=== PATIENT | female | born 1945 | race Caucasian/White ===

== ENCOUNTER → 2017-11-20 10:36 | Outpatient (CLI) | payer MEDICARE, BC, SELFPAY ==
[2017-11-20 11:56] LABS: Phosphorous 3.1 mg/dL (2.8-4.1)
[2017-11-20 12:12] LABS: Vitamin D 25 Hydroxy (D3) 58.1 ng/mL (30.0-100.0)
[2017-11-22 14:58] LABS: Parathyroid Hormone Int 134 pg/mL (14-64)
[2017-11-27 13:33] LABS: N-Telopeptide Serum 7.6 nM BCE (6.2-19.0)
== END ==
PROVIDERS: PCP Family Medicine; Visit Provider Nurse Practitioner
DX: M81.0 Age-related osteoporosis without current pathological fracture (principal)
CPT/HCPCS: 36415; 82306; 82310; 82523; 83970; 84100

== ENCOUNTER 2017-12-02 11:34 | Emergency (ER) | payer MEDICARE, BC, SELFPAY ==
[2017-12-02 11:35] VITALS: BP 180/69; PULSE 79; RESP 20; TEMP 36.4; O2SAT 98; BMI 20.7
--- NOTE | 2017-12-02 11:49 | DI.RAD.S_ITS ---
PROCEDURE: XR CHEST 1V INDICATIONS: Chest Pain TECHNIQUE: One view of the chest was acquired. COMPARISON: None. FINDINGS: Surgical changes and devices: None. Lungs and pleura: No pleural effusions or pneumothorax. Lungs are clear. Mild biapical pleural thickening. Mediastinum: Mediastinal contours appear normal. Heart size is normal. Bones and chest wall: No suspicious bony lesions. Degenerative a.c. joint disease, right greater than left. Overlying soft tissues appear unremarkable. IMPRESSION: No acute cardiopulmonary abnormality. Dictated by: Garry Santos M.D. on 12/02/2017 at 12:11 Approved by: Garry Santos M.D. on 12/02/2017 at 12:15
--- NOTE | 2017-12-02 11:50 | ED.CHESTPAIN ---
HPI - Chest Pain General Chief Complaint: Chest Pain Stated Complaint: PALPITATIONS,CHEST PAIN Time Seen by Provider: 12/02/17 11:40 Source: patient and family Mode of arrival: ambulatory Limitations: no limitations History of Present Illness HPI narrative: Patient presents to the emergency department with a chief complaint of left arm pain yesterday. She denies cardiac equivalent such as dizzy, weak or lightheaded. She denies nausea or vomiting. She denies any shortness of breath. MD complaint: other Onset (ago): day(s) Duration: intermittent Onset: during rest Pain location: other (Left arm) Severity: moderate Quality: sharp Pain radiation: LUE Relieving factors: rest Exacerbating factors: movement Related Data Home Medications Medication Instructions Recorded Confirmed risedronate 35 mg PO QWEEK #0 09/03/16 12/02/17 acyclovir 400 mg PO TID PRN 12/02/17 12/02/17 alprazolam 0.5 mg PO DAILY PRN 12/02/17 12/02/17 atorvastatin [Lipitor] 10 mg PO BEDTIME 12/02/17 12/02/17 sodium fluoride-pot nitrate 1 applic DENTAL DAILY 12/02/17 12/02/17 [PreviDent 5000 Sensitive] warfarin [Coumadin] 10 mg PO QPM 12/02/17 12/02/17 Previous Rx's Medication Instructions Recorded metoprolol tartrate 25 mg PO BID #180 tab 09/02/17 Allergies Allergy/AdvReac Type Severity Reaction Status Date / Time No Known Drug Allergies Allergy Verified 12/02/17 12:01 Review of Systems Review of Systems All systems reviewed & are unremarkable except as noted in HPI and below Constitutional Denies chills, Denies fever(s), Denies lethargy and Denies weakness Eyes Denies change in vision, Denies eye discharge, Denies irritation and Denies loss of vision ENT Ears, Nose, Mouth, and Throat: Denies change in voice, Denies neck pain and Denies sore throat Cardiovascular Denies chest pain, Denies irregular heart rhythm, Denies lightheadedness, Denies palpitations, Denies dyspnea, Denies dyspnea on exertion and Denies orthopnea Respiratory Denies cough, Denies dyspnea, Denies dyspnea on exertion and Denies wheezing Gastrointestinal Gastrointestinal: Denies abdominal pain, Denies change in bowel habits, Denies diarrhea, Denies nausea and Denies vomiting Genitourinary Denies hematuria, Denies flank pain, Denies urinary incontinence and Denies urinary urgency Musculoskeletal Denies neck pain and Reports radiating pain into limb Comments: Left arm pain Integumentary/Breasts Denies pruritus, Denies erythema, Denies rash and Denies wounds Neurologic Denies confusion, Denies loss of vision and Denies weakness Psychiatric Denies anxiety, Denies confusion, Denies depression, Denies homicidal ideation and Denies suicidal ideation Endocrine Denies palpitations Hematologic/Lymphatic Denies easy bruising Allergic/Immunologic Denies wheezing PFSH Surgical History History of hip replacement History of hip replacement Status post colostomy Status post hernia repair Status post hernia repair Family History Father Hypertension Mental health problem Mother Hypertension Hyperlipidemia Social History Smoking Status: Never smoker Exam Initial Vital Signs Initial Vital Signs: Vital Signs Temperature 97.6 F 12/02/17 11:35 Pulse Rate 79 12/02/17 11:35 Respiratory Rate 20 12/02/17 11:35 Blood Pressure 180/69 H 12/02/17 11:35 Pulse Oximetry 98 12/02/17 11:35 Const General: cooperative and well developed Nutritional Appearance: well nourished Orientation: alert, awake, oriented x3 and not confused Eyes General: appearance normal, both eyes and all related structures Eyelids: eyelids normal Conjunctivae: conjunctivae normal Sclera: sclerae normal Pupils: PERRL EOM: EOM intact bilaterally Chest Chest: normal inspection of the chest Cardio Rate: regular rate Rhythm: regular rhythm Heart Sounds: no click, no gallops, no murmurs and no rubs Pulses: normal peripheral pulses GI Inspection: non-distended Palpation: soft, no hepatosplenomegaly, No guarding, No pulsatile mass and No tender Auscultation: normal bowel sounds Back/Spine/Pelvis Back: No CVA tenderness Cervical Spine: cervical ROM normal and No pain with cervical ROM Thoracic/Lumbar Spine: thoracic and lumbar spine normal to inspection Skin General: no rashes or lesions noted, No jaundice and No petechiae Neuro General: alert, oriented x3, gait normal and no focal motor deficits Speech: speech normal Extrem Left upper extremity: shoulder/upper arm (With firm range of motion examination of left upper extremity patient has reproduction of the pain that brought her) Course Orders Ordered: ED Orders 12/02/17 11:18 Prothrombin Time INR Stat 12/02/17 11:48 Complete Blood Count AUTO DIFF Stat Comprehensive Metabolic Panel Stat Lipase Stat T4 Thyroxine Stat Thyroid Stimulating Hormone Stat Troponin with CK Cardiac Panel Stat 12/02/17 11:49 XR chest 1V Stat EKG-12 Lead Stat 12/02/17 12:59 CT angio chest PE protocol Stat 12/02/17 14:30 Troponin I Stat Discontinued Medications Aspirin (Aspirin Chew) 324 mg PO NOW ONE Stop: 12/02/17 11:46 Last Admin: 12/02/17 12:01 Dose: 324 mg Sodium Chloride (Normal Saline 0.9%) 1,000 mls @ 150 mls/hr IV CONT ZOHAIB Last Admin: 12/02/17 12:01 Dose: 150 mls/hr Vital Signs - 8 hr 12/02/17 12:36 12/02/17 13:30 12/02/17 14:33 Pulse Rate 53 L 98 H 50 L Respiratory Rate 22 20 13 Blood Pressure [Right Arm] 135/65 H 113/67 132/74 H Pulse Oximetry 100 96 100 12/02/17 15:30 Pulse Rate 47 L Respiratory Rate 17 Blood Pressure [Right Arm] 113/76 Pulse Oximetry 99 MDM - Chest Pain Differential Diagnosis Likely pneumothorax, stable angina, unstable angina pectoris, atypical chest pain, st elevation myocardial infarction, costochondritis and chest pain Medical Records Data Attestation: I reviewed the patient's medical records. Lab Data Attestation: I reviewed the patient's lab results. Result diagrams: 12/02/17 11:48 12/02/17 11:48 Lab Results 12/02/17 12/02/17 12/02/17 Range/Units 11:18 11:48 11:48 WBC 6.3 (4.5-11.0) X10^3/uL RBC 4.46 (4.0-5.2) X10^6/uL Hgb 13.5 (12.0-16.0) g/dL Hct 40.3 (36-46) % MCV 90.4 (80-100) fL MCH 30.3 (26-34) PG MCHC 33.5 (30-36) % RDW 14.1 (11.6-14.8) % Plt Count 220 (150-400) X10^3/uL Neut % (Auto) 51.1 (50-75) % Lymph % (Auto) 38.5 (25-40) % [place] % (Auto) 9.0 (3-14) % Eos % (Auto) 0.9 L (2-4) % Baso % (Auto) 0.5 (0-2) % Neut # (Auto) 3200 (5930-2986) /uL PT 28.4 H (10.1-12.7) SECONDS INR 2.6 H (0.9-1.3) Sodium 139 (137-145) mmol/L Potassium 4.1 (3.4-5.1) mmol/L Chloride 104 (98-107) mmol/L Carbon Dioxide 25 (22-32) mmol/L BUN 16 (7-17) mg/dL Creatinine 0.70 (0.52-1.04) mg/dL Estimated GFR > 60.0 (>60) mL/min BUN/Creatinine Ratio 22.9 H (6-22) Glucose 106 (80-110) mg/dL Calcium 10.4 H (8.4-10.2) mg/dL Total Bilirubin 0.7 (0.2-1.3) mg/dL AST 39 H (14-36) IU/L ALT 35 (9-52) IU/L Alkaline Phosphatase 74 (38-126) U/L Total Creatine Kinase 74 (30-135) U/L Troponin I < 0.012 (0.01-0.034) ng/mL Total Protein 7.7 (6.3-8.2) g/dL Albumin 4.7 (3.5-5.0) g/dL Globulin 3.0 (1.7-4.1) g/dL Albumin/Globulin Ratio 1.6 (1.0-2.8) Lipase 103 (23-300) U/L TSH (0.47-4.68) uIU/mL Thyroxine (T4) (5.5-11.0) ug/dL 12/02/17 12/02/17 Range/Units 11:48 14:30 WBC (4.5-11.0) X10^3/uL RBC (4.0-5.2) X10^6/uL Hgb (12.0-16.0) g/dL Hct (36-46) % MCV (80-100) fL MCH (26-34) PG MCHC (30-36) % RDW (11.6-14.8) % Plt Count (150-400) X10^3/uL Neut % (Auto) (50-75) % Lymph % (Auto) (25-40) % [place] % (Auto) (3-14) % Eos % (Auto) (2-4) % Baso % (Auto) (0-2) % Neut # (Auto) (4380-3553) /uL PT (10.1-12.7) SECONDS INR (0.9-1.3) Sodium (137-145) mmol/L Potassium (3.4-5.1) mmol/L Chloride (98-107) mmol/L Carbon Dioxide (22-32) mmol/L BUN (7-17) mg/dL Creatinine (0.52-1.04) mg/dL Estimated GFR (>60) mL/min BUN/Creatinine Ratio (6-22) Glucose (80-110) mg/dL Calcium (8.4-10.2) mg/dL Total Bilirubin (0.2-1.3) mg/dL AST (14-36) IU/L ALT (9-52) IU/L Alkaline Phosphatase (38-126) U/L Total Creatine Kinase (30-135) U/L Troponin I < 0.012 (0.01-0.034) ng/mL Total Protein (6.3-8.2) g/dL Albumin (3.5-5.0) g/dL Globulin (1.7-4.1) g/dL Albumin/Globulin Ratio (1.0-2.8) Lipase (23-300) U/L TSH 2.45 (0.47-4.68) uIU/mL Thyroxine (T4) 8.89 (5.5-11.0) ug/dL ABG Data Interpretation: PROCEDURE: CT ANGIO CHEST PE PROTOCOL INDICATIONS: CP, SOB, recent low INR, Factor V Leiden TECHNIQUE: After the administration of intravenous contrast, 2 mm thick sections acquired from the pulmonary apices to the posterior costophrenic angles. 3-dimensional maximum intensity projection (MIP) coronal and sagittal reformats were then acquired through the thorax. For radiation dose reduction, the following was used: automated exposure control, adjustment of mA and/or kV according to patient size. COMPARISON: None. FINDINGS: Image quality: Excellent. Pulmonary arteries: Pulmonary arteries are normal in size, and demonstrate no intraluminal filling defects to suggest central pulmonary embolism. Lungs and pleura: Atelectasis noted in the dependent portion the lung bases. 4 mm subpleural nodule noted in the left upper lobe (series 5, image 13). No pleural effusions or pneumothorax. Central and peripheral airways are patent. Mediastinum: Heart size is normal, without pericardial effusion. No mediastinal or hilar adenopathy. Thoracic aorta is normal in caliber and enhancement. Esophagus is normal in caliber, without hiatal hernia. Bones and chest wall: Mild pectus excavatum deformity noted. No suspicious bony lesions. Ribs and thoracic spine appear intact throughout. Spine degenerative disc disease and facet arthropathy. Thyroid gland is within normal limits. No axillary or supraclavicular adenopathy. Abdomen: Visualized upper abdominal solid organs appear normal in the early arterial phase of enhancement. IMPRESSION: 1. No pulmonary embolus. 2. 4 mm left upper lobe subpleural nodule. Recommend followup imaging based on criteria outlined below. Fleischner Society criteria for SOLID lung nodule followup. Nodule size (mm)Low-risk patientHigh-risk patient<6 (single or multiple)No routine followup.Optional CT at 12 months. 6-8 (single or multiple)CT at 6-12 months, then optional CT at 18-24 mo.CT at 6-12 months, then CT at 18-24 months. >8 (single)CT at 3 months, PET-CT, or biopsy. Same as for low-risk pts. >8 (multiple)CT at 3-6 months, then optional CT at 18-24 mo.CT at 3-6 months, then CT at 18-24 months. Recommendations do not apply to lung cancer screening, patients with immunosuppression, or patients with known primary cancer. Dictated by: Vinita Chris MD, PhD on 12/02/2017 at 12:53 Approved by: Vinita Chris MD, PhD on 12/02/2017 at 12:58 Discharge Plan Departure Patient Disposition: Home, Self-Care Clinical Impression: Heart palpitations, Arm pain, left Discharge Date/Time: 12/02/17 16:01 Interventions: ED Discharge Assessment Last Done: 12/02/17 16:00 Instructions: DI for Palpitations Activity Restrictions/Additional Instructions: *You have been diagnosed with [ palpitations, left arm pain ] *What to do: * continue to take medications as directed *Follow up with your primary care provider in 2-3 days, call tomorrow for an appointment *Return to ER if you should have any new, worsening or concerning symptoms Prescriptions: No Action risedronate 35 MG tablet,delayed release (DR/EC) 35 mg PO QWEEK Qty: 0 RF: 0 metoprolol tartrate 25 MG tablet 25 mg PO BID Qty: 180 RF: 2 alprazolam 0.5 mg tablet 0.5 mg PO DAILY PRN (Reason: Anxiety) RF: 0 sodium fluoride-pot nitrate [PreviDent 5000 Sensitive] 1.1-5 % paste 1 applic Dental DAILY RF: 0 atorvastatin [Lipitor] 10 mg tablet 10 mg PO BEDTIME RF: 0 warfarin [Coumadin] 10 MG tablet 10 mg PO QPM RF: 0 acyclovir 400 MG tablet 400 mg PO TID PRN (Reason: Cold Sores) RF: 0
[2017-12-02] MEDS: SODIUM CHLORIDE 0.9% 1,000 ML 150 ML IV (12:01)
[2017-12-02] MEDS: ASPIRIN 81 MG TAB 324 MG PO (12:01)
[2017-12-02 12:04] LABS: Add Manual Diff / Slide Review NO; Basophils Percent Auto 0.5 % (0-2); Eosinophils Percent Auto 0.9 % (2-4); Hematocrit 40.3 % (36-46); Hemoglobin 13.5 g/dL (12.0-16.0); Lymphocytes Percent Auto 38.5 % (25-40); Mean Corpuscular HGB Conc 33.5 % (30-36); Mean Corpuscular Hemoglobin 30.3 PG (26-34); Mean Corpuscular Volume 90.4 fL (80-100); Neutrophils Absolute Auto 3200 /uL (3000-5900); Neutrophils Percent Auto 51.1 % (50-75); Platelet Count 220 X10^3/uL (150-400); Red Blood Cell Count 4.46 X10^6/uL (4.0-5.2); Red Cell Distribution Width 14.1 % (11.6-14.8); White Blood Cell Count 6.3 X10^3/uL (4.5-11.0)
[2017-12-02 12:12] LABS: Alanine Aminotransferase 35 IU/L (9-52); Albumin 4.7 g/dL (3.5-5.0); Albumin Globulin Ratio 1.6 (1.0-2.8); Alkaline Phosphatase 74 U/L (38-126); Aspartate Aminotransferase 39 IU/L (14-36); BUN Creatinine Ratio 22.9 (6-22); Bilirubin Total 0.7 mg/dL (0.2-1.3); Blood Urea Nitrogen 16 mg/dL (7-17); Calcium 10.4 mg/dL (8.4-10.2); Carbon Dioxide 25 mmol/L (22-32); Chloride 104 mmol/L (98-107); Creatine Kinase 74 U/L (30-135); Estimated Glomerular Filt Rate > 60.0 mL/min (>60); Glucose 106 mg/dL (80-110); HEMOLYSIS 19 (0-50); Lipase 103 U/L (23-300); Potassium 4.1 mmol/L (3.4-5.1); Sodium 139 mmol/L (137-145); Total Protein 7.7 g/dL (6.3-8.2)
[2017-12-02 12:24] LABS: Troponin I < 0.012 ng/mL (0.01-0.034)
[2017-12-02 12:36] VITALS: BP 135/65; PULSE 53; RESP 22; O2SAT 100
[2017-12-02 12:39] LABS: T4 Total Thyroxine 8.89 ug/dL (5.5-11.0)
[2017-12-02 12:47] LABS: INR 2.6 (0.9-1.3); Prothrombin Time 28.4 SECONDS (10.1-12.7)
[2017-12-02 12:53] LABS: Thyroid Stimulating Hormone 2.45 uIU/mL (0.47-4.68)
--- NOTE | 2017-12-02 12:59 | DI.CT.S_ITS ---
PROCEDURE: CT ANGIO CHEST PE PROTOCOL INDICATIONS: CP, SOB, recent low INR, Factor V Leiden TECHNIQUE: After the administration of intravenous contrast, 2 mm thick sections acquired from the pulmonary apices to the posterior costophrenic angles. 3-dimensional maximum intensity projection (MIP) coronal and sagittal reformats were then acquired through the thorax. For radiation dose reduction, the following was used: automated exposure control, adjustment of mA and/or kV according to patient size. COMPARISON: None. FINDINGS: Image quality: Excellent. Pulmonary arteries: Pulmonary arteries are normal in size, and demonstrate no intraluminal filling defects to suggest central pulmonary embolism. Lungs and pleura: Atelectasis noted in the dependent portion the lung bases. 4 mm subpleural nodule noted in the left upper lobe (series 5, image 13). No pleural effusions or pneumothorax. Central and peripheral airways are patent. Mediastinum: Heart size is normal, without pericardial effusion. No mediastinal or hilar adenopathy. Thoracic aorta is normal in caliber and enhancement. Esophagus is normal in caliber, without hiatal hernia. Bones and chest wall: Mild pectus excavatum deformity noted. No suspicious bony lesions. Ribs and thoracic spine appear intact throughout. Spine degenerative disc disease and facet arthropathy. Thyroid gland is within normal limits. No axillary or supraclavicular adenopathy. Abdomen: Visualized upper abdominal solid organs appear normal in the early arterial phase of enhancement. IMPRESSION: 1. No pulmonary embolus. 2. 4 mm left upper lobe subpleural nodule. Recommend followup imaging based on criteria outlined below. Fleischner Society criteria for SOLID lung nodule followup. Nodule size (mm)Low-risk patientHigh-risk patient<6 (single or multiple)No routine followup.Optional CT at 12 months. 6-8 (single or multiple)CT at 6-12 months, then optional CT at 18-24 mo.CT at 6-12 months, then CT at 18-24 months. >8 (single)CT at 3 months, PET-CT, or biopsy. Same as for low-risk pts. >8 (multiple)CT at 3-6 months, then optional CT at 18-24 mo.CT at 3-6 months, then CT at 18-24 months. Recommendations do not apply to lung cancer screening, patients with immunosuppression, or patients with known primary cancer. Dictated by: Vinita Chris MD, PhD on 12/02/2017 at 12:53 Approved by: Vinita Chris MD, PhD on 12/02/2017 at 12:58
[2017-12-02 13:30] VITALS: BP 113/67; PULSE 98; RESP 20; O2SAT 96
[2017-12-02 14:33] VITALS: BP 132/74; PULSE 50; RESP 13; O2SAT 100
[2017-12-02 15:05] LABS: Troponin I < 0.012 ng/mL (0.01-0.034)
[2017-12-02 15:30] VITALS: BP 113/76; PULSE 47; RESP 17; O2SAT 99
--- NOTE | 2018-01-18 07:04 | PC.NURSE ---
IV Fluids stop time 1601, on 12/02/17 for total infused amount of 750ml. pt tolerated well.
== END 2017-12-02 16:01 | disposition home or self-care (01) ==
PROVIDERS: Emergency Provider Emergency Medicine; PCP Family Medicine
DX: R00.2 Palpitations (principal); M79.602 Pain in left arm
CPT/HCPCS: 36415; 36591; 71045; 71275; 80053; 81003; 82550; 82553; 83690; 84436; 84443; 84484; 85025; 85610; 93005; 96360; 96361; 99283; 99285; Q9967

== ENCOUNTER → 2017-12-16 11:03 | Outpatient (CLI) | payer MEDICARE, BC, SELFPAY ==
[2017-12-18 13:45] LABS: Parathyroid Hormone Int 139 pg/mL (14-64)
== END ==
PROVIDERS: PCP Family Medicine; Visit Provider Nurse Practitioner
DX: M81.0 Age-related osteoporosis without current pathological fracture (principal)
CPT/HCPCS: 36415; 82310; 83970

== ENCOUNTER → 2017-12-23 11:25 | Outpatient (CLI) | payer MEDICARE, BC, SELFPAY ==
[2017-12-23 15:59] LABS: Calcium 24 Hour Urine 68 mg/day (100-300); Calcium Urine Random 3.8; Collection Time Urine 24 Hours; Total Volume Urine 1800 mL
[2017-12-23 16:02] LABS: Collection Time Urine 24 Hours; Creatinine 24 Hour Urine 598 mg/day (800-1800); Creatinine Urine Random 33.2 mg/dL; Total Volume Urine 1800 mL
== END ==
PROVIDERS: PCP Family Medicine; Visit Provider Nurse Practitioner
DX: M81.0 Age-related osteoporosis without current pathological fracture (principal)
CPT/HCPCS: 82340; 82570

== ENCOUNTER → 2018-02-26 08:34 | Outpatient (CLI) | payer MEDICARE, BC, SELFPAY ==
--- NOTE | 2018-02-26 | DI.MG.S_ITS ---
BILATERAL DIGITAL SCREENING MAMMOGRAM 3D/2D WITH CAD: 02/26/2018 CLINICAL: Routine screening. Family history of breast cancer. Comparison is made to exams dated: 02/20/2017 mammogram and 02/20/2016 mammogram - [facility]. There are scattered fibroglandular elements in both breasts. Current study was also evaluated with a Computer Aided Detection (CAD) system. No significant masses, calcifications, or other findings are seen in either breast. There has been no significant interval change. IMPRESSION: NEGATIVE There is no mammographic evidence of malignancy. A 1 year screening mammogram is recommended. This exam was interpreted at Station ID: [id number]. NOTE: For mammograms, a report in lay terms will be sent to the patient. Approximately 15% of breast malignancies will not be visualized mammographically. In the management of a palpable breast mass, a negative mammogram must not discourage biopsy of a clinically suspicious lesion. Electronically Signed By: Clay elizondo/karen:02/26/2018 10:01:54 letter sent: Normal Exam ACR BI-RADS Category 1: Negative [id number]
== END ==
PROVIDERS: PCP Family Medicine; Visit Provider Family Medicine
DX: Z12.31 Encounter for screening mammogram for malignant neoplasm of breast (principal); Z80.3 Family history of malignant neoplasm of breast
CPT/HCPCS: 77063; 77067

== ENCOUNTER → 2018-02-26 08:54 | Outpatient (CLI) | payer MEDICARE, BC, SELFPAY ==
[2018-02-26 10:16] LABS: Alanine Aminotransferase 28 IU/L (9-52); Albumin 4.5 g/dL (3.5-5.0); Albumin Globulin Ratio 1.9 (1.0-2.8); Alkaline Phosphatase 69 U/L (38-126); Aspartate Aminotransferase 37 IU/L (14-36); BUN Creatinine Ratio 18.8 (6-22); Bilirubin Total 0.5 mg/dL (0.2-1.3); Blood Urea Nitrogen 15 mg/dL (7-17); Calcium 10.4 mg/dL (8.4-10.2); Carbon Dioxide 28 mmol/L (22-32); Chloride 108 mmol/L (98-107); Cholesterol 156 mg/dL (140-199); Estimated Glomerular Filt Rate > 60.0 mL/min (>60); Globulin 2.4 g/dL (1.7-4.1); Glucose 99 mg/dL (80-110); HDL Cholesterol 74 mg/dL (40-60); HEMOLYSIS < 15 (0-50); LDL Cholesterol Calculated 71 mg/dL (<100); Potassium 4.5 mmol/L (3.4-5.1); Sodium 144 mmol/L (137-145); Total Protein 6.9 g/dL (6.3-8.2); Triglycerides 55 mg/dL (35-150)
[2018-02-26 10:33] LABS: Add Manual Diff / Slide Review NO; Basophils Percent Auto 0.4 % (0-2); Eosinophils Percent Auto 1.3 % (2-4); Hematocrit 39.9 % (36-46); Hemoglobin 13.4 g/dL (12.0-16.0); Lymphocytes Percent Auto 25.9 % (25-40); Mean Corpuscular HGB Conc 33.7 % (30-36); Mean Corpuscular Hemoglobin 30.5 PG (26-34); Mean Corpuscular Volume 90.5 fL (80-100); Neutrophils Absolute Auto 3500 /uL (3000-5900); Neutrophils Percent Auto 64.4 % (50-75); Platelet Count 203 X10^3/uL (150-400); Red Blood Cell Count 4.41 X10^6/uL (4.0-5.2); Red Cell Distribution Width 14.3 % (11.6-14.8); White Blood Cell Count 5.5 X10^3/uL (4.5-11.0)
== END ==
PROVIDERS: PCP Family Medicine; Visit Provider Family Medicine
DX: I10 Essential (primary) hypertension (principal); D68.51 Activated protein C resistance; E78.5 Hyperlipidemia, unspecified; Z86.2 Personal history of diseases of the blood and blood-forming organs and certain disorders involving the immune mechanism
CPT/HCPCS: 36415; 80053; 80061; 85025

== ENCOUNTER 2018-05-12 09:05 | Emergency (ER) | payer MEDICARE, BC, SELFPAY ==
[2018-05-12 09:14] VITALS: BP 137/97; PULSE 70; RESP 14; TEMP 36.4; O2SAT 100
[2018-05-12 09:36] LABS: Add Manual Diff / Slide Review NO; Basophils Percent Auto 0.2 % (0-2); Eosinophils Percent Auto 0.7 % (2-4); Hematocrit 39.3 % (36-46); Lymphocytes Percent Auto 17.3 % (25-40); Mean Corpuscular HGB Conc 33.1 % (30-36); Mean Corpuscular Volume 90.4 fL (80-100); Monocytes Percent Auto 6.9 % (3-14); Neutrophils Absolute Auto 5200 /uL (3000-5900); Neutrophils Percent Auto 74.9 % (50-75); Platelet Count 186 X10^3/uL (150-400); Red Blood Cell Count 4.35 X10^6/uL (4.0-5.2); White Blood Cell Count 6.9 X10^3/uL (4.5-11.0)
[2018-05-12 09:44] LABS: Prothrombin Time 33.2 SECONDS (10.1-12.7)
[2018-05-12 09:47] LABS: PTT Partial Thromboplastin Tim 42 SECONDS (26.4-36.2)
[2018-05-12 09:50] LABS: Alanine Aminotransferase 25 IU/L (9-52); Albumin 4.5 g/dL (3.5-5.0); Albumin Globulin Ratio 1.7 (1.0-2.8); Alkaline Phosphatase 64 U/L (38-126); Aspartate Aminotransferase 35 IU/L (14-36); BUN Creatinine Ratio 18.8 (6-22); Bilirubin Total 0.6 mg/dL (0.2-1.3); Blood Urea Nitrogen 15 mg/dL (7-17); Calcium 10.2 mg/dL (8.4-10.2); Carbon Dioxide 25 mmol/L (22-32); Chloride 107 mmol/L (98-107); Estimated Glomerular Filt Rate > 60.0 mL/min (>60); Globulin 2.6 g/dL (1.7-4.1); Glucose 94 mg/dL (80-110); HEMOLYSIS < 15 (0-50); Lipase 85 U/L (23-300); Sodium 143 mmol/L (137-145); Total Protein 7.1 g/dL (6.3-8.2)
--- NOTE | 2018-05-12 10:33 | DI.US.S_ITS ---
PROCEDURE: US ABDOMEN COMPLETE INDICATIONS: PAIN TECHNIQUE: Real-time scanning was performed of the abdominal and retroperitoneal organs, with image documentation. COMPARISON: None. FINDINGS: Liver: Liver is normal in size and homogeneous in echotexture. Gallbladder: No gallstones. No gallbladder wall thickening, pericholecystic fluid or sonographic Nichole's sign. Biliary ducts: Intrahepatic bile ducts are non-dilated. Extrahepatic bile duct caliber measures 3.2 mm. Normal is 6-7 mm or less in diameter, or 10 mm or less post-cholecystectomy. Pancreas: Visualized portions of the pancreas are sonographically normal. Spleen: Spleen is normal in size and homogeneous in echotexture. Kidneys: Kidneys are normal in size and echotexture. Right kidney measures 10.2 cm long; left kidney measures 10.5 cm long. No hydronephrosis or nephrolithiasis. No solid masses. Aorta: Visualized aorta is normal in caliber at less than 3 cm. Iliacs: Proximal common iliac arteries are normal in caliber at less than 2.5 cm. IVC: Intrahepatic inferior vena cava is patent. Miscellaneous: No free abdominal fluid. IMPRESSION: Normal abdominal ultrasound exam. Dictated by: Tony Eller M.D. on 05/12/2018 at 12:12 Approved by: Tony Eller M.D. on 05/12/2018 at 12:18
--- NOTE | 2018-05-12 10:37 | ED_ITS ---
HPI - Abdominal Pain General Chief Complaint: Abdominal Pain Stated Complaint: right side rib pain x2 days Time Seen by Provider: 05/12/18 09:08 Source: patient Mode of arrival: ambulatory Limitations: no limitations History of Present Illness HPI narrative: patient complains of right flank pain for the last couple of days. She states that she has not been nauseated or vomiting and has not had any fevers. No dysuria or hematuria. Patient states she has a history of appendectomy but still has her gallbladder. Patient has also had complicated diverticulitis with rupture and colostomy with subsequent takedown. Patient denies any diarrhea or constipation this time. She denies any vaginal symptoms. She states that the pain comes and goes randomly though seems to be little worse at night. Eating makes it better briefly but then the pain returns. Patient has no history of ulcers far she knows. She states she has had a little bit of cough but has not had fevers or any sputum production. She does not know if any of her 5 siblings or parents have had cholelithiasis. Severity scale (1-10): 5 Related Data Home Medications Medication Instructions Recorded Confirmed risedronate 35 mg PO QWEEK #0 09/03/16 05/12/18 acyclovir 400 mg PO TID PRN 12/02/17 05/12/18 atorvastatin [Lipitor] 10 mg PO BEDTIME 12/02/17 05/12/18 sodium fluoride-pot nitrate 1 applic DENTAL DAILY 12/02/17 05/12/18 [PreviDent 5000 Sensitive] calcium citrate 250 mg PO DAILY 05/12/18 05/12/18 cholecalciferol (vitamin D3) 1,000 unit PO DAILY 05/12/18 05/12/18 [Vitamin D3] Previous Rx's Medication Instructions Recorded metoprolol tartrate 25 mg PO BID #180 tab 09/02/17 alprazolam 0.5 mg tablet 0.5 mg PO DAILY PRN #30 tab 03/10/18 warfarin 10 mg tablet 10 mg PO QPM #90 tab 04/09/18 Allergies Allergy/AdvReac Type Severity Reaction Status Date / Time No Known Drug Allergies Allergy Verified 05/12/18 09:17 Review of Systems Review of Systems All systems reviewed & are unremarkable except as noted in HPI and below Constitutional Denies chills, Denies fever(s), Denies lethargy and Denies weakness Eyes Denies change in vision, Denies eye discharge, Denies irritation and Denies loss of vision ENT Ears, Nose, Mouth, and Throat: Denies change in voice, Denies neck pain and Denies sore throat Cardiovascular Denies chest pain, Denies irregular heart rhythm, Denies lightheadedness, Denies palpitations, Denies dyspnea, Denies dyspnea on exertion and Denies orthopnea Respiratory Denies cough, Denies dyspnea, Denies dyspnea on exertion and Denies wheezing Gastrointestinal Gastrointestinal: Reports abdominal pain, Denies change in bowel habits, Denies diarrhea, Denies nausea and Denies vomiting Genitourinary Denies hematuria, Denies flank pain, Denies urinary incontinence and Denies urinary urgency Musculoskeletal Denies neck pain Integumentary/Breasts Denies pruritus, Denies erythema, Denies rash and Denies wounds Neurologic Denies confusion, Denies loss of vision and Denies weakness Psychiatric Denies anxiety, Denies confusion, Denies depression, Denies homicidal ideation and Denies suicidal ideation Endocrine Denies palpitations Hematologic/Lymphatic Denies easy bruising Allergic/Immunologic Denies wheezing [facility] Medical History Anxiety (Chronic 1970) Anxiety (Chronic Unknown) Atrial fibrillation (Chronic 2004) Cataracts, bilateral (Chronic Unknown) Diverticular disease (Chronic 2009) Factor V Leiden (Chronic Unknown) Herpes (Chronic 2002) Hyperlipemia (Chronic Unknown) Osteoarthritis (Chronic 2001) Osteopenia (Chronic Unknown) Osteoporosis (Chronic Unknown) Chickenpox (Resolved ~1949) Deep vein thrombosis (Resolved 2001) Fractures (Resolved 2006) Measles (Resolved ~1954) Mumps (Resolved ~1954) Surgical History History of hip replacement History of hip replacement Status post colostomy Status post hernia repair Status post hernia repair Family History Father Hypertension Mental health problem Mother Hypertension Hyperlipidemia Social History Smoking Status: Never smoker Exam Initial Vital Signs Initial Vital Signs: Vital Signs Temperature 97.5 F L 05/12/18 09:14 Pulse Rate 70 05/12/18 09:14 Respiratory Rate 14 05/12/18 09:14 Blood Pressure 137/97 H 05/12/18 09:14 Pulse Oximetry 100 05/12/18 09:14 Const General: cooperative and well developed Nutritional Appearance: well nourished Orientation: alert, awake, oriented x3 and not confused [facility] Head: normocephalic and atraumatic Ears: external ears normal and TM's normal bilaterally Nose: external nose normal and No nasal discharge Face and sinus: sinuses nontender, face symmetric, no sinus tenderness and No dry mucous membranes Mouth: oral mucosae normal and moist mucous membranes Teeth and gingiva: dentition normal Throat: tonsils normal and uvula midline Eyes General: appearance normal, both eyes and all related structures Eyelids: eyelids normal Conjunctivae: conjunctivae normal Sclera: sclerae normal Pupils: PERRL EOM: EOM intact bilaterally Neck Neck: normal visual inspection, trachea midline, No lymphadenopathy, No midline deformity and No JVD Lymphatic: No lymphedema Chest Chest: normal inspection of the chest Resp Effort & Inspection: normal respiratory effort, able to speak in complete sentences, no respiratory distress and no use of accessory muscles Auscultation: clear to auscultation bilaterally, no rales, no rhonchi and no wheezes Cardio Rate: regular rate Rhythm: regular rhythm Heart Sounds: no click, no gallops, no murmurs and no rubs Pulses: normal peripheral pulses GI Inspection: non-distended Palpation: soft, no hepatosplenomegaly, No guarding, No pulsatile mass and tender ( Mild, right flank.) Back/Spine/Pelvis Back: No CVA tenderness Cervical Spine: cervical ROM normal and No pain with cervical ROM Thoracic/Lumbar Spine: thoracic and lumbar spine normal to inspection Skin General: no rashes or lesions noted, No jaundice and No petechiae Neuro General: alert, oriented x3, gait normal and no focal motor deficits Speech: speech normal Extrem General: full ROM, no clubbing, cyanosis or edema, no pedal edema and no calf tenderness Psych Appearance: well kempt Mental Status: mental status grossly normal Attitude: cooperative Thought Content: normal and suicidality Judgment: judgment good Course Course Narrative: Patient was worked up with labs, UA, and ultrasound. She declined analgesia in the emergency department. Orders Ordered: ED Orders 05/12/18 09:19 EKG-12 Lead Stat 05/12/18 09:30 Complete Blood Count AUTO DIFF Stat Comprehensive Metabolic Panel Stat Lipase Stat Partial Thromboplastin Time Stat Prothrombin Time INR Stat Vital Signs - 8 hr 05/12/18 09:14 Temperature 97.5 F L Pulse Rate 70 Respiratory Rate 14 Blood Pressure 137/97 H Pulse Oximetry 100 MDM - Abdominal Pain Medical Records Attestation: I reviewed the patient's medical records. Lab Data Attestation: I reviewed the patient's lab results. Result diagrams: 05/12/18 09:30 05/12/18 09:30 Lab Results 05/12/18 05/12/18 05/12/18 Range/Units 09:30 09:30 09:30 WBC 6.9 (4.5-11.0) X10^3/uL RBC 4.35 (4.0-5.2) X10^6/uL Hgb 13.0 (12.0-16.0) g/dL Hct 39.3 (36-46) % MCV 90.4 (80-100) fL MCH 30.0 (26-34) PG MCHC 33.1 (30-36) % RDW 14.0 (11.6-14.8) % Plt Count 186 (150-400) X10^3/uL Neut % (Auto) 74.9 (50-75) % Lymph % (Auto) 17.3 L (25-40) % [place] % (Auto) 6.9 (3-14) % Eos % (Auto) 0.7 L (2-4) % Baso % (Auto) 0.2 (0-2) % Neut # (Auto) 5200 (1096-4189) /uL PT 33.2 H (10.1-12.7) SECONDS INR 3.0 H (0.9-1.3) APTT 42 H (26.4-36.2) SECONDS Sodium 143 (137-145) mmol/L Potassium 4.0 (3.4-5.1) mmol/L Chloride 107 (98-107) mmol/L Carbon Dioxide 25 (22-32) mmol/L BUN 15 (7-17) mg/dL Creatinine 0.80 (0.52-1.04) mg/dL Estimated GFR > 60.0 (>60) mL/min BUN/Creatinine Ratio 18.8 (6-22) Glucose 94 (80-110) mg/dL Calcium 10.2 (8.4-10.2) mg/dL Total Bilirubin 0.6 (0.2-1.3) mg/dL AST 35 (14-36) IU/L ALT 25 (9-52) IU/L Alkaline Phosphatase 64 (38-126) U/L Total Protein 7.1 (6.3-8.2) g/dL Albumin 4.5 (3.5-5.0) g/dL Globulin 2.6 (1.7-4.1) g/dL Albumin/Globulin Ratio 1.7 (1.0-2.8) Lipase 85 (23-300) U/L Point of care testing: Urine Dip Bedside Urine Glucose Negative Bedside Urine Bilirubin - Negative Bedside Urine Ketone - Negative Urine Specific [place] 1.015 Bedside Urine Occult Blood - Negative Bedside Urine pH 6.0 Bedside Urine Protein - Negative Bedside Urine Urobilinogen - Negative Bedside Urine Nitrite - Negative Bedside Urine Leukocytes - Negative Esterase Imaging Data CT scan - abdomen: Radiologist's impression: PROCEDURE: CT KIDNEY URETER BLADDER (KUB) INDICATIONS: RIGHT flank pain TECHNIQUE: Noncontrast 5 mm thick sections acquired from the diaphragms to the symphysis. 5 mm thick coronal and sagittal reformats were then performed. For radiation dose reduction, the following was used: automated exposure control, adjustment of mA and/or kV according to patient size. COMPARISON: [facility], , US ABDOMEN COMPLETE, 05/12/2018, 11:03. FINDINGS: Image quality: Limited visualization of the bladder and lower pelvis secondary to metallic streak artifact from bilateral hip arthroplasties. Lung bases: Lung bases are clear. Heart size is normal. Urinary system: Both kidneys are normal in size. No kidney stones. No hydronephrosis or perinephric fat stranding. Both ureters appear non-dilated throughout their expected courses. Bladder wall thickness is normal; no calcified bladder stones. Other solid organs: Liver is prominent in size without gross nodularity. Gallbladder is unremarkable. Pancreas is normal in contours. Spleen is normal in size. No adrenal nodules. Peritoneum and bowel: Unenhanced bowel loops demonstrate normal wall thickness and caliber. No free fluid or air. Moderate stool is present throughout the colon. Appendix is normal in size. Nodes and vessels: No retroperitoneal or mesenteric adenopathy by size criteria. Aorta and inferior vena cava are normal in caliber. Paraesophageal varices are present. In addition, right tiesha-abdomen varices are present. Abdominal wall: No ventral hernias. Pelvis: No free pelvic fluid. No inguinal hernias or adenopathy. Bones: No suspicious bony lesions. No vertebral body compression fractures. IMPRESSION: 1. No nephroureterolithiasis. It is noted that the distal aspects of the ureters are obscured secondary to artifact as above. No hydronephrosis. 2. Moderate stool without obstruction. 3. Mild hepatomegaly with areas of varices suggesting development of potential portal venous hypertension. Dictated by: Imani Pretty M.D. on 05/12/2018 at 12:22 Approved by: Imani Pretty M.D. on 05/12/2018 at 12:28 US - abdomen: Radiologist's impression: [address] [address] Ultrasound Report Signed Patient: Jewell Henderson AMR#: [id number] : 07/24/1946Acct:[id number] Age/Sex: 72 / FDate of Service: 05/12/18 Loc: ED Accession Number: [id number] Procedure: US abdomen complete Ordering Provider: Daily Bond MD PROCEDURE: US ABDOMEN COMPLETE INDICATIONS: PAIN TECHNIQUE: Real-time scanning was performed of the abdominal and retroperitoneal organs, with image documentation. COMPARISON: None. FINDINGS: Liver: Liver is normal in size and homogeneous in echotexture. Gallbladder: No gallstones. No gallbladder wall thickening, pericholecystic fluid or sonographic Nichole's sign. Biliary ducts: Intrahepatic bile ducts are non-dilated. Extrahepatic bile duct caliber measures 3.2 mm. Normal is 6-7 mm or less in diameter, or 10 mm or less post-cholecystectomy. Pancreas: Visualized portions of the pancreas are sonographically normal. Spleen: Spleen is normal in size and homogeneous in echotexture. Kidneys: Kidneys are normal in size and echotexture. Right kidney measures 10.2 cm long; left kidney measures 10.5 cm long. No hydronephrosis or nephrolithiasis. No solid masses. Aorta: Visualized aorta is normal in caliber at less than 3 cm. Iliacs: Proximal common iliac arteries are normal in caliber at less than 2.5 cm. IVC: Intrahepatic inferior vena cava is patent. Miscellaneous: No free abdominal fluid. IMPRESSION: Normal abdominal ultrasound exam. Dictated by: Tony Ellre M.D. on 05/12/2018 at 12:12 Approved by: Tony Eller M.D. on 05/12/2018 at 12:18 [facility] Narrative Medical decision making narrative: Workup was unremarkable. Patient was found to be feeling better, and I feel she was stable for discharge home. No emergent condition was found. We have discussed home management of the symptoms , as well as the usual indications for return. Discharge Plan Departure Patient Disposition: Home Clinical Impression: Abdominal pain Discharge Date/Time: 05/12/18 13:30 Interventions: ED Discharge Assessment Last Done: 05/12/18 13:29 Instructions: DI for Abdominal Pain-Adult Activity Restrictions/Additional Instructions: Your labs, CT scan, and ultrasound all looked good. There is no evidence of a serious problem causing your pain. Prescriptions: No Action alprazolam 0.5 mg tablet 0.5 mg PO DAILY PRN (Reason: Anxiety) Qty: 30 RF: 0 risedronate 35 MG tablet,delayed release (DR/EC) 35 mg PO QWEEK Qty: 0 RF: 0 metoprolol tartrate 25 MG tablet 25 mg PO BID Qty: 180 RF: 2 warfarin [Coumadin] 10 mg tablet 10 mg PO QPM Qty: 90 RF: 1 calcium citrate 250 mg calcium Tablet 250 mg PO DAILY RF: 0 cholecalciferol (vitamin D3) [Vitamin D3] 1,000 unit Tablet 1,000 unit PO DAILY RF: 0 sodium fluoride-pot nitrate [PreviDent 5000 Sensitive] 1.1-5 % paste 1 applic Dental DAILY RF: 0 atorvastatin [Lipitor] 10 mg tablet 10 mg PO BEDTIME RF: 0 acyclovir 400 MG tablet 400 mg PO TID PRN (Reason: Cold Sores) RF: 0 Referrals: Teresa Lawrence DO [Primary Care Provider] -
[2018-05-12 10:59] VITALS: BP 124/65; PULSE 58; RESP 16; O2SAT 98
--- NOTE | 2018-05-12 12:07 | DI.CT.S_ITS ---
PROCEDURE: CT KIDNEY URETER BLADDER (KUB) INDICATIONS: RIGHT flank pain TECHNIQUE: Noncontrast 5 mm thick sections acquired from the diaphragms to the symphysis. 5 mm thick coronal and sagittal reformats were then performed. For radiation dose reduction, the following was used: automated exposure control, adjustment of mA and/or kV according to patient size. COMPARISON: [facility], , US ABDOMEN COMPLETE, 05/12/2018, 11:03. FINDINGS: Image quality: Limited visualization of the bladder and lower pelvis secondary to metallic streak artifact from bilateral hip arthroplasties. Lung bases: Lung bases are clear. Heart size is normal. Urinary system: Both kidneys are normal in size. No kidney stones. No hydronephrosis or perinephric fat stranding. Both ureters appear non-dilated throughout their expected courses. Bladder wall thickness is normal; no calcified bladder stones. Other solid organs: Liver is prominent in size without gross nodularity. Gallbladder is unremarkable. Pancreas is normal in contours. Spleen is normal in size. No adrenal nodules. Peritoneum and bowel: Unenhanced bowel loops demonstrate normal wall thickness and caliber. No free fluid or air. Moderate stool is present throughout the colon. Appendix is normal in size. Nodes and vessels: No retroperitoneal or mesenteric adenopathy by size criteria. Aorta and inferior vena cava are normal in caliber. Paraesophageal varices are present. In addition, right tiesha-abdomen varices are present. Abdominal wall: No ventral hernias. Pelvis: No free pelvic fluid. No inguinal hernias or adenopathy. Bones: No suspicious bony lesions. No vertebral body compression fractures. IMPRESSION: 1. No nephroureterolithiasis. It is noted that the distal aspects of the ureters are obscured secondary to artifact as above. No hydronephrosis. 2. Moderate stool without obstruction. 3. Mild hepatomegaly with areas of varices suggesting development of potential portal venous hypertension. Dictated by: Imani Pretty M.D. on 05/12/2018 at 12:22 Approved by: Imani Pretty M.D. on 05/12/2018 at 12:28
[2018-05-12 13:07] VITALS: BP 102/59; PULSE 60; RESP 14; TEMP 36.4; O2SAT 98
== END 2018-05-12 13:30 | disposition home or self-care (01) ==
PROVIDERS: Emergency Provider Emergency Medicine; PCP Family Medicine
DX: R10.9 Unspecified abdominal pain (principal)
CPT/HCPCS: 36591; 74176; 76700; 80053; 81003; 83690; 85025; 85610; 85730; 93005; 99282; 99285

== ENCOUNTER → 2018-08-11 11:19 | Outpatient (CLI) | payer MEDICARE, BC, SELFPAY | PROVIDERS: PCP Family Medicine; Visit Provider Physician Assistant | DX: N89.8 Other specified noninflammatory disorders of vagina (principal) | CPT/HCPCS: 87210 ==

== ENCOUNTER → 2018-09-10 10:36 | Outpatient (CLI) | payer MEDICARE, BC, SELFPAY ==
[2018-09-10 12:22] LABS: Alanine Aminotransferase 28 IU/L (9-52); Albumin 4.3 g/dL (3.5-5.0); Albumin Globulin Ratio 1.4 (1.0-2.8); Alkaline Phosphatase 65 U/L (38-126); Aspartate Aminotransferase 31 IU/L (14-36); BUN Creatinine Ratio 18.9 (6-22); Bilirubin Total 0.6 mg/dL (0.2-1.3); Blood Urea Nitrogen 17 mg/dL (7-17); Calcium 10.4 mg/dL (8.4-10.2); Carbon Dioxide 26 mmol/L (22-32); Chloride 105 mmol/L (98-107); Cholesterol 136 mg/dL (140-199); Estimated Glomerular Filt Rate > 60.0 mL/min (>60); Glucose 92 mg/dL (80-110); HDL Cholesterol 56 mg/dL (40-60); HEMOLYSIS < 15 (0-50); LDL Cholesterol Calculated 69 mg/dL (<100); Potassium 4.1 mmol/L (3.4-5.1); Sodium 139 mmol/L (137-145); Total Protein 7.3 g/dL (6.3-8.2); Triglycerides 57 mg/dL (35-150)
== END ==
PROVIDERS: PCP Family Medicine; Visit Provider Family Medicine
DX: E78.5 Hyperlipidemia, unspecified (principal)
CPT/HCPCS: 36415; 80053; 80061

== ENCOUNTER → 2018-09-17 16:48 | Outpatient (CLI) | payer MEDICARE, BC, SELFPAY ==
[2018-09-19 18:15] LABS: Fecal Immunochemical Test NOT DETECTED (NOT DETECTED)
== END ==
PROVIDERS: PCP Family Medicine; Visit Provider Family Medicine
DX: Z12.11 Encounter for screening for malignant neoplasm of colon (principal)
CPT/HCPCS: 82274

== ENCOUNTER 2019-01-21 02:16 | Emergency (ER) | payer MEDICARE, BC, SELFPAY ==
[2019-01-21 02:26] VITALS: BP 165/74; PULSE 78; RESP 11; TEMP 36.9; O2SAT 98; BMI 21.1
--- NOTE | 2019-01-21 02:40 | ED_ITS ---
HPI - Abdominal Pain General Chief Complaint: Abdominal Pain Stated Complaint: vomiting since yesterday, stomach cramps Time Seen by Provider: 01/21/19 02:30 Source: patient Mode of arrival: ambulatory Limitations: no limitations History of Present Illness HPI narrative: 73-year-old female here for evaluation of multiple episodes of vomiting and upper abdominal pain. Patient states that it started last evening. She has had multiple episodes since then. No diarrhea. No urinary symptoms. She has had diverticulitis in the past requiring a bowel obstruction and a colostomy with takedown and then a subsequent incisional hernia requiring a mesh repair. She was concerned that she has food poisoning. Related Data Home Medications Medication Instructions Recorded Confirmed risedronate 35 mg PO QWEEK #0 09/03/16 12/15/18 sodium fluoride-pot nitrate 1 applic DENTAL DAILY 12/02/17 12/15/18 [PreviDent 5000 Sensitive] calcium citrate 250 mg PO DAILY 05/12/18 12/15/18 cholecalciferol (vitamin D3) 1,000 unit PO DAILY 05/12/18 12/15/18 [Vitamin D3] Previous Rx's Medication Instructions Recorded alprazolam 0.5 mg tablet 0.5 mg PO DAILY PRN #30 tab 08/08/18 conjugated estrogens 0.625 mg/gram See Rx Instructions VAGINAL DAILY 09/12/18 vaginal cream #30 gram acyclovir 400 mg tablet 400 mg PO TID PRN #30 tab 09/15/18 warfarin 10 mg tablet 10 mg PO QPM #90 tab 10/28/18 atorvastatin 10 mg tablet 10 mg PO BEDTIME #90 tab 11/24/18 metoprolol tartrate 25 mg tablet 25 mg PO BID #180 tab 12/08/18 ondansetron 4 mg PO Q6H PRN #14 tab 01/21/19 Allergies Allergy/AdvReac Type Severity Reaction Status Date / Time No Known Drug Allergies Allergy Verified 01/21/19 02:42 Review of Systems Constitutional Denies fever(s) Cardiovascular Denies chest pain and Denies dyspnea Respiratory Denies dyspnea Gastrointestinal Gastrointestinal: Reports abdominal pain, Denies cramping, Reports nausea and Reports vomiting Musculoskeletal Denies myalgias and Denies arthralgias Integumentary/Breasts Denies rash Hematologic/Lymphatic Denies easy bleeding and Denies easy bruising [facility] Medical History Anxiety (Chronic 1970) Anxiety (Chronic Unknown) Atrial fibrillation (Chronic 2004) Cataracts, bilateral (Chronic Unknown) Diverticular disease (Chronic 2009) Factor V Leiden (Chronic Unknown) Herpes (Chronic 2002) Hyperlipemia (Chronic Unknown) Osteoarthritis (Chronic 2001) Osteopenia (Chronic Unknown) Osteoporosis (Chronic Unknown) Chickenpox (Resolved ~1949) Deep vein thrombosis (Resolved 2001) Fractures (Resolved 2006) Measles (Resolved ~1954) Mumps (Resolved ~1954) Social History Smoking Status: Never smoker Exam Initial Vital Signs Initial Vital Signs: Vital Signs Temperature 98.4 F 01/21/19 02:26 Pulse Rate 78 01/21/19 02:26 Respiratory Rate 11 L 01/21/19 02:26 Blood Pressure 165/74 H 01/21/19 02:26 Pulse Oximetry 98 01/21/19 02:26 Const General: cooperative, healthy appearing, comfortable, well developed, well groomed and No acute distress Orientation: alert, awake and oriented x3 HENMT Head: normal to inspection and normocephalic Resp Effort & Inspection: normal respiratory effort Auscultation: clear to auscultation bilaterally Cardio Rate: regular rate Rhythm: regular rhythm GI Inspection: non-distended Palpation: soft, No firm and tender (Upper abdomen tenderness) Skin Lesions: no lesions Rashes: no rashes Neuro General: alert, awake and oriented x3 Extrem General: normal to inspection and capillary refill normal Psych Appearance: grossly normal and well kempt Course Orders Ordered: ED Orders 01/21/19 02:30 Complete Blood Count AUTO DIFF Stat Comprehensive Metabolic Panel Stat Lipase Stat Partial Thromboplastin Time Stat Prothrombin Time INR Stat 01/21/19 02:36 EKG-12 Lead Stat 01/21/19 03:03 XR abdomen 1V Stat Discontinued Medications Sodium Chloride (Normal Saline 0.9%) 1,000 mls @ 1,000 mls/hr IV BOLUS ONE Stop: 01/21/19 04:02 Last Admin: 01/21/19 03:31 Dose: 1,000 mls/hr Ondansetron HCl (Zofran) 4 mg IV NOW ONE Stop: 01/21/19 02:37 Last Admin: 01/21/19 02:43 Dose: 4 mg Vital Signs - 8 hr 01/21/19 02:26 01/21/19 04:19 Temperature 98.4 F Pulse Rate 78 67 Respiratory Rate 11 L 16 Blood Pressure 165/74 H Blood Pressure [Left Wrist] 117/73 Pulse Oximetry 98 98 MDM - Abdominal Pain Lab Data Attestation: I reviewed the patient's lab results. Result diagrams: 01/21/19 02:30 01/21/19 02:30 Lab Results 01/21/19 01/21/19 01/21/19 Range/Units 02:30 02:30 02:30 WBC 8.9 (4.5-11.0) X10^3/uL RBC 4.46 (4.0-5.2) X10^6/uL Hgb 13.4 (12.0-16.0) g/dL Hct 39.8 (36-46) % MCV 89.4 (80-100) fL MCH 30.1 (26-34) PG MCHC 33.7 (30-36) % RDW 14.2 (11.6-14.8) % Plt Count 220 (150-400) X10^3/uL Neut % (Auto) 84.3 H (50-75) % Lymph % (Auto) 12.1 L (25-40) % [place] % (Auto) 3.2 (3-14) % Eos % (Auto) 0.1 L (2-4) % Baso % (Auto) 0.3 (0-2) % Neut # (Auto) 7500 H (7065-6065) /uL Lymph # (Auto) 1100 (7134-8584) /uL [place] # (Auto) 300 (0-900) /uL Eos # (Auto) 0 (0-450) /uL Baso # (Auto) 0 (0-100) /uL PT 29.4 H (10.1-12.7) SECONDS INR 2.5 H (0.9-1.3) APTT 43 H (26.4-36.2) SECONDS Sodium 142 (137-145) mmol/L Potassium 3.8 (3.4-5.1) mmol/L Chloride 107 (98-107) mmol/L Carbon Dioxide 24 (22-32) mmol/L BUN 19 H (7-17) mg/dL Creatinine 0.70 (0.52-1.04) mg/dL Estimated GFR > 60.0 (>60) mL/min BUN/Creatinine Ratio 27.1 H (6-22) Glucose 135 H (80-110) mg/dL Calcium 9.8 (8.4-10.2) mg/dL Total Bilirubin 0.5 (0.2-1.3) mg/dL AST 34 (14-36) IU/L ALT 19 (9-52) IU/L Alkaline Phosphatase 81 (38-126) U/L Total Protein 7.6 (6.3-8.2) g/dL Albumin 4.5 (3.5-5.0) g/dL Globulin 3.1 (1.7-4.1) g/dL Albumin/Globulin Ratio 1.5 (1.0-2.8) Lipase 76 (23-300) U/L Imaging Data Abdominal x-ray: Attestation: I personally reviewed and interpreted this imaging study as follows: My impression: No acute pathology ECG Data Attestation: I personally reviewed and interpreted this ECG as follows: Prior ECG tracings: not available for review Interpretation: Sinus rhythm Ventricular rate is 72 Normal axis Normal QRS No ST T wave changes MDM Narrative Medical decision making narrative: Patient has benign abdomen. She has a soft abdomen. X-ray shows no signs of acute obstruction. She did tolerate oral intake here in the ER. Labs unremarkable. We did discuss the possibility of acute intra-abdominal issue secondary to her prior symptoms however after this discussion we decided to hold on any CT scan for now. Patient was given return precautions and follow-up instructions. She expressed understanding and agreement with plan. Discharge Plan Departure Patient Disposition: Home Clinical Impression: Nausea and vomiting Qualifiers: Vomiting type: unspecified Vomiting Intractability: non-intractable Qualified Code(s): R11.2 - Nausea with vomiting, unspecified Abdominal pain Qualifiers: Abdominal location: upper abdomen, unspecified Qualified Code(s): R10.10 - Upper abdominal pain, unspecified Instructions: DI for Abdominal Pain-Adult, Nausea and Vomiting-Adult Activity Restrictions/Additional Instructions: Use the nausea medication as needed. Would not be unexpected if you develop so me diarrhea over the next day or so. If this happens be sure to increase your fluid intake. Contact her primary provider for follow-up. Return to the emergency department for any new or worsening symptoms Prescriptions: New ondansetron 4 mg tablet,disintegrating 4 mg PO Q6H PRN (Reason: nausea and vomiting) Qty: 14 RF: 0 No Action acyclovir 400 mg tablet 400 mg PO TID PRN (Reason: Cold Sores) Qty: 30 RF: 1 risedronate 35 MG tablet,delayed release (DR/EC) 35 mg PO QWEEK Qty: 0 RF: 0 alprazolam 0.5 mg tablet 0.5 mg PO DAILY PRN (Reason: Anxiety) Qty: 30 RF: 0 warfarin [Coumadin] 10 mg tablet 10 mg PO QPM Qty: 90 RF: 1 atorvastatin [Lipitor] 10 mg tablet 10 mg PO BEDTIME Qty: 90 RF: 0 metoprolol tartrate 25 mg tablet 25 mg PO BID Qty: 180 RF: 1 conjugated estrogens 0.625 mg/gram cream See Rx Instructions Vaginal DAILY Qty: 30 RF: 3 calcium citrate 250 mg calcium Tablet 250 mg PO DAILY RF: 0 cholecalciferol (vitamin D3) [Vitamin D3] 1,000 unit Tablet 1,000 unit PO DAILY RF: 0 sodium fluoride-pot nitrate [PreviDent 5000 Sensitive] 1.1-5 % paste 1 applic Dental DAILY RF: 0 Referrals: Teresa Lawrence DO [Primary Care Provider] -
[2019-01-21] MEDS: ONDANSETRON 4 MG/2 ML INJ IV (02:43)
[2019-01-21 02:48] LABS: Add Manual Diff / Slide Review NO; Basophils Absolute Auto 0 /uL (0-100); Basophils Percent Auto 0.3 % (0-2); Eosinophils Absolute Auto 0 /uL (0-450); Eosinophils Percent Auto 0.1 % (2-4); Hematocrit 39.8 % (36-46); Hemoglobin 13.4 g/dL (12.0-16.0); INR 2.5 (0.9-1.3); Lymphocytes Absolute Auto 1100 /uL (1100-4500); Lymphocytes Percent Auto 12.1 % (25-40); Mean Corpuscular HGB Conc 33.7 % (30-36); Mean Corpuscular Hemoglobin 30.1 PG (26-34); Mean Corpuscular Volume 89.4 fL (80-100); Monocytes Absolute Auto 300 /uL (0-900); Monocytes Percent Auto 3.2 % (3-14); Neutrophils Absolute Auto 7500 /uL (1500-7000); Neutrophils Percent Auto 84.3 % (50-75); Platelet Count 220 X10^3/uL (150-400); Prothrombin Time 29.4 SECONDS (10.1-12.7); Red Blood Cell Count 4.46 X10^6/uL (4.0-5.2); Red Cell Distribution Width 14.2 % (11.6-14.8); White Blood Cell Count 8.9 X10^3/uL (4.5-11.0)
[2019-01-21 02:50] LABS: PTT Partial Thromboplastin Tim 43 SECONDS (26.4-36.2)
[2019-01-21 02:51] LABS: Alanine Aminotransferase 19 IU/L (9-52); Albumin 4.5 g/dL (3.5-5.0); Albumin Globulin Ratio 1.5 (1.0-2.8); Alkaline Phosphatase 81 U/L (38-126); Aspartate Aminotransferase 34 IU/L (14-36); BUN Creatinine Ratio 27.1 (6-22); Bilirubin Total 0.5 mg/dL (0.2-1.3); Blood Urea Nitrogen 19 mg/dL (7-17); Calcium 9.8 mg/dL (8.4-10.2); Carbon Dioxide 24 mmol/L (22-32); Chloride 107 mmol/L (98-107); Estimated Glomerular Filt Rate > 60.0 mL/min (>60); Globulin 3.1 g/dL (1.7-4.1); Glucose 135 mg/dL (80-110); HEMOLYSIS < 15 (0-50); Lipase 76 U/L (23-300); Potassium 3.8 mmol/L (3.4-5.1); Sodium 142 mmol/L (137-145); Total Protein 7.6 g/dL (6.3-8.2)
--- NOTE | 2019-01-21 03:03 | DI.RAD.S_ITS ---
PROCEDURE: XR ABDOMEN 1V INDICATIONS: Abdominal pain and vomiting TECHNIQUE: One view of the abdomen acquired. COMPARISON: None. FINDINGS: Surgical changes and devices: Postoperative changes related to bilateral hip arthroplasties are present. Bowel: Large amount of residual stool is identified within the proximal colon. No air-filled distended small bowel loops are identified. No definite pneumoperitoneum is appreciated. Soft tissues: No suspicious abdominal calcifications. Visualized solid organ contours appear normal in size. Bones: No suspicious bony lesions. Mild to moderate degenerative changes of the lower lumbar spine and pubis symphysis are not adequately evaluated. IMPRESSION: 1. No evidence of a bowel obstruction. 2. Possible colonic constipation. Note: The preliminary ED physician interpretation and the final report are concordant. Dictated by: Rick Beck M.D. on 01/21/2019 at 8:38 Approved by: Rick Beck M.D. on 01/21/2019 at 8:39
[2019-01-21] MEDS: SODIUM CHLORIDE 0.9% 1,000 ML 1000 ML IV (03:31)
[2019-01-21 04:19] VITALS: BP 117/73; PULSE 67; RESP 16; O2SAT 98
== END 2019-01-21 04:27 | disposition home or self-care (01) ==
PROVIDERS: Emergency Provider Emergency Medicine; PCP Family Medicine
DX: R11.2 Nausea with vomiting, unspecified (principal); R10.10 Upper abdominal pain, unspecified
CPT/HCPCS: 36591; 74018; 80053; 83690; 85025; 85610; 85730; 93005; 96361; 96374; 99283; 99285; J2405

== ENCOUNTER → 2019-02-27 07:45 | Outpatient (CLI) | payer MEDICARE, BC, SELFPAY ==
--- NOTE | 2019-02-27 | DI.MG.S_ITS ---
BILATERAL DIGITAL SCREENING MAMMOGRAM 3D/2D WITH CAD: 02/27/2019 CLINICAL: Routine screening. Family history of breast cancer. Comparison is made to exams dated: 02/26/2018 mammogram, 02/20/2017 mammogram, and 02/20/2016 mammogram - [facility]. The tissue of both breasts is heterogeneously dense. This may lower the sensitivity of mammography. Current study was also evaluated with a Computer Aided Detection (CAD) system. There is an irregular asymmetry in the left breast middle depth superior region seen on the mediolateral oblique view only. There is possible architectural distortion associated with the asymmetry. No other significant masses, calcifications, or other findings are seen in either breast. IMPRESSION: INCOMPLETE: NEEDS ADDITIONAL IMAGING EVALUATION The irregular asymmetry in the left breast middle depth superior region is indeterminate. Additional views with possible ultrasound are recommended. This exam was interpreted at Station ID: [id number]. NOTE: For mammograms, a report in lay terms will be sent to the patient. Approximately 15% of breast malignancies will not be visualized mammographically. In the management of a palpable breast mass, a negative mammogram must not discourage biopsy of a clinically suspicious lesion. Electronically Signed By: Clay Medina M.D. ecl/:02/27/2019 13:31:53 letter sent: Additional Imaging Needed ACR BI-RADS Category 0: Incomplete 3340F
[2019-02-27 09:51] LABS: Alanine Aminotransferase 15 IU/L (9-52); Albumin 4.5 g/dL (3.5-5.0); Albumin Globulin Ratio 1.7 (1.0-2.8); Alkaline Phosphatase 66 U/L (38-126); Aspartate Aminotransferase 37 IU/L (14-36); BUN Creatinine Ratio 28.6 (6-22); Bilirubin Total 0.8 mg/dL (0.2-1.3); Blood Urea Nitrogen 20 mg/dL (7-17); Calcium 9.4 mg/dL (8.4-10.2); Carbon Dioxide 28 mmol/L (22-32); Chloride 104 mmol/L (98-107); Cholesterol 166 mg/dL (140-199); Estimated Glomerular Filt Rate > 60.0 mL/min (>60); Globulin 2.7 g/dL (1.7-4.1); Glucose 92 mg/dL (80-110); HDL Cholesterol 74 mg/dL (40-60); HEMOLYSIS < 15 (0-50); LDL Cholesterol Calculated 79 mg/dL (<100); Potassium 4.3 mmol/L (3.4-5.1); Sodium 140 mmol/L (137-145); Total Protein 7.2 g/dL (6.3-8.2); Triglycerides 63 mg/dL (35-150)
[2019-02-27 10:21] LABS: Thyroid Stimulating Hormone 2.14 uIU/mL (0.47-4.68)
== END ==
PROVIDERS: PCP Family Medicine; Visit Provider Family Medicine
DX: Z12.31 Encounter for screening mammogram for malignant neoplasm of breast (principal); Z80.3 Family history of malignant neoplasm of breast; I10 Essential (primary) hypertension; E78.5 Hyperlipidemia, unspecified
CPT/HCPCS: 36415; 77063; 77067; 80053; 80061; 84443

== ENCOUNTER → 2019-03-20 09:57 | Outpatient (CLI) | payer MEDICARE, BC, SELFPAY ==
--- NOTE | 2019-03-20 09:58 | DI.MG.S_ITS ---
UNILATERAL LEFT DIGITAL DIAGNOSTIC MAMMOGRAM 3D/2D WITH ADDITIONAL VIEWS: 03/20/2019 CLINICAL: Additional evaluation requested from prior study. Comparison is made to exams dated: 02/27/2019 mammogram, 02/26/2018 mammogram, and 02/20/2017 mammogram - [facility]. The tissue of left breast is heterogeneously dense. This may lower the sensitivity of mammography. The asymmetry in the left breast middle depth superior region seen on the mediolateral oblique view only is not seen in additional views. No other significant masses or calcifications are seen in the breast. IMPRESSION: There is no mammographic evidence of malignancy. A 1 year screening mammogram is recommended. This exam was interpreted at Station ID: [id number]. NOTE: For mammograms, a report in lay terms will be sent to the patient. Approximately 15% of breast malignancies will not be visualized mammographically. In the management of a palpable breast mass, a negative mammogram must not discourage biopsy of a clinically suspicious lesion. Electronically Signed By: Nikki mayes/:03/27/2019 13:03:26 Entry: - 03/27/2019 13:03:26 letter sent: Normal Exam ACR BI-RADS Category 2: Benign Finding(s) 3342F
== END ==
PROVIDERS: PCP Family Medicine; Visit Provider Family Medicine
DX: R92.8 Other abnormal and inconclusive findings on diagnostic imaging of breast (principal)
CPT/HCPCS: 77065; G0279

== ENCOUNTER → 2019-09-08 09:38 | Outpatient (CLI) | payer MEDICARE, BC, SELFPAY ==
[2019-09-08 10:08] LABS: Add Manual Diff / Slide Review NO; Basophils Absolute Auto 0 /uL (0-100); Basophils Percent Auto 0.4 % (0-2); Eosinophils Absolute Auto 100 /uL (0-450); Eosinophils Percent Auto 1.2 % (2-4); Hematocrit 39.1 % (36-46); Hemoglobin 13.2 g/dL (12.0-16.0); Lymphocytes Absolute Auto 1600 /uL (1100-4500); Lymphocytes Percent Auto 27.8 % (25-40); Mean Corpuscular HGB Conc 33.7 % (30-36); Mean Corpuscular Hemoglobin 30.5 PG (26-34); Mean Corpuscular Volume 90.6 fL (80-100); Monocytes Absolute Auto 500 /uL (0-900); Neutrophils Absolute Auto 3400 /uL (1500-7000); Neutrophils Percent Auto 61.6 % (50-75); Platelet Count 238 X10^3/uL (150-400); Red Blood Cell Count 4.32 X10^6/uL (4.0-5.2); Red Cell Distribution Width 14.1 % (11.6-14.8); White Blood Cell Count 5.6 X10^3/uL (4.5-11.0)
[2019-09-08 13:44] LABS: Alanine Aminotransferase 15 IU/L (<35); Albumin 4.5 g/dL (3.5-5.0); Albumin Globulin Ratio 1.6 (1.0-2.8); Alkaline Phosphatase 65 U/L (38-126); Aspartate Aminotransferase 32 IU/L (14-36); Bilirubin Total 0.6 mg/dL (0.2-1.3); Blood Urea Nitrogen 18 mg/dL (7-17); Calcium 9.5 mg/dL (8.4-10.2); Carbon Dioxide 25 mmol/L (22-32); Chloride 106 mmol/L (98-107); Cholesterol 159 mg/dL (140-199); Estimated Glomerular Filt Rate > 60.0 mL/min (>60); Globulin 2.8 g/dL (1.7-4.1); Glucose 95 mg/dL (80-110); HDL Cholesterol 61 mg/dL (40-60); HEMOLYSIS < 15 (0-50); LDL Cholesterol Calculated 82 mg/dL (<100); Potassium 4.1 mmol/L (3.4-5.1); Sodium 142 mmol/L (137-145); Total Protein 7.3 g/dL (6.3-8.2); Triglycerides 80 mg/dL (35-150)
== END ==
PROVIDERS: PCP Nurse Practitioner; Referring Provider Family Medicine; Visit Provider Family Medicine
DX: D68.51 Activated protein C resistance (principal); I10 Essential (primary) hypertension; Z90.09 Acquired absence of other part of head and neck; E78.5 Hyperlipidemia, unspecified; R73.9 Hyperglycemia, unspecified
CPT/HCPCS: 36415; 80053; 80061; 85025

== ENCOUNTER → 2020-02-12 10:42 | Outpatient (CLI) | payer MEDICARE, BC, SELFPAY ==
[2020-02-13 08:56] LABS: COVID19 Sendout Not Detected (Not Detect)
== END ==
PROVIDERS: PCP Nurse Practitioner; Visit Provider Physician Assistant
DX: Z11.59 Encounter for screening for other viral diseases (principal)
CPT/HCPCS: 87635

== ENCOUNTER → 2020-02-15 14:48 | Outpatient (CLI) | payer MEDICARE, BC, SELFPAY ==
[2020-02-16 20:04] LABS: COVID19 Sendout Not Detected (Not Detect)
== END ==
PROVIDERS: PCP Nurse Practitioner; Visit Provider Physician Assistant
DX: Z11.59 Encounter for screening for other viral diseases (principal)
CPT/HCPCS: 87635

== ENCOUNTER 2020-02-18 14:00 | Day surgery (SDC) | payer MEDICARE, BC, SELFPAY ==
[2020-02-18] VITALS (8 sets, daily range): BP systolic 104–124; BP diastolic 56–76; PULSE 56–75; RESP 11–16; TEMP 36.1–36.7; O2SAT 95–99; BMI 19.4
[2020-02-18] MEDS: LACTATED RINGERS 1,000 ML 200 ML IV ×2 (15:00→16:00)
--- NOTE | 2020-02-18 15:09 | P.HP_ITS ---
History of Present Illness History of Present Illness Date Patient Seen: 02/18/20 Time Patient Seen: 15:09 [place] [facility] [place]: 74-year-old here for a screening colonoscopy. Her last colonoscopy was 12 years ago which was normal. Surgical history notable for Derik's procedure for complicated diverticulitis she subsequently had her colostomy reversed. No personal or family history of intestinal malignancy. On further history denies any recent gastrointestinal symptoms. No nausea, vomiting, abdominal pain, loss of appetite, unexplained weight loss, change in bowel habits, diarrhea, constipation, melena, hematochezia, or bright red blood per rectum. 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) Measles (Resolved ~1954) Mumps (Resolved ~1954) Osteoarthritis (Chronic 2001) Osteopenia (Chronic Unknown) Osteoporosis (Chronic Unknown) Other detention (current) drug therapy (Acute) Tricompartment osteoarthritis of right knee (Acute) Surgical History History of hip replacement History of hip replacement Status post colostomy Status post hernia repair Status post hernia repair Family & Social History Family History Father Hypertension Mental health problem Mother Hypertension Hyperlipidemia Social History: household members none Tobacco & Substance use: Smoking Status Never smoker alcohol intake former alcohol intake frequency holiday/special occasion Substance Use Type does not use Meds Home Medications and Allergies Home Medications Medication Instructions Recorded Confirmed Type risedronate 35 mg PO QWEEK #0 09/03/16 02/18/20 History sodium fluoride-pot nitrate 1 applic DENTAL DAILY 12/02/17 02/18/20 History [PreviDent 5000 Sensitive] calcium citrate 250 mg PO DAILY 05/12/18 02/18/20 History cholecalciferol (vitamin D3) 1,000 unit PO DAILY 05/12/18 02/18/20 History [Vitamin D3] ondansetron 4 mg PO Q6H PRN #14 tab 01/21/19 02/18/20 Rx acyclovir 400 mg tablet 400 mg PO TID PRN #30 tab 06/26/19 02/18/20 Rx alprazolam 0.5 mg tablet 0.5 mg PO DAILY PRN #30 tab 08/01/19 02/18/20 Rx warfarin 10 mg tablet 10 mg PO QPM #90 tab 10/28/19 02/18/20 Rx atorvastatin 10 mg tablet 10 mg PO BEDTIME #90 tab 11/25/19 02/18/20 Rx metoprolol tartrate 25 mg tablet 25 mg PO BID #180 tab 12/10/19 02/18/20 Rx Allergies Allergy/AdvReac Type Severity Reaction Status Date / Time No Known Drug Allergies Allergy Verified 02/15/20 15:52 Review of Systems Review of Systems Narrative: A 10 point review of systems is negative except as noted in the HPI Exam Vital Signs (past 8 hours): - 02/18/20 14:45 02/18/20 14:50 Temperature 98.1 F 98.1 F Pulse Rate 75 75 Respiratory Rate 16 16 Blood Pressure 112/76 112/76 Pulse Oximetry 97 97 Oxygen Delivery Method Room Air Narrative Exam Narrative: General-no acute distress, well nourished HEENT-moist mucous membranes, no scleral icterus Neck-supple, no lymphadenopathy Chest- non labored respirations, clear to auscultation bilaterally Cardiac-regular rate no peripheral edema Abdomen-soft, nontender, non distended Extremities-warm, well perfused Neurological-alert and oriented, no focal deficits Assessment & Plan Assessment and plan (1) Screening for colon cancer: Status: Acute Assessment & Plan narrative: The patient requires colorectal screening and colonoscopy is recommended. Technical details were discussed. Risks, benefits, alternatives explained. Risks including but not limited to myocardial infarction, aspiration, bleeding, pain, missed lesion, incomplete examination, need for further radiographic studies, colonic perforation, and need for major abdominal surgery were discussed. All questions were answered to their satisfaction, and they are in agreement with this plan.
[2020-02-18] MEDS: fentaNYL 250 MCG/5 ML INJ IV (15:15)
[2020-02-18] MEDS: MIDAZOLAM 5 MG/5 ML VIAL IV (15:15)
--- NOTE | 2020-02-18 15:39 | PM.OP.ENDO ---
Operative Date/Time/Diagnoses Date of procedure: 02/18/20 Time of procedure: 15:39 Pre-op diagnosis: Screening colonoscopy Post-op diagnosis: same Procedure & Clinicians Study performed: Colonoscopy Same procedure as scheduled: Yes Indications: 74-year-old woman last colonoscopy 12 years ago presents for routine screening. Surgeon: Vadim Huynh Procedure Notes SCOAP/Timeout: Performed Procedure in detail: Patient placed in left lateral recumbent position. Time out was performed. Procedural sedation was administered with Versed and Fentanyl. Examination began with a thorough inspection of the perianal area there was no evidence of fissures, fistulae, external hemorrhoids or cutaneous malignancy. The colonoscopy scope was then placed into the rectum the the lumen was insufflated with air. The scope was carefully advanced forward. Ultimately the cecum was intubated and confirmed by identification of the ileocecal valve and the confluence of the taenia. The scope was then slowly withdrawn examining colon thoroughly in all directions. In the rectum the rectal columns were identified and retroflexion of the scope was performed for inspection of the distal rectum and anal canal. The colonoscopy was notable for the followin. Quality of the preparation-good 2. No masses or polyps 3. Diverticulosis of descending colon, surgical absence of sigmoid colon Scope withdrawal time: 7 Sedation minutes: 18 Findings: diverticulosis Specimen(s): none sent Complications: none Impression: Diverticulosis Post-procedure Recommendations: Colonscopy in 10 years Disposition: same day surgery
--- NOTE | 2020-02-18 16:15 | SUR.PHASEII ---
Called patient's family and spoke with Francine, who will be picking patient up post procedure. Patient in Phase II recovery and stable. Drinking gingerale without difficulty. Denies pain or nausea.
--- NOTE | 2020-02-18 16:36 | SUR.PHASEII ---
Provided patient with scrub pants and clean panties due to an episode of incontinence prior to procedure. Patient eating crackers and sipping on gingerale without difficulty. VSS. Awaiting family.
== END 2020-02-18 16:55 | disposition home or self-care (01) ==
PROVIDERS: PCP Nurse Practitioner; Referring Provider Surgery; Visit Provider Surgery
PROC: 0DJD8ZZ Inspection of Lower Intestinal Tract, Via Natural or Artificial Opening Endoscopic (ICD-10-PCS; CPT 45378; principal; 2020-02-18 15:15)
DX: Z12.11 Encounter for screening for malignant neoplasm of colon (principal); K57.30 Diverticulosis of large intestine without perforation or abscess without bleeding; F41.9 Anxiety disorder, unspecified; D68.51 Activated protein C resistance; Z79.01 Long term (current) use of anticoagulants; I48.20 Chronic atrial fibrillation, unspecified
CPT/HCPCS: G0121; 99152; J2250; J3010

== ENCOUNTER → 2020-04-01 09:12 | Outpatient (CLI) | payer MEDICARE, BC, SELFPAY ==
--- NOTE | 2020-04-01 09:16 | DI.MG.S_ITS ---
BILATERAL DIGITAL SCREENING MAMMOGRAM 3D/2D WITH CAD: 04/01/2020 CLINICAL: Routine screening. Family history of breast cancer. Comparison is made to exams dated: 02/27/2019 mammogram, 02/26/2018 mammogram, and 02/20/2017 mammogram - [facility]. There are scattered fibroglandular elements in both breasts. Current study was also evaluated with a Computer Aided Detection (CAD) system. No significant masses, calcifications, or other findings are seen in either breast. There has been no significant interval change. IMPRESSION: NEGATIVE There is no mammographic evidence of malignancy. A 1 year screening mammogram is recommended. This exam was interpreted at Station ID: [id number]. NOTE: For mammograms, a report in lay terms will be sent to the patient. Approximately 15% of breast malignancies will not be visualized mammographically. In the management of a palpable breast mass, a negative mammogram must not discourage biopsy of a clinically suspicious lesion. Electronically Signed By: Yuan smallwood/karen:04/01/2020 12:38:17 letter sent: Normal Exam ACR BI-RADS Category 1: Negative 3341F
[2020-04-01 10:03] LABS: Alanine Aminotransferase 17 IU/L (<35); Albumin 4.2 g/dL (3.5-5.0); Albumin Globulin Ratio 1.6 (1.0-2.8); Alkaline Phosphatase 64 U/L (38-126); Aspartate Aminotransferase 33 IU/L (14-36); BUN Creatinine Ratio 22.1 (6-22); Bilirubin Total 0.6 mg/dL (0.2-1.3); Blood Urea Nitrogen 17 mg/dL (7-17); Calcium 8.7 mg/dL (8.4-10.2); Carbon Dioxide 27 mmol/L (22-32); Chloride 106 mmol/L (98-107); Cholesterol 148 mg/dL (140-199); Estimated Glomerular Filt Rate > 60.0 mL/min (>60); Globulin 2.7 g/dL (1.7-4.1); Glucose 94 mg/dL (80-110); HDL Cholesterol 62 mg/dL (40-60); HEMOLYSIS < 15 (0-50); LDL Cholesterol Calculated 74 mg/dL (<100); Potassium 4.1 mmol/L (3.4-5.1); Sodium 138 mmol/L (137-145); Total Protein 6.9 g/dL (6.3-8.2); Triglycerides 58 mg/dL (35-150)
[2020-04-01 10:30] LABS: Free T3, Triiodothyronine Free 2.89 pg/mL (2.77-5.27); Free T4, Direct Thyroxine 1.23 ng/dL (0.78-2.19)
[2020-04-01 10:43] LABS: Thyroid Stimulating Hormone 2.12 uIU/mL (0.47-4.68)
== END ==
PROVIDERS: PCP Nurse Practitioner; Referring Provider Nurse Practitioner; Visit Provider Nurse Practitioner
DX: Z12.31 Encounter for screening mammogram for malignant neoplasm of breast (principal); Z80.3 Family history of malignant neoplasm of breast; E78.5 Hyperlipidemia, unspecified; I10 Essential (primary) hypertension; R73.9 Hyperglycemia, unspecified; Z79.899 Other long term (current) drug therapy; Z98.890 Other specified postprocedural states
CPT/HCPCS: 36415; 77063; 77067; 80053; 80061; 84439; 84443; 84481

== ENCOUNTER → 2020-08-19 10:59 | Outpatient (CLI) | payer MEDICARE, BC, SELFPAY ==
[2020-08-19 11:37] LABS: COVID19 -Nasal RAPID Negative (Negative)
== END ==
PROVIDERS: PCP Nurse Practitioner; Visit Provider Surgery
DX: Z20.822 Contact with and (suspected) exposure to COVID-19 (principal)
CPT/HCPCS: 87635; C9803

== ENCOUNTER 2020-08-22 10:14 | Day surgery (SDC) | payer MEDICARE, BC, SELFPAY ==
[2020-08-22] VITALS (7 sets, daily range): BP systolic 93–113; BP diastolic 57–73; PULSE 50–64; RESP 10–17; TEMP 36.3–37.1; O2SAT 93–99; BMI 20.9
[2020-08-22] MEDS: LACTATED RINGERS 1,000 ML 200 ML IV (10:35)
--- NOTE | 2020-08-22 11:38 | PM.PREOP ---
Pre-operative Note Interval Note History & Physical reviewed/Exam performed by Physician: Yes Changes to H&P: No
[2020-08-22] MEDS: MIDAZOLAM 5 MG/5 ML VIAL IV (11:51)
[2020-08-22] MEDS: fentaNYL 250 MCG/5 ML INJ IV (11:51)
[2020-08-22] MEDS: LIDOCAINE 4% SOLN 50 ML 20 ML TOP (11:54)
--- NOTE | 2020-08-22 12:04 | PM.OP.ENDO ---
Operative Date/Time/Diagnoses Date of procedure: 08/22/20 Time of procedure: 12:05 Pre-op diagnosis: dysphagia Post-op diagnosis: same Procedure & Clinicians Study performed: Esophagoduodenoscopy Same procedure as scheduled: Yes Indications: 75-year-old female history of GERD with new esophageal dysphagia Surgeon: Vadim Huynh Procedure Notes Procedure in detail: Patient placed in left lateral decubitus position. Time out was performed. Procedural sedation was administered with Versed and Fentanyl. A bite block was placed. the scope was inserted into the mouth and advanced through the esophagus and into the stomach. The pylorus was intubated and the duodenum was normal to the 2nd portion. The scope was retroflexed within the stomach and there was no hiatal hernia. No ulcers, or gastritis. The scope was withdrawn into the esophagus the Z line was seen at 35 cm from the incisions. There was no Zuniga's esophagitis, masses or strictures for observed. Stomach was desufflated and scope removed. Patient tolerated procedure well. Specimen(s): none sent Complications: none Impression: Normal esophagoduodenoscopy Post-procedure Plan for aftercare: Patient may switch to omeprazole 20 mg b.i.d. if Pepcid is not effective in controlling reflux Disposition: same day surgery
--- NOTE | 2020-08-22 12:08 | SUR.PHASEI ---
Received to PACU after EGD with sedation. Airway patent, self maintained. Report received from OLEG Panchal.
[2020-08-22] MEDS: ONDANSETRON 4 MG ODT SL (12:55)
--- NOTE | 2020-08-22 12:56 | SUR.PHASEII ---
pt reports nausea, new orders recv'd from Dr Huynh for ODT zofran 4mg
== END 2020-08-22 13:15 | disposition home or self-care (01) ==
PROVIDERS: PCP Nurse Practitioner; Referring Provider Surgery; Visit Provider Surgery
PROC: 0DJ08ZZ Inspection of Upper Intestinal Tract, Via Natural or Artificial Opening Endoscopic (ICD-10-PCS; CPT 43235; 2020-08-22 11:30)
DX: R13.10 Dysphagia, unspecified (principal); K21.9 Gastro-esophageal reflux disease without esophagitis; Z79.01 Long term (current) use of anticoagulants; I48.91 Unspecified atrial fibrillation; E78.5 Hyperlipidemia, unspecified; D68.51 Activated protein C resistance; Z86.718 Personal history of other venous thrombosis and embolism
CPT/HCPCS: 43235; 85610; J2250; J3010

== ENCOUNTER → 2020-09-27 09:05 | Outpatient (CLI) | payer MEDICARE, BC, SELFPAY ==
[2020-09-27 10:25] LABS: Alanine Aminotransferase 26 IU/L (<35); Albumin 4.1 g/dL (3.5-5.0); Albumin Globulin Ratio 1.6 (1.0-2.8); Alkaline Phosphatase 68 U/L (38-126); Aspartate Aminotransferase 43 IU/L (14-36); BUN Creatinine Ratio 25.9 (6-22); Bilirubin Total 0.3 mg/dL (0.2-1.3); Blood Urea Nitrogen 22 mg/dL (7-17); Calcium 8.8 mg/dL (8.4-10.2); Carbon Dioxide 25 mmol/L (22-32); Chloride 104 mmol/L (98-107); Estimated Glomerular Filt Rate > 60.0 mL/min (>60); Globulin 2.5 g/dL (1.7-4.1); Glucose 98 mg/dL (80-110); HEMOLYSIS < 15 (0-50); Potassium 4.3 mmol/L (3.4-5.1); Sodium 136 mmol/L (137-145); Total Protein 6.6 g/dL (6.3-8.2)
[2020-09-27 11:41] LABS: Free T3, Triiodothyronine Free 2.72 pg/mL (2.77-5.27); Free T4, Direct Thyroxine 1.29 ng/dL (0.78-2.19)
[2020-09-27 11:55] LABS: Thyroid Stimulating Hormone 1.73 uIU/mL (0.47-4.68)
== END ==
PROVIDERS: PCP Nurse Practitioner; Referring Provider Nurse Practitioner; Visit Provider Nurse Practitioner
DX: I10 Essential (primary) hypertension (principal); Z98.890 Other specified postprocedural states
CPT/HCPCS: 36415; 80053; 84439; 84443; 84481

== ENCOUNTER → 2021-01-03 10:25 | Outpatient (CLI) | payer MEDICARE, BC, SELFPAY ==
[2021-01-03 11:40] LABS: Alanine Aminotransferase 18 IU/L (<35); Albumin 4.3 g/dL (3.5-5.0); Albumin Globulin Ratio 1.8 (1.0-2.8); Alkaline Phosphatase 57 U/L (38-126); Aspartate Aminotransferase 37 IU/L (14-36); Bilirubin Total 0.5 mg/dL (0.2-1.3); Bilirubin Unconjugated 0.5 mg/dL (0.0-1.1); Cholesterol 152 mg/dL (140-199); Globulin 2.4 g/dL (1.7-4.1); HDL Cholesterol 60 mg/dL (40-60); HEMOLYSIS < 15 (0-50); LDL Cholesterol Calculated 78 mg/dL (<100); Total Protein 6.7 g/dL (6.3-8.2); Triglycerides 68 mg/dL (35-150)
[2021-01-03 12:31] LABS: Hep C Virus Ab w/Reflex Quant NEGATIVE s/c (NEGATIVE)
[2021-01-04 05:21] LABS: HBsAg Screen Negative (Negative); Hepatitis A Antibody IgM Negative (Negative); Hepatitis B Core Antibody IgM Negative (Negative); Hepatitis C Antibody <0.1 s/co ratio (0.0-0.9)
== END ==
PROVIDERS: PCP Nurse Practitioner; Referring Provider Nurse Practitioner; Visit Provider Nurse Practitioner
DX: R74.8 Abnormal levels of other serum enzymes (principal); E78.5 Hyperlipidemia, unspecified; Z79.899 Other long term (current) drug therapy
CPT/HCPCS: 36415; 80061; 80074; 80076; 86803

== ENCOUNTER → 2021-04-27 09:53 | Outpatient (CLI) | payer MEDICARE, BC, SELFPAY ==
[2021-04-27 12:02] LABS: Add Manual Diff / Slide Review NO; Basophils Absolute Auto 0 /uL (0-100); Basophils Percent Auto 0.6 % (0-2); Eosinophils Absolute Auto 100 /uL (0-450); Eosinophils Percent Auto 1.1 % (2-4); Hematocrit 37.3 % (36-46); Hemoglobin 12.4 g/dL (12.0-16.0); Lymphocytes Absolute Auto 1400 /uL (1100-4500); Lymphocytes Percent Auto 24.1 % (25-40); Mean Corpuscular HGB Conc 33.2 % (30-36); Mean Corpuscular Hemoglobin 29.6 PG (26-34); Mean Corpuscular Volume 89.3 fL (80-100); Monocytes Absolute Auto 500 /uL (0-900); Monocytes Percent Auto 9.1 % (3-14); Neutrophils Absolute Auto 3800 /uL (1500-7000); Neutrophils Percent Auto 65.1 % (50-75); Platelet Count 220 X10^3/uL (150-400); Red Blood Cell Count 4.18 X10^6/uL (4.0-5.2); Red Cell Distribution Width 14.4 % (11.6-14.8); White Blood Cell Count 5.9 X10^3/uL (4.5-11.0)
[2021-04-27 13:19] LABS: Estimated Glomerular Filt Rate > 60.0 mL/min (>60)
[2021-04-28 14:57] LABS: Calcium 9.2 mg/dL (8.7-10.3); Parathyroid Hormone, Intact 53 pg/mL (15-65)
[2021-05-02 13:12] LABS: N-Telopeptide 6.5 nmol BCE/L (6.2-19.0)
== END ==
PROVIDERS: PCP Nurse Practitioner; Referring Provider Internal Medicine Endocrinology, Diabetes & Metabolism; Visit Provider Internal Medicine Endocrinology, Diabetes & Metabolism
DX: M81.0 Age-related osteoporosis without current pathological fracture (principal); Z86.39 Personal history of other endocrine, nutritional and metabolic disease
CPT/HCPCS: 36415; 82310; 82523; 82565; 83970; 85025

== ENCOUNTER → 2021-05-23 13:59 | Outpatient (CLI) | payer MEDICARE, BC, SELFPAY ==
--- NOTE | 2021-05-23 14:01 | DI.MG.S_ITS ---
BILATERAL DIGITAL SCREENING MAMMOGRAM 3D/2D WITH CAD: 05/23/2021 CLINICAL: Routine screening. Family history of breast cancer. Comparison is made to exams dated: 04/01/2020 mammogram, 02/27/2019 mammogram, 02/26/2018 mammogram, and 03/20/2019 mammogram - [facility]. There are scattered fibroglandular elements in both breasts. Current study was also evaluated with a Computer Aided Detection (CAD) system. No significant masses, calcifications, or other findings are seen in either breast. There has been no significant interval change. IMPRESSION: NEGATIVE There is no mammographic evidence of malignancy. A 1 year screening mammogram is recommended. This exam was interpreted at Station ID: [id number]. NOTE: For mammograms, a report in lay terms will be sent to the patient. Approximately 15% of breast malignancies will not be visualized mammographically. In the management of a palpable breast mass, a negative mammogram must not discourage biopsy of a clinically suspicious lesion. Electronically Signed By: Marlon bosch/karen:05/24/2021 08:59:20 letter sent: Normal Exam ACR BI-RADS Category 1: Negative 3341F
== END ==
PROVIDERS: PCP Nurse Practitioner; Referring Provider Nurse Practitioner; Visit Provider Nurse Practitioner
DX: Z12.31 Encounter for screening mammogram for malignant neoplasm of breast (principal); Z80.3 Family history of malignant neoplasm of breast
CPT/HCPCS: 77063; 77067

== ENCOUNTER → 2021-08-01 12:52 | Outpatient (CLI) | payer MEDICARE, BC, SELFPAY ==
[2021-08-01 14:50] LABS: INR 1.8 (0.9-1.3)
== END ==
PROVIDERS: PCP Nurse Practitioner; Referring Provider Nurse Practitioner; Visit Provider Nurse Practitioner
DX: Z79.01 Long term (current) use of anticoagulants (principal)
CPT/HCPCS: 36415; 85610

== ENCOUNTER 2021-10-03 11:16 | Emergency (ER) | payer MEDICARE, BC, SELFPAY ==
[2021-10-03 11:39] VITALS: BP 164/79; PULSE 77; RESP 20; TEMP 36.2; O2SAT 99
[2021-10-03 11:42] VITALS: PULSE 80
--- NOTE | 2021-10-03 11:55 | ED.EXTPRO ---
HPI - Extremity Problem General Chief complaint: Extremity Problem,Nontraumatic Stated complaint: ill and neck pain after booster shot 09/29 Time Seen by Provider: 10/03/21 11:46 Source: patient Mode of arrival: Ambulatory History of Present Illness HPI Narrative: 76-year-old female nonsmoker with history of hyperlipidemia presents with her in the chief complaint of gradually worsening right-sided neck and shoulder pain over the past few days. She states that she denies any injury, fever or chills. She did have her 4th COVID shot and symptoms started the next day. Her pain is significantly worse when she touches the right side of her neck or she moves her head. She denies neurologic symptoms such as blurred vision, trouble speech or extremity numbness, weakness or tingling. She does think she might have slept abnormally on it. She has taken Tylenol at home with minimal to no relief. She denies any difficulties swallowing or trouble with respirations. She has no chest pain or trouble breathing Related Data Home Medications Medication Instructions Recorded Confirmed risedronate 35 mg tablet,delayed 35 mg PO QWEEK #0 09/03/16 06/27/21 release sodium fluoride 1.1 %-potassium 1 applic DENTAL DAILY 12/02/17 06/27/21 nitrate 5 % dental paste calcium citrate 250 mg PO DAILY 05/12/18 06/27/21 cholecalciferol (vitamin D3) 25 1,000 unit PO DAILY 05/12/18 06/27/21 mcg (1,000 unit) tablet (Vitamin D3) warfarin 10 mg tablet 10 mg PO QPM tab 08/21/21 09/21/21 Previous Rx's Medication Instructions Recorded alprazolam 0.5 mg tablet (Xanax) 0.5 mg PO PRN PRN #10 tab 04/20/16 atorvastatin 10 mg tablet (Lipitor) 10 mg PO BEDTIME #90 tab 02/13/21 famotidine 20 mg tablet See Rx Instructions .ROUTE 02/13/21 .COMPLEX #180 tab metoprolol tartrate 25 mg tablet See Rx Instructions .ROUTE 02/13/21 .COMPLEX #180 tab acyclovir 400 mg tablet 400 mg PO TID PRN #30 tab 06/01/21 cyclobenzaprine 10 mg tablet 10 mg PO TID PRN #14 tab 10/03/21 hydrocodone 5 mg-acetaminophen 325 1 tab PO Q4-6H PRN #10 tab 10/03/21 mg tablet methylprednisolone 4 mg tablets in See Rx Instructions .ROUTE 10/03/21 a dose pack (Medrol (Roni)) .COMPLEX #21 ea Allergies Allergy/AdvReac Type Severity Reaction Status Date / Time No Known Drug Allergies Allergy Verified 06/27/21 11:25 Review of Systems Review of Systems Narrative: GENERAL: Denies chills, fatigue, malaise, fever, sweats. HEENT: Denies sinus pain, ear pain, sore throat, difficulty swallowing, dizziness. RESPIRATORY: Denies dyspnea, cough, wheezing, hemoptysis, sputum. CARDIOVASCULAR: Denies chest pain, palpitations, orthopnea, edema, GASTROINTESTINAL: Denies nausea, vomiting, abdominal pain, diarrhea, constipation, melena. : Denies dysuria, frequency, incontinence, hematuria, urinary retention. MUSCULOSKELETAL: See HPI SKIN: Denies rash, skin lesions, or other NEUROLOGIC: Denies weakness, headache, numbness, change in speech, confusion, seizures, incoordination. PSYCHIATRIC: No concerning psychosocial issues. 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 Measles (~195) Mumps (~195) Osteoarthritis (2001) Osteopenia (Unknown) Osteoporosis (Unknown) Other custodial (current) drug therapy Right knee pain Sprain of medial collateral ligament of knee Tricompartment osteoarthritis of right knee Wears glasses Surgical History History of hip replacement History of hip replacement Status post colostomy Status post hernia repair Status post hernia repair Family History Father Hypertension Mental health problem Mother Hypertension Hyperlipidemia Social History household members: none Smoking Status: Never smoker alcohol intake: former Smoking Status: Never smoker alcohol intake frequency: other Substance Use Type: does not use Exam Narrative Exam Narrative: GENERAL: [76] year old patient appears stated age. Well-developed patient, in mild distress. Obviously in pain, holding her head still HEAD: Atraumatic. Normocephalic. EYES: Pupils equal round and reactive. Extraocular motions intact. No scleral icterus. No injection or drainage. ENT: Nose without bleeding, purulent drainage. Throat without erythema, tonsillar hypertrophy or exudate. Airway patent. NECK: Trachea midline. No midline bony tenderness or step-offs. Pain on palpation of right-sided paraspinal musculature in to dorsum of right shoulder. No change with axial load. CARDIOVASCULAR: Regular rate and rhythm without murmurs, gallops, or rubs. RESPIRATORY: Clear to auscultation. Breath sounds equal bilaterally. No wheezes, rales, or rhonchi. GASTROINTESTINAL: Abdomen soft, non-tender, nondistended. EXTREMITIES: No edema or joint tenderness. BACK: Nontender without deformity or crepitance. No flank tenderness. NEURO: AOx3. SKIN: No rash or erythema of visible areas Initial Vital Signs Initial Vital Signs: Vital Signs Temperature 97.1 F L 10/03/21 11:39 Pulse Rate 77 10/03/21 11:39 Respiratory Rate 20 10/03/21 11:39 Blood Pressure 164/79 H 10/03/21 11:39 Pulse Oximetry 99 10/03/21 11:39 Course Orders Ordered: Discontinued Medications Cyclobenzaprine HCl (Cyclobenzaprine 10 Mg Tablet) 10 mg PO NOW ONE Stop: 10/03/21 11:47 Last Admin: 10/03/21 12:13 Dose: 10 mg Documented by: HERNANDEZ Prednisone (Prednisone 20 Mg Tablet) 40 mg PO NOW ONE Stop: 10/03/21 11:47 Last Admin: 10/03/21 12:13 Dose: 40 mg Documented by: HERNANDEZ Vital Signs Vital signs: Vital Signs - 8 hr 10/03/21 11:39 10/03/21 11:42 Temperature 97.1 F L Pulse Rate 77 Pulse Rate [Right Radial] 80 Respiratory Rate 20 Blood Pressure 164/79 H Pulse Oximetry 99 MDM - Extremity (Nontraumatic) MDM Narrative Medical decision making narrative: Patient has a very reassuring history and physical exam. She has a reproducible right-sided neck pain that is worse with palpation and motion. She has no neurologic symptoms, no meningeal signs, no trouble swallowing. We discussed the utility of imaging and labs and agree that that is unlikely to provide relief at this point time. She is unable to take anti-inflammatories but has been given a prescription for steroids, cyclobenzaprine and hydrocodone. Discharge Plan Departure Patient Disposition: Home Clinical Impression: Cervical paraspinal muscle spasm Instructions: DI for Neck Pain Activity Restrictions/Additional Instructions: *You have been diagnosed with [right-sided neck and shoulder pain, as we discussed her history and physical exam are reassuring in this is most consistent with muscle spasm and inflammation. *What to do: *Please continue to take your regular medications as directed. [x ] New medication prescriptions sent to your pharmacy: [[facility] ] [ ] New medication written as a paper prescription [ ] No new medications given *Please follow up with your primary care provider in 2-3 days, call for an appointment. Let them know you were seen in the Emergency Department and that we ask that you be seen in follow up. We will electronically transmit a record of today's note if your PCP is in our system *As we discussed you will likely benefit from a soft cervical collar if you can find one at the pharmacy. *If you do not have a primary care provider please contact the [facility] Resource line at [phone]. They will ask some questions about your medical history and help get you set up with a doctor in the community. *Return to Emergency Department if you should have any new, worsening or concerning symptoms, such as [fever greater than 101 F, shaking chills, worsening pain, persistent vomiting or other bothersome symptoms] You have been prescribed a short course of narcotic medications. These are potentially dangerous and addictive medications that should be used carefully. While on these medications you cannot drive or operate heavy machinery. Additionally, you cannot sign legal documents or perform any duties such as this. 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 Please understand that we cannot provide further refills of narcotics or controlled substances through the ED and your pain management will need to be through your Primary Care Provider Prescriptions: New cyclobenzaprine 10 mg tablet 10 mg PO TID PRN (Reason: muscle spasm) Qty: 14 0RF hydrocodone-acetaminophen 5-325 mg tablet 1 tab PO Q4-6H PRN (Reason: pain) Qty: 10 0RF methylprednisolone [Medrol (Roni)] 4 mg tablets,dose pack See Rx Instructions .ROUTE .COMPLEX Qty: 21 0RF Rx Instructions: orally per package directions No Action risedronate 35 MG tablet,delayed release (DR/EC) 35 mg PO QWEEK Qty: 0 0RF Label Comments: mondays metoprolol tartrate 25 mg tablet See Rx Instructions .ROUTE .COMPLEX Qty: 180 3RF Dose Instruction: TAKE ONE TABLET BY MOUTH TWICE DAILY FOR BLOOD PRESSURE Rx Instructions: TAKE ONE TABLET BY MOUTH TWICE DAILY FOR BLOOD PRESSURE atorvastatin [Lipitor] 10 mg tablet 10 mg PO BEDTIME Qty: 90 3RF famotidine 20 mg tablet See Rx Instructions .ROUTE .COMPLEX Qty: 180 3RF Dose Instruction: TAKE ONE TABLET BY MOUTH TWICE DAILY for GERD Rx Instructions: TAKE ONE TABLET BY MOUTH TWICE DAILY FOR GERD acyclovir 400 mg tablet 400 mg PO TID PRN (Reason: Cold Sores) Qty: 30 1RF alprazolam [Xanax] 0.5 mg tablet 0.5 mg PO PRN PRN (Reason: flight and dental anxiety) Qty: 10 0RF warfarin 10 mg tablet 10 mg PO QPM 0RF Rx Instructions: 5 mg Fridays and 10 mg all other days, or as directed calcium citrate 250 mg calcium Tablet 250 mg PO DAILY 0RF cholecalciferol (vitamin D3) [Vitamin D3] 1,000 unit Tablet 1,000 unit PO DAILY 0RF sodium fluoride-pot nitrate 1.1-5 % paste 1 applic Dental DAILY 0RF Referrals: Isabel Cummins ARNP [Primary Care Provider] -
[2021-10-03] MEDS: CYCLOBENZAPRINE 10 MG TABLET PO (12:13)
[2021-10-03] MEDS: predniSONE 20 MG TABLET 40 MG PO (12:13)
== END 2021-10-03 12:57 | disposition home or self-care (01) ==
PROVIDERS: Emergency Provider Emergency Medicine; PCP Nurse Practitioner
DX: M62.838 Other muscle spasm (principal)
CPT/HCPCS: 99283

== ENCOUNTER 2021-11-29 15:13 | Emergency (ER) | payer MEDICARE, BC, SELFPAY ==
[2021-11-29] VITALS (7 sets, daily range): BP systolic 111–165; BP diastolic 61–80; PULSE 59–79; RESP 13–23; TEMP 36.4–36.6; O2SAT 94–99
--- NOTE | 2021-11-29 15:21 | DI.RAD.S_ITS ---
PROCEDURE: XR CHEST 1V INDICATIONS: chest pain TECHNIQUE: One view of the chest was acquired. COMPARISON: None. FINDINGS: Surgical changes and devices: None. Lungs and pleura: Lungs are clear. No pleural effusions or pneumothorax. Mediastinum: Mediastinal contours appear normal. Heart size is normal. Bones and chest wall: No suspicious bony lesions. Prior left-sided rib fracture. Mild scoliosis. Overlying soft tissues appear unremarkable. IMPRESSION: No acute cardiopulmonary abnormality. Dictated by: Frank Moreno M.D. on 11/29/2021 at 16:20 Approved by: Frank Moreno M.D. on 11/29/2021 at 16:21
[2021-11-29 16:00] LABS: Add Manual Diff / Slide Review NO; Basophils Absolute Auto 0 /uL (0-100); Basophils Percent Auto 0.6 % (0-2); Eosinophils Absolute Auto 100 /uL (0-450); Eosinophils Percent Auto 0.8 % (2-4); Hematocrit 36.4 % (36-46); Hemoglobin 12.2 g/dL (12.0-16.0); Lymphocytes Absolute Auto 2300 /uL (1100-4500); Lymphocytes Percent Auto 30.3 % (25-40); Mean Corpuscular HGB Conc 33.6 % (30-36); Mean Corpuscular Hemoglobin 29.9 PG (26-34); Mean Corpuscular Volume 88.8 fL (80-100); Monocytes Absolute Auto 500 /uL (0-900); Monocytes Percent Auto 6.5 % (3-14); Neutrophils Absolute Auto 4700 /uL (1500-7000); Neutrophils Percent Auto 61.8 % (50-75); Platelet Count 262 X10^3/uL (150-400); Red Cell Distribution Width 14.7 % (11.6-14.8); White Blood Cell Count 7.7 X10^3/uL (4.5-11.0)
[2021-11-29 16:13] LABS: COVID19 -Nasal RAPID POSITIVE (Negative)
--- NOTE | 2021-11-29 16:21 | ED.SOB ---
HPI - SOB/Dyspnea <Tamiko Bustos, [facility] - Last Filed: 11/29/21 18:59> General Chief Complaint: Shortness of Breath/Dyspnea Stated Complaint: staes pneumonia w/o fever Time Seen by Provider: 11/29/21 16:07 Source: patient Mode of arrival: Wheelchair History of Present Illness HPI Narrative: This is a 76-year-old female with history of factor five Leiden on warfarin, COVID vaccinated times 4, who presents to the emergency department complaining of shortness of breath with exertion, a positive COVID test two days ago as well as a positive COVID test 14 days ago. She states that after significant physical exertion like washing her car or walking up a hill she feels short of breath and feels chest tightness. She denies any nausea vomiting, denies any diaphoresis, denies any weakness, or feeling like she cannot get enough air. She denies any history of lung problems. Presents to the emergency department for ongoing symptoms she did not think were COVID symptoms. Patient denies any recent fever, states that she has chest pressure and burning symptoms in the middle of her chest, this is been slightly gradual since she tested positive for COVID but has been worsening over the last few days, states that it is similar to when she had panic attacks. Related Data Home Medications Medication Instructions Recorded Confirmed risedronate 35 mg tablet,delayed 35 mg PO QWEEK ##0 09/03/16 06/27/21 release sodium fluoride 1.1 %-potassium 1 applic dental DAILY 12/02/17 06/27/21 nitrate 5 % dental paste calcium citrate 250 mg PO DAILY 05/12/18 06/27/21 cholecalciferol (vitamin D3) 25 1,000 unit PO DAILY 05/12/18 06/27/21 mcg (1,000 unit) tablet (Vitamin D3) warfarin 10 mg tablet 10 mg PO QPM 11/29/21 11/29/21 Previous Rx's Medication Instructions Recorded alprazolam 0.5 mg tablet (Xanax) 0.5 mg PO PRN PRN flight and 04/20/16 dental anxiety #10 tabs atorvastatin 10 mg tablet (Lipitor) 10 mg PO BEDTIME #90 tabs 02/13/21 famotidine 20 mg tablet See Rx Instructions .Route 02/13/21 .COMPLEX #180 tabs metoprolol tartrate 25 mg tablet See Rx Instructions .Route 02/13/21 .COMPLEX #180 tabs cyclobenzaprine 10 mg tablet 10 mg PO TID PRN muscle spasm #14 10/03/21 tabs hydrocodone 5 mg-acetaminophen 325 1 tab PO Q4-6H PRN pain #10 tabs 10/03/21 mg tablet methylprednisolone 4 mg tablets in See Rx Instructions PO .COMPLEX 10/03/21 a dose pack (Medrol (Roni)) #21 ea acyclovir 400 mg tablet 400 mg PO TID PRN Cold Sores #30 10/23/21 tabs Allergies Allergy/AdvReac Type Severity Reaction Status Date / Time No Known Drug Allergies Allergy Verified 06/27/21 11:25 Review of Systems <SAIGE Dela Cruz - Last Filed: 11/29/21 18:59> Review of Systems Narrative: General: denies fever, chills, malaise, sweats, fatigue Head/Neck: denies headache, neck pain, dizziness Eyes: denies visual changes, eye pain Cardio: denies chest pain, palpitations, edema Respiratory: denies dyspnea, endorses frequent cough and shortness of breath with exertion, denies orthopnea GI: denies abdominal pain, nausea, vomiting, or diarrhea : denies dysuria, hematuria, urinary retention, frequency or incontinence MSK: denies joint pain, muscle weakness Skin: denies rash, itching, skin lesions or other Neuro: denies numbness, tingling Patient History <SAIGE Dela Cruz - Last Filed: 11/29/21 18:59> Medical History Anticoagulated on warfarin Anxiety (1970) Anxiety (Unknown) Arthritis Atrial fibrillation (2004) Betancourt's cyst Cataracts, bilateral (Unknown) Chickenpox (~1950) Deep vein thrombosis (2001) Difficulty swallowing Diverticular disease (2009) Effusion of right knee joint Esophageal dysphagia Factor V Leiden (Unknown) Fractures (2006) Gastric reflux Heberden's nodes of both hands Herpes (2002) Hyperlipemia (Unknown) Laceration of ear tank terminal gauger current use of anticoagulant therapy Measles (~1955) Mumps (~1955) Osteoarthritis (2001) Osteopenia (Unknown) Osteoporosis (Unknown) Other jail (current) drug therapy Right knee pain Sprain of medial collateral ligament of knee Tricompartment osteoarthritis of right knee Wears glasses Surgical History History of hip replacement History of hip replacement Status post colostomy Status post hernia repair Status post hernia repair Family History Father Hypertension Mental health problem Mother Hypertension Hyperlipidemia Social History household members: none Smoking Status: Never smoker alcohol intake: former Smoking Status: Never smoker alcohol intake frequency: other Substance Use Type: does not use Exam <SAIGE Dela Cruz - Last Filed: 11/29/21 18:59> Narrative Exam Narrative: Independently reviewed vitals signs and nursing notes. General: cooperative, comfortable, in no acute distress, well groomed Head: atraumatic, symmetrical facial expressions Neck: supple Eyes: equal round and reactive, EOMI, conjunctiva normal Nose: nares patent, no rhinorrhea Mouth/Throat: moist mucus membranes Cardiovascular: regular rate and rhythm, no peripheral edema, warm extremities Respiratory: normal effort, able to speak in complete sentences, occasional coughing, no audible wheezing, stridor, or rales. No retractions or tachypnea. GI: abdomen soft, nontender to palpation, nondistended, no masses, no exquisite tenderness with exam, without guarding or rebound. MSK: moves all extremities, neurovascularly intact, no weakness, normal tone Skin: brisk capillary refill, no rash, no erythema Neuro: normal speech and cognition, A&O x3 Psych: mental status is grossly normal, congruent mood, normal affect, pleasant and cooperative Initial Vital Signs Initial Vital Signs: Vital Signs Temperature 97.5 F L 11/29/21 15:19 Pulse Rate 72 11/29/21 15:19 Respiratory Rate 22 11/29/21 15:19 Blood Pressure 165/75 H 11/29/21 15:19 Pulse Oximetry 98 11/29/21 15:19 Oxygen Delivery Method 11/29/21 15:19 <Maria Eugenia Rm DO - Last Filed: 12/02/21 18:17> Initial Vital Signs Initial Vital Signs: Vital Signs Temperature 97.5 F L 11/29/21 15:19 Pulse Rate 72 11/29/21 15:19 Respiratory Rate 22 11/29/21 15:19 Blood Pressure 165/75 H 11/29/21 15:19 Pulse Oximetry 98 11/29/21 15:19 Oxygen Delivery Method 11/29/21 15:19 Course <KSENIA Dela CruzP - Last Filed: 11/29/21 18:59> Orders Ordered: ED Orders 11/29/21 15:21 XR chest 1V Stat EKG-12 Lead Stat 11/29/21 15:50 COVID19 -Nasal RAPID/Pre-Proc Stat Complete Blood Count AUTO DIFF Stat Comprehensive Metabolic Panel Stat D Dimer Stat Lipase Stat Magnesium Stat Prothrombin Time INR Stat Troponin & CK Cardiac Panel Stat Vital Signs Vital signs: Vital Signs - 8 hr 11/29/21 15:19 11/29/21 15:55 11/29/21 15:58 Temperature 97.5 F L Pulse Rate 72 79 Respiratory Rate 22 13 Blood Pressure 165/75 H 141/80 H Pulse Oximetry 98 94 99 11/29/21 16:00 11/29/21 16:30 11/29/21 17:00 Temperature Pulse Rate 61 61 59 L Respiratory Rate 16 23 Blood Pressure 157/76 H 126/64 111/69 Pulse Oximetry 99 97 98 11/29/21 17:55 Temperature 98 F Pulse Rate 66 Respiratory Rate 18 Blood Pressure 144/61 H Pulse Oximetry 97 <Maria Eugenia Rm DO - Last Filed: 12/02/21 18:17> Orders Ordered: ED Orders 11/29/21 15:21 XR chest 1V Stat EKG-12 Lead Stat 11/29/21 15:50 COVID19 -Nasal RAPID/Pre-Proc Stat Complete Blood Count AUTO DIFF Stat Comprehensive Metabolic Panel Stat D Dimer Stat Lipase Stat Magnesium Stat Prothrombin Time INR Stat Troponin & CK Cardiac Panel Stat Vital Signs Vital signs: Vital Signs - 8 hr 11/29/21 15:19 11/29/21 15:55 11/29/21 15:58 Temperature 97.5 F L Pulse Rate 72 79 Respiratory Rate 22 13 Blood Pressure 165/75 H 141/80 H Pulse Oximetry 98 94 99 11/29/21 16:00 11/29/21 16:30 11/29/21 17:00 Temperature Pulse Rate 61 61 59 L Respiratory Rate 16 23 Blood Pressure 157/76 H 126/64 111/69 Pulse Oximetry 99 97 98 11/29/21 17:55 Temperature 98 F Pulse Rate 66 Respiratory Rate 18 Blood Pressure 144/61 H Pulse Oximetry 97 MDM - SOB/Dyspnea <Tamiko Bustos, [facility] - Last Filed: 11/29/21 18:59> Lab Data Result diagrams: 11/29/21 15:50 11/29/21 15:50 Labs: Lab Results 11/29/21 11/29/21 11/29/21 Range/Units 15:50 15:50 15:50 WBC 7.7 (4.5-11.0) X10^3/uL RBC 4.10 (4.0-5.2) X10^6/uL Hgb 12.2 (12.0-16.0) g/dL Hct 36.4 (36-46) % MCV 88.8 (80-100) fL MCH 29.9 (26-34) PG MCHC 33.6 (30-36) % RDW 14.7 (11.6-14.8) % Plt Count 262 (150-400) X10^3/uL Neut % (Auto) 61.8 (50-75) % Lymph % (Auto) 30.3 (25-40) % Harnett % (Auto) 6.5 (3-14) % Eos % (Auto) 0.8 L (2-4) % Baso % (Auto) 0.6 (0-2) % Neut # (Auto) 4700 (0441-9026) /uL Lymph # (Auto) 2300 (0943-1971) /uL Harnett # (Auto) 500 (0-900) /uL Eos # (Auto) 100 (0-450) /uL Baso # (Auto) 0 (0-100) /uL PT 30.2 H (10.1-12.7) SECONDS INR 2.6 H (0.9-1.3) D-Dimer (<230) ng/mL Sodium 138 (137-145) mmol/L Potassium 4.2 (3.4-5.1) mmol/L Chloride 104 (98-107) mmol/L Carbon Dioxide 24 (22-32) mmol/L BUN 23 H (7-17) mg/dL Creatinine 1.04 (0.52-1.04) mg/dL Estimated GFR 56 L (>60) mL/min BUN/Creatinine Ratio 22.1 H (6-22) Glucose 103 (80-110) mg/dL Calcium 8.9 (8.4-10.2) mg/dL Magnesium 2.2 (1.6-2.3) mg/dL Total Bilirubin 0.3 (0.2-1.3) mg/dL AST 38 H (14-36) IU/L ALT 16 (<35) IU/L Alkaline Phosphatase 66 (38-126) U/L Total Creatine Kinase 79 (30-135) U/L CK-MB (CK-2) TNP CK-MB (CK-2) Rel Index TNP Troponin I < 0.012 (0.01-0.034) ng/mL Total Protein 7.2 (6.3-8.2) g/dL Albumin 4.5 (3.5-5.0) g/dL Globulin 2.7 (1.7-4.1) g/dL Albumin/Globulin Ratio 1.7 (1.0-2.8) Lipase 112 (23-300) U/L SARS-CoV-2 (PCR) (Negative) 11/29/21 11/29/21 Range/Units 15:50 15:50 WBC (4.5-11.0) X10^3/uL RBC (4.0-5.2) X10^6/uL Hgb (12.0-16.0) g/dL Hct (36-46) % MCV (80-100) fL MCH (26-34) PG MCHC (30-36) % RDW (11.6-14.8) % Plt Count (150-400) X10^3/uL Neut % (Auto) (50-75) % Lymph % (Auto) (25-40) % Harnett % (Auto) (3-14) % Eos % (Auto) (2-4) % Baso % (Auto) (0-2) % Neut # (Auto) (4799-6499) /uL Lymph # (Auto) (9606-1595) /uL Harnett # (Auto) (0-900) /uL Eos # (Auto) (0-450) /uL Baso # (Auto) (0-100) /uL PT (10.1-12.7) SECONDS INR (0.9-1.3) D-Dimer < 200 (<230) ng/mL Sodium (137-145) mmol/L Potassium (3.4-5.1) mmol/L Chloride (98-107) mmol/L Carbon Dioxide (22-32) mmol/L BUN (7-17) mg/dL Creatinine (0.52-1.04) mg/dL Estimated GFR (>60) mL/min BUN/Creatinine Ratio (6-22) Glucose (80-110) mg/dL Calcium (8.4-10.2) mg/dL Magnesium (1.6-2.3) mg/dL Total Bilirubin (0.2-1.3) mg/dL AST (14-36) IU/L ALT (<35) IU/L Alkaline Phosphatase (38-126) U/L Total Creatine Kinase (30-135) U/L CK-MB (CK-2) CK-MB (CK-2) Rel Index Troponin I (0.01-0.034) ng/mL Total Protein (6.3-8.2) g/dL Albumin (3.5-5.0) g/dL Globulin (1.7-4.1) g/dL Albumin/Globulin Ratio (1.0-2.8) Lipase (23-300) U/L SARS-CoV-2 (PCR) Positive H (Negative) Imaging Data Chest x-ray: Radiologist's Impression: PROCEDURE:? XR CHEST 1V ? INDICATIONS:? chest pain ? TECHNIQUE:? One view of the chest was acquired.? ? COMPARISON:? None. ? FINDINGS:? ? Surgical changes and devices:? None.? ? Lungs and pleura:? Lungs are clear.? No pleural effusions or pneumothorax.? ? Mediastinum:? Mediastinal contours appear normal.? Heart size is normal.? ? Bones and chest wall:? No suspicious bony lesions.? Prior left-sided rib fracture.? Mild scoliosis.? Overlying soft tissues appear unremarkable.? ? IMPRESSION:? No acute cardiopulmonary abnormality. ? ? ? Dictated by: Frank Moreno M.D. on 11/29/2021 at 16:20 ? ? Approved by: Frank Moreno M.D. on 11/29/2021 at 16:21 ? ECG Data Interpretation: EKG independently reviewed by myself and Dr. Rm which reveals normal sinus rhythm at 72 bpm with normal axis and intervals. No STEMI, ST segment changes, arrhythmia, or acute ischemic changes. MDM Narrative Medical decision making narrative: This is a 76-year-old female who has a history of factor five Leiden and is chronically anticoagulated on warfarin for an INR range of 2-3, history of anxiety, hyperlipidemia, hyperglycemia, atrial fibrillation and hypertension who tested positive for COVID 14 days ago, tested positive for COVID at home two days ago, tested positive again for COVID today in the emergency department who presents to the emergency department for exertional shortness of breath after activity, fatigue, ongoing cough. Her INR today is 2.6, this is therapeutic within her range although her last measured INR was 3.7 on 11/03/2021. Chest x-rays negative for acute cardiopulmonary abnormality, the D-dimer is less than 200, EKG compared to prior does not show any ST changes, arrhythmia, or new changes. Lab work does not show any leukocytosis, no electrolyte abnormalities, creatinine is slightly above her baseline of 0.75, today it is 1.04 with a GFR 56. I presume patient has been slightly dehydrated, her cardiac enzymes are all negative, liver enzymes are not elevated, lipase is 112, COVID PCR today is positive. Patient has not had any recent fever or chills, no vomiting, complains only of exertional dyspnea after walking up a hill or washing her car. She states that her symptoms resolve when she rests. This is most likely symptoms caused by her COVID illness. No significant findings were found on workup, her INR is within range and she is encouraged to follow-up with her primary care provider for any new or worsening symptoms. Discussed return precautions, she does not have any hypoxia, she is on day 12 of her symptoms without hypoxia, respiratory distress, dehydration, or focal exam to suggest secondary bacterial infection. Discussed CDC guidelines for quarantine, mask wearing, physical distancing, and infection prevention measures such as frequent handwashing. Discussed supportive treatments: Tylenol/Motrin as needed for pain/fever. OTC decongestant medications and/or antihistamines for symptomatic relief. Maintain adequate fluid intake. Follow-up with PCP as directed. Return to clinic/ER instructions discussed for new, not improving, or worsening symptoms. All questions answered. <Maria Eugenia Rm, DO - Last Filed: 12/02/21 18:17> Lab Data Labs: Lab Results 11/29/21 11/29/21 11/29/21 Range/Units 15:50 15:50 15:50 WBC 7.7 (4.5-11.0) X10^3/uL RBC 4.10 (4.0-5.2) X10^6/uL Hgb 12.2 (12.0-16.0) g/dL Hct 36.4 (36-46) % MCV 88.8 (80-100) fL MCH 29.9 (26-34) PG MCHC 33.6 (30-36) % RDW 14.7 (11.6-14.8) % Plt Count 262 (150-400) X10^3/uL Neut % (Auto) 61.8 (50-75) % Lymph % (Auto) 30.3 (25-40) % Harnett % (Auto) 6.5 (3-14) % Eos % (Auto) 0.8 L (2-4) % Baso % (Auto) 0.6 (0-2) % Neut # (Auto) 4700 (0668-5789) /uL Lymph # (Auto) 2300 (4750-0723) /uL Harnett # (Auto) 500 (0-900) /uL Eos # (Auto) 100 (0-450) /uL Baso # (Auto) 0 (0-100) /uL PT 30.2 H (10.1-12.7) SECONDS INR 2.6 H (0.9-1.3) D-Dimer (<230) ng/mL Sodium 138 (137-145) mmol/L Potassium 4.2 (3.4-5.1) mmol/L Chloride 104 (98-107) mmol/L Carbon Dioxide 24 (22-32) mmol/L BUN 23 H (7-17) mg/dL Creatinine 1.04 (0.52-1.04) mg/dL Estimated GFR 56 L (>60) mL/min BUN/Creatinine Ratio 22.1 H (6-22) Glucose 103 (80-110) mg/dL Calcium 8.9 (8.4-10.2) mg/dL Magnesium 2.2 (1.6-2.3) mg/dL Total Bilirubin 0.3 (0.2-1.3) mg/dL AST 38 H (14-36) IU/L ALT 16 (<35) IU/L Alkaline Phosphatase 66 (38-126) U/L Total Creatine Kinase 79 (30-135) U/L CK-MB (CK-2) TNP CK-MB (CK-2) Rel Index TNP Troponin I < 0.012 (0.01-0.034) ng/mL Total Protein 7.2 (6.3-8.2) g/dL Albumin 4.5 (3.5-5.0) g/dL Globulin 2.7 (1.7-4.1) g/dL Albumin/Globulin Ratio 1.7 (1.0-2.8) Lipase 112 (23-300) U/L SARS-CoV-2 (PCR) (Negative) 11/29/21 11/29/21 Range/Units 15:50 15:50 WBC (4.5-11.0) X10^3/uL RBC (4.0-5.2) X10^6/uL Hgb (12.0-16.0) g/dL Hct (36-46) % MCV (80-100) fL MCH (26-34) PG MCHC (30-36) % RDW (11.6-14.8) % Plt Count (150-400) X10^3/uL Neut % (Auto) (50-75) % Lymph % (Auto) (25-40) % Harnett % (Auto) (3-14) % Eos % (Auto) (2-4) % Baso % (Auto) (0-2) % Neut # (Auto) (0205-9337) /uL Lymph # (Auto) (7303-2597) /uL Harnett # (Auto) (0-900) /uL Eos # (Auto) (0-450) /uL Baso # (Auto) (0-100) /uL PT (10.1-12.7) SECONDS INR (0.9-1.3) D-Dimer < 200 (<230) ng/mL Sodium (137-145) mmol/L Potassium (3.4-5.1) mmol/L Chloride (98-107) mmol/L Carbon Dioxide (22-32) mmol/L BUN (7-17) mg/dL Creatinine (0.52-1.04) mg/dL Estimated GFR (>60) mL/min BUN/Creatinine Ratio (6-22) Glucose (80-110) mg/dL Calcium (8.4-10.2) mg/dL Magnesium (1.6-2.3) mg/dL Total Bilirubin (0.2-1.3) mg/dL AST (14-36) IU/L ALT (<35) IU/L Alkaline Phosphatase (38-126) U/L Total Creatine Kinase (30-135) U/L CK-MB (CK-2) CK-MB (CK-2) Rel Index Troponin I (0.01-0.034) ng/mL Total Protein (6.3-8.2) g/dL Albumin (3.5-5.0) g/dL Globulin (1.7-4.1) g/dL Albumin/Globulin Ratio (1.0-2.8) Lipase (23-300) U/L SARS-CoV-2 (PCR) Positive H (Negative) Discharge Plan Departure Patient Disposition: Home Clinical Impression: COVID-19, Exertional dyspnea Instructions: DI for Shortness of Breath, DI for COVID-19 (Suspected or Confirmed ) Activity Restrictions/Additional Instructions: *You have been diagnosed with a positive COVID test, no evidence of any blood clots, your INR today is 2.6 which is within your 2-3 range for your warfarin dosing. You did not have any significant abnormal lab findings, the only abnormal and significant lab finding was uro positive COVID test. Your cardiac function labs are all normal, there is no elevation to any of your liver function tests, your kidney function suggest that you might be slightly dehydrated, I would encourage you to drink some more water today. That may help with your fatigue symptom as well. Your x-ray does not show any pneumonia at this time which is great, your white blood cell count is not elevated, and everything else seems stable. I hope that your symptoms start to improve. Please use Tylenol if you are feeling any significant chills, fever, headache, or were month cold. You may use [id number] allergy medications like Flonase, and Claritin to help treat any nasal congestion symptoms. Please use Mucinex if you are having chest congestion, this will make your sputum thin so that it is easier to cough. Please schedule follow-up appointment which Isabel MOULTON. Please return to the emergency department if you are having any worsening of the shortness of breath, difficulty breathing, or worsening other symptoms. *What to do: *Please continue to take your regular medications as directed. [ ] New medication prescriptions sent to your pharmacy: [ ] [ ] New medication written as a paper prescription [ x] No new medications given *Please follow up with your primary care provider in 2-3 days, call for an appointment. Let them know you were seen in the Emergency Department and that we asked that you be seen for follow-up. We will electronically transmit a record of today's note if your PCP is in our system *If you do not have a primary care provider please contact [phone] to establish care with one of the [facility] primary care providers. *Return to Emergency Department if you should have any new, worsening or concerning symptoms, such as [fever greater than 101F, chills, worsening pain, persistent vomiting or other bothersome symptoms] Prescriptions: No Action risedronate 35 MG tablet,delayed release (DR/EC) 35 mg PO QWEEK Qty: 0 Label Comments: mondays metoprolol tartrate 25 mg tablet See Rx Instructions .ROUTE .COMPLEX Qty: 180 3RF Dose Instruction: TAKE ONE TABLET BY MOUTH TWICE DAILY FOR BLOOD PRESSURE Rx Instructions: TAKE ONE TABLET BY MOUTH TWICE DAILY FOR BLOOD PRESSURE atorvastatin [Lipitor] 10 mg tablet 10 mg PO BEDTIME Qty: 90 3RF famotidine 20 mg tablet See Rx Instructions .ROUTE .COMPLEX Qty: 180 3RF Dose Instruction: TAKE ONE TABLET BY MOUTH TWICE DAILY for GERD Rx Instructions: TAKE ONE TABLET BY MOUTH TWICE DAILY FOR GERD acyclovir 400 mg tablet 400 mg PO TID PRN (Reason: Cold Sores) Qty: 30 2RF alprazolam [Xanax] 0.5 mg tablet 0.5 mg PO PRN PRN (Reason: flight and dental anxiety) Qty: 10 0RF warfarin 10 mg tablet 10 mg PO QPM Rx Instructions: 5 mg Saturday and 10 mg all other days, or as directed calcium citrate 250 mg calcium Tablet 250 mg PO DAILY cholecalciferol (vitamin D3) [Vitamin D3] 1,000 unit Tablet 1,000 unit PO DAILY sodium fluoride-pot nitrate 1.1-5 % paste 1 applic Dental DAILY cyclobenzaprine 10 mg tablet 10 mg PO TID PRN (Reason: muscle spasm) Qty: 14 0RF hydrocodone-acetaminophen 5-325 mg tablet 1 tab PO Q4-6H PRN (Reason: pain) Qty: 10 0RF methylprednisolone [Medrol (Roni)] 4 mg tablets,dose pack See Rx Instructions .ROUTE .COMPLEX Qty: 21 0RF Rx Instructions: orally per package directions Referrals: Isabel Cummins ARNP [Primary Care Provider] - Visit Report Forms: Patient Portal/API <Maria Eugenia Rm DO - Last Filed: 12/02/21 18:17> Cosign ED Attending Christianature Attestation: I was immediately available in the department for consultation. Documentation has been reviewed.
[2021-11-29 16:33] LABS: INR 2.6 (0.9-1.3); Prothrombin Time 30.2 SECONDS (10.1-12.7)
[2021-11-29 16:36] LABS: Alanine Aminotransferase 16 IU/L (<35); Albumin 4.5 g/dL (3.5-5.0); Albumin Globulin Ratio 1.7 (1.0-2.8); Alkaline Phosphatase 66 U/L (38-126); Aspartate Aminotransferase 38 IU/L (14-36); BUN Creatinine Ratio 22.1 (6-22); Bilirubin Total 0.3 mg/dL (0.2-1.3); Blood Urea Nitrogen 23 mg/dL (7-17); Calcium 8.9 mg/dL (8.4-10.2); Carbon Dioxide 24 mmol/L (22-32); Chloride 104 mmol/L (98-107); Creatine Kinase 79 U/L (30-135); Estimated Glomerular Filt Rate 56 mL/min (>60); Globulin 2.7 g/dL (1.7-4.1); Glucose 103 mg/dL (80-110); HEMOLYSIS < 15 (0-50); Lipase 112 U/L (23-300); Magnesium 2.2 mg/dL (1.6-2.3); Potassium 4.2 mmol/L (3.4-5.1); Sodium 138 mmol/L (137-145); Total Protein 7.2 g/dL (6.3-8.2)
[2021-11-29 16:47] LABS: Troponin I < 0.012 ng/mL (0.01-0.034)
[2021-11-29 17:12] LABS: D Dimer < 200 ng/mL (<230)
== END 2021-11-29 17:57 | disposition home or self-care (01) ==
PROVIDERS: Emergency Medicine; Emergency Provider Nurse Practitioner Critical Care Medicine; PCP Nurse Practitioner
DX: U07.1 COVID-19 (principal); R06.00 Dyspnea, unspecified; R07.9 Chest pain, unspecified
CPT/HCPCS: 36415; 71045; 80053; 82550; 83690; 83735; 84484; 85025; 85379; 85610; 87635; 93005; 93010; 99283; C9803

== ENCOUNTER → 2022-01-10 09:30 | Outpatient (CLI) | payer MEDICARE, BC, SELFPAY ==
[2022-01-10 10:02] LABS: Alanine Aminotransferase 19 IU/L (<35); Albumin 4.4 g/dL (3.5-5.0); Albumin Globulin Ratio 1.8 (1.0-2.8); Alkaline Phosphatase 55 U/L (38-126); Aspartate Aminotransferase 37 IU/L (14-36); BUN Creatinine Ratio 14.3 (6-22); Bilirubin Total 0.6 mg/dL (0.2-1.3); Blood Urea Nitrogen 12 mg/dL (7-17); Calcium 8.8 mg/dL (8.4-10.2); Carbon Dioxide 28 mmol/L (22-32); Chloride 107 mmol/L (98-107); Cholesterol 178 mg/dL (140-199); Estimated Glomerular Filt Rate > 60 mL/min (>60); Globulin 2.5 g/dL (1.7-4.1); Glucose 99 mg/dL (80-110); HDL Cholesterol 59 mg/dL (40-60); HEMOLYSIS < 15 (0-50); LDL Cholesterol Calculated 102 mg/dL (<100); Potassium 3.9 mmol/L (3.4-5.1); Sodium 141 mmol/L (137-145); Total Protein 6.9 g/dL (6.3-8.2); Triglycerides 84 mg/dL (35-150)
[2022-01-10 11:35] LABS: Free T3, Triiodothyronine Free 3.06 pg/mL (2.77-5.27); Free T4, Direct Thyroxine 1.29 ng/dL (0.78-2.19)
[2022-01-10 11:48] LABS: Thyroid Stimulating Hormone 1.98 uIU/mL (0.47-4.68)
== END ==
PROVIDERS: PCP Nurse Practitioner; Referring Provider Nurse Practitioner; Visit Provider Nurse Practitioner
DX: E78.2 Mixed hyperlipidemia (principal); F41.9 Anxiety disorder, unspecified; I10 Essential (primary) hypertension; R73.9 Hyperglycemia, unspecified; Z79.899 Other long term (current) drug therapy
CPT/HCPCS: 36415; 80053; 80061; 84439; 84443; 84481

== ENCOUNTER 2022-01-30 12:26 | Emergency (ER) | payer MEDICARE, BC, SELFPAY ==
[2022-01-30 12:34] VITALS: BP 167/78; PULSE 58; RESP 15; TEMP 36.1; O2SAT 99; BMI 20.8
--- NOTE | 2022-01-30 12:37 | DI.RAD.S_ITS ---
PROCEDURE: XR CHEST 1V INDICATIONS: chest pain TECHNIQUE: One view of the chest was acquired. COMPARISON: [facility], CR, XR CHEST 1V, 11/29/2021, 15:45. [facility], CR, XR CHEST 1V, 12/02/2017, 11:58. FINDINGS: Surgical changes and devices: None. Lungs and pleura: Lungs are clear. Right nipple shadow. No pleural effusions or pneumothorax. Mediastinum: Mediastinal contours appear normal. Heart size is normal. Bones and chest wall: No suspicious bony lesions. Callus formation at the right lateral 6th rib. This is new in the interval since 11/29/2021. Stable chronic left 9th rib fracture. Overlying soft tissues appear unremarkable. IMPRESSION: Suspect right lateral 6th rib fracture, new in the interval since November 2021. Dictated by: Frank Moreno M.D. on 01/30/2022 at 13:11 Approved by: Frank Moreno M.D. on 01/30/2022 at 13:13
[2022-01-30 13:07] LABS: Add Manual Diff / Slide Review NO; Basophils Absolute Auto 0 /uL (0-100); Basophils Percent Auto 0.5 % (0-2); Eosinophils Absolute Auto 100 /uL (0-450); Eosinophils Percent Auto 1.7 % (2-4); Hematocrit 37.6 % (36-46); Hemoglobin 12.6 g/dL (12.0-16.0); INR 2.9 (0.9-1.3); Lymphocytes Absolute Auto 2100 /uL (1100-4500); Mean Corpuscular HGB Conc 33.4 % (30-36); Mean Corpuscular Hemoglobin 30.1 PG (26-34); Mean Corpuscular Volume 90.1 fL (80-100); Monocytes Absolute Auto 500 /uL (0-900); Monocytes Percent Auto 8.7 % (3-14); Neutrophils Absolute Auto 3500 /uL (1500-7000); Neutrophils Percent Auto 55.1 % (50-75); Platelet Count 220 X10^3/uL (150-400); Prothrombin Time 32.7 SECONDS (10.1-12.7); Red Blood Cell Count 4.17 X10^6/uL (4.0-5.2); White Blood Cell Count 6.3 X10^3/uL (4.5-11.0)
[2022-01-30 13:09] LABS: PTT Partial Thromboplastin Tim 45 SECONDS (26.4-36.2)
[2022-01-30 13:13] LABS: Alanine Aminotransferase 16 IU/L (<35); Albumin 4.6 g/dL (3.5-5.0); Albumin Globulin Ratio 1.6 (1.0-2.8); Alkaline Phosphatase 66 U/L (38-126); Aspartate Aminotransferase 34 IU/L (14-36); BUN Creatinine Ratio 17.9 (6-22); Bilirubin Total 0.3 mg/dL (0.2-1.3); Blood Urea Nitrogen 15 mg/dL (7-17); Carbon Dioxide 26 mmol/L (22-32); Chloride 104 mmol/L (98-107); Creatine Kinase 60 U/L (30-135); Estimated Glomerular Filt Rate > 60 mL/min (>60); Globulin 2.9 g/dL (1.7-4.1); Glucose 97 mg/dL (80-110); HEMOLYSIS < 15 (0-50); Lipase 105 U/L (23-300); Magnesium 2.1 mg/dL (1.6-2.3); Potassium 4.2 mmol/L (3.4-5.1); Sodium 139 mmol/L (137-145); Total Protein 7.5 g/dL (6.3-8.2)
[2022-01-30 13:14] VITALS: PULSE 52; O2SAT 99
[2022-01-30 13:23] VITALS: BP 147/73; PULSE 66; O2SAT 99
[2022-01-30 13:24] LABS: Troponin I < 0.012 ng/mL (0.01-0.034)
[2022-01-30 13:30] VITALS: BP 152/72; PULSE 58; O2SAT 99
[2022-01-30 13:49] LABS: NT-proBNP (BNP-Adult 18+) 268 pg/mL (<125)
--- NOTE | 2022-01-30 13:52 | ED.CHESTPAIN ---
HPI - Chest Pain General Chief Complaint: Chest Pain Stated Complaint: CHEST PAIN Time Seen by Provider: 01/30/22 13:10 Source: patient Mode of arrival: Wheelchair Limitations: no limitations History of Present Illness HPI narrative: This is a 76-year-old female with history of anxiety, hypertension, dyslipidemia, factor 5 Leiden on warfarin and GERD. Patient has had a prior colon resection 12 years ago for diverticulitis. Patient states yesterday she was feeling very anxious she states this is quite common for her. She states she was at her car, felt fluttering her chest for several seconds felt dizzy but never felt syncopal. It resolved and she had chest discomfort for about 10 minutes afterwards that resolved. She denies shortness of breath. No nausea, no vomiting no diaphoresis. No fevers or chills. No cold, cough or congestion. No diarrhea, constipation no black or bloody stools. No new changes urine symptoms. Patient states that she had a primary care appointment today was seen they told her she had a new left bundle branch block on her EKG and sent her here. Patient is on metoprolol, atorvastatin, warfarin and medication for her GERD and occasional Xanax. Patient denies any prior cardiac interventions, no stents, she states she had a Holter monitor but probably many years ago. She had resection 12 years ago for diverticulitis that perforated but no other medical issues. No tobacco, alcohol illicit. 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 Related Data Home Medications Medication Instructions Recorded Confirmed risedronate 35 mg tablet,delayed 35 mg PO QWEEK ##0 09/03/16 01/30/22 release sodium fluoride 1.1 %-potassium 1 applic dental DAILY 12/02/17 01/30/22 nitrate 5 % dental paste calcium citrate 250 mg PO DAILY 05/12/18 01/30/22 cholecalciferol (vitamin D3) 25 1,000 unit PO DAILY 05/12/18 01/30/22 mcg (1,000 unit) tablet (Vitamin D3) warfarin 10 mg tablet See Rx Instructions PO .COMPLEX 01/09/22 01/30/22 Previous Rx's Medication Instructions Recorded alprazolam 0.5 mg tablet (Xanax) 0.5 mg PO PRN PRN flight and 04/20/16 dental anxiety #10 tabs atorvastatin 10 mg tablet (Lipitor) 10 mg PO BEDTIME #90 tabs 08/23/21 famotidine 20 mg tablet See Rx Instructions .Route 02/13/21 .COMPLEX #180 tabs cyclobenzaprine 10 mg tablet 10 mg PO TID PRN muscle spasm #14 10/03/21 tabs hydrocodone 5 mg-acetaminophen 325 1 tab PO Q4-6H PRN pain #10 tabs 10/03/21 mg tablet methylprednisolone 4 mg tablets in See Rx Instructions PO .COMPLEX 10/03/21 a dose pack (Medrol (Roni)) #21 ea acyclovir 400 mg tablet 400 mg PO TID PRN Cold Sores #30 10/23/21 tabs methylprednisolone 4 mg tablets in See Rx Instructions PO PER PKG DIR 12/08/21 a dose pack #21 ea metoprolol tartrate 25 mg tablet See Rx Instructions .Route 01/29/22 .COMPLEX #180 tabs Allergies Allergy/AdvReac Type Severity Reaction Status Date / Time No Known Drug Allergies Allergy Verified 01/30/22 12:34 Review of Systems Review of Systems ROS Unobtainable: All systems reviewed & are unremarkable except as noted in HPI and below Patient History Medical History Anticoagulated on warfarin Anxiety (1970) Anxiety (Unknown) Arthritis Atrial fibrillation (2004) Betancourt's cyst Cataracts, bilateral (Unknown) Chickenpox (~1950) Deep vein thrombosis (2001) Difficulty swallowing Diverticular disease (2009) Effusion of right knee joint Esophageal dysphagia Factor V Leiden (Unknown) Fractures (2006) Gastric reflux Heberden's nodes of both hands Herpes (2002) Hyperlipemia (Unknown) Laceration of ear 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 Measles (~1955) Mumps (~1955) On beta ildefonso at home Osteoarthritis (2001) Osteopenia (Unknown) Osteoporosis (Unknown) Other assisted (current) drug therapy Right knee pain Sprain of medial collateral ligament of knee Tricompartment osteoarthritis of right knee Wears glasses Surgical History History of hip replacement History of hip replacement Status post colostomy Status post hernia repair Status post hernia repair Family History Father Hypertension Mental health problem Mother Hypertension Hyperlipidemia Social History household members: none Smoking Status: Never smoker alcohol intake: former Smoking Status: Never smoker alcohol intake frequency: other Substance Use Type: does not use Exam Narrative Exam Narrative: GENERAL: Alert and oriented x three, elderly female in mild distress. HEENT: Head normocephalic, atraumatic, EOMI, pupils reactive, face symmetric, moist mucous membranes NECK: Supple, full range of motion CARDIOVASCULAR: Regular rate and rhythm without murmurs, rubs or gallops. No JVD. No swelling bilateral lower extremities. Patient has regular heart rhythm occasional PVC noted on telemetry but not regularly RESPIRATORY: Breath sounds equal bilaterally, no wheezes rales or rhonchi. ABDOMEN: Soft, nontender. Normoactive bowel sounds all 4 quadrants. No guarding or rebound, rigidity, no mass : No CVA tenderness EXTREMITIES: Normal range of motion, no clubbing or edema. Neurovascularly intact NEUROLOGICAL: Cranial nerves II through XII grossly intact. Moving all extremities SKIN: Warm, dry, no petechiae, no rashes or lesions. Initial Vital Signs Initial Vital Signs: Vital Signs Temperature 96.9 F L 01/30/22 12:34 Pulse Rate 58 L 01/30/22 12:34 Respiratory Rate 15 01/30/22 12:34 Blood Pressure 167/78 H 01/30/22 12:34 Pulse Oximetry 99 01/30/22 12:34 Oxygen Delivery Method 01/30/22 12:34 Course Orders Ordered: ED Orders 01/30/22 12:24 EKG-12 Lead Stat 01/30/22 12:37 XR chest 1V Stat 01/30/22 12:40 BNP [NT-proBNP (BNP-Adult 18+)] Stat Complete Blood Count AUTO DIFF Stat Comprehensive Metabolic Panel Stat Lipase Stat Magnesium Stat Partial Thromboplastin Time Stat Prothrombin Time INR Stat Troponin & CK Cardiac Panel Stat Vital Signs Vital signs: Vital Signs - 8 hr 01/30/22 12:34 Temperature 96.9 F L Pulse Rate 58 L Respiratory Rate 15 Blood Pressure 167/78 H Pulse Oximetry 99 Oxygen Delivery Method Room Air MDM - Chest Pain Lab Data Result diagrams: 01/30/22 12:40 01/30/22 12:40 Labs: Lab Results 01/30/22 01/30/22 01/30/22 Range/Units 12:40 12:40 12:40 WBC 6.3 (4.5-11.0) X10^3/uL RBC 4.17 (4.0-5.2) X10^6/uL Hgb 12.6 (12.0-16.0) g/dL Hct 37.6 (36-46) % MCV 90.1 (80-100) fL MCH 30.1 (26-34) PG MCHC 33.4 (30-36) % RDW 15.0 H (11.6-14.8) % Plt Count 220 (150-400) X10^3/uL Neut % (Auto) 55.1 (50-75) % Lymph % (Auto) 34.0 (25-40) % [place] % (Auto) 8.7 (3-14) % Eos % (Auto) 1.7 L (2-4) % Baso % (Auto) 0.5 (0-2) % Neut # (Auto) 3500 (7060-8104) /uL Lymph # (Auto) 2100 (5287-0154) /uL [place] # (Auto) 500 (0-900) /uL Eos # (Auto) 100 (0-450) /uL Baso # (Auto) 0 (0-100) /uL PT 32.7 H (10.1-12.7) SECONDS INR 2.9 H (0.9-1.3) APTT 45 H (26.4-36.2) SECONDS Sodium 139 (137-145) mmol/L Potassium 4.2 (3.4-5.1) mmol/L Chloride 104 (98-107) mmol/L Carbon Dioxide 26 (22-32) mmol/L BUN 15 (7-17) mg/dL Creatinine 0.84 (0.52-1.04) mg/dL Estimated GFR > 60 (>60) mL/min BUN/Creatinine Ratio 17.9 (6-22) Glucose 97 (80-110) mg/dL Calcium 9.0 (8.4-10.2) mg/dL Magnesium 2.1 (1.6-2.3) mg/dL Total Bilirubin 0.3 (0.2-1.3) mg/dL AST 34 (14-36) IU/L ALT 16 (<35) IU/L Alkaline Phosphatase 66 (38-126) U/L Total Creatine Kinase 60 (30-135) U/L CK-MB (CK-2) TNP CK-MB (CK-2) Rel Index TNP Troponin I < 0.012 (0.01-0.034) ng/mL NT-Pro-B Natriuret Pep (<125) pg/mL Total Protein 7.5 (6.3-8.2) g/dL Albumin 4.6 (3.5-5.0) g/dL Globulin 2.9 (1.7-4.1) g/dL Albumin/Globulin Ratio 1.6 (1.0-2.8) Lipase 105 (23-300) U/L 01/30/22 Range/Units 12:40 WBC (4.5-11.0) X10^3/uL RBC (4.0-5.2) X10^6/uL Hgb (12.0-16.0) g/dL Hct (36-46) % MCV (80-100) fL MCH (26-34) PG MCHC (30-36) % RDW (11.6-14.8) % Plt Count (150-400) X10^3/uL Neut % (Auto) (50-75) % Lymph % (Auto) (25-40) % [place] % (Auto) (3-14) % Eos % (Auto) (2-4) % Baso % (Auto) (0-2) % Neut # (Auto) (8780-0592) /uL Lymph # (Auto) (0402-4724) /uL [place] # (Auto) (0-900) /uL Eos # (Auto) (0-450) /uL Baso # (Auto) (0-100) /uL PT (10.1-12.7) SECONDS INR (0.9-1.3) APTT (26.4-36.2) SECONDS Sodium (137-145) mmol/L Potassium (3.4-5.1) mmol/L Chloride (98-107) mmol/L Carbon Dioxide (22-32) mmol/L BUN (7-17) mg/dL Creatinine (0.52-1.04) mg/dL Estimated GFR (>60) mL/min BUN/Creatinine Ratio (6-22) Glucose (80-110) mg/dL Calcium (8.4-10.2) mg/dL Magnesium (1.6-2.3) mg/dL Total Bilirubin (0.2-1.3) mg/dL AST (14-36) IU/L ALT (<35) IU/L Alkaline Phosphatase (38-126) U/L Total Creatine Kinase (30-135) U/L CK-MB (CK-2) CK-MB (CK-2) Rel Index Troponin I (0.01-0.034) ng/mL NT-Pro-B Natriuret Pep 268 H (<125) pg/mL Total Protein (6.3-8.2) g/dL Albumin (3.5-5.0) g/dL Globulin (1.7-4.1) g/dL Albumin/Globulin Ratio (1.0-2.8) Lipase (23-300) U/L Imaging Data Chest x-ray: Radiologist's Impression: [address] [address] XRay Report Signed Patient: Jewell Henderson MR#: [id number] : 1945 Acct:[id number] Age/Sex: 76 / F Date of Service: 01/30/22 Loc: ED Accession Number: [id number] ?? Procedure: XR chest 1V Ordering Provider: Maria Eugenia Rm D.O. PROCEDURE:? XR CHEST 1V ? INDICATIONS:? chest pain ? TECHNIQUE:? One view of the chest was acquired.? ? COMPARISON:? [facility], CR, XR CHEST 1V, 11/29/2021, 15:45.? [facility], , XR CHEST 1V, 12/02/2017, 11:58. ? FINDINGS:? ? Surgical changes and devices:? None.? ? Lungs and pleura:? Lungs are clear.? Right nipple shadow.? No pleural effusions or pneumothorax.? ? Mediastinum:? Mediastinal contours appear normal.? Heart size is normal.? ? Bones and chest wall:? No suspicious bony lesions.? Callus formation at the right lateral 6th rib.? This is new in the interval since 11/29/2021.? Stable chronic left 9th rib fracture.? Overlying soft tissues appear unremarkable.? ? IMPRESSION:? Suspect right lateral 6th rib fracture, new in the interval since November 2021. ? ? Dictated by: Frank Moreno M.D. on 01/30/2022 at 13:11 ? ? Approved by: Frank Moreno M.D. on 01/30/2022 at 13:13?? ECG Data Attestation: I personally reviewed and interpreted this ECG as follows: Interpretation: Sinus rhythm frequent PVCs, rate 83 CA 160 QRS of 138 QTC 459, left axis deviation, left bundle-branch block. Patient has prior from 11/29/2021 which shows left bundle-branch block with no acute or dynamic changes. MDM Narrative Medical decision making narrative: This is a 76-year-old female with an episode of chest pain prior that had resolved. She went to her primary care for a prescheduled appointment. Patient does have cardiac risk factors and is anticoagulated on warfarin for factor 5 Leiden. She is there got her INR and appears to have been appropriately anticoagulated recently making pulmonary emboli less likely cause, she does not have any acute EKG changes today, troponin is negative was not repeated as it has been almost 24 hours since her chest discomfort. Discussed with patient would be appropriate to follow-up for cardiac time is felt appropriate for discharge for outpatient follow-up. Patient notes that her symptoms are primarily palpitations she does get these intermittently we discussed Holter monitor versus ZIO patch ray care can help set her up with as well. Discharge Plan Departure Patient Disposition: Home Clinical Impression: Palpitations, Left bundle branch block Instructions: DI for Palpitations Activity Restrictions/Additional Instructions: Please follow-up with your primary care physician. If you continued to have persistent palpitations you may need a Holter monitor or possibly stress testing in the future. If you notice that your heart rate is very slow or that your blood pressure is low at home they may need to decrease her metoprolol dose. Please return for rapidly worsening symptoms, passing out, new chest pain, shortness of breath, persistent fast or very slow heartbeat, recurrent dizziness or new swelling in her extremities. Prescriptions: No Action methylprednisolone 4 mg tablets,dose pack See Rx Instructions PO PER PKG DIR Qty: 21 0RF Rx Instructions: PO PER PKG DIR risedronate 35 MG tablet,delayed release (DR/EC) 35 mg PO QWEEK Qty: 0 Label Comments: mondays atorvastatin [Lipitor] 10 mg tablet 10 mg PO BEDTIME Qty: 90 3RF famotidine 20 mg tablet See Rx Instructions .ROUTE .COMPLEX Qty: 180 3RF Dose Instruction: TAKE ONE TABLET BY MOUTH TWICE DAILY for GERD Rx Instructions: TAKE ONE TABLET BY MOUTH TWICE DAILY FOR GERD acyclovir 400 mg tablet 400 mg PO TID PRN (Reason: Cold Sores) Qty: 30 2RF alprazolam [Xanax] 0.5 mg tablet 0.5 mg PO PRN PRN (Reason: flight and dental anxiety) Qty: 10 0RF metoprolol tartrate 25 mg tablet See Rx Instructions .ROUTE .COMPLEX Qty: 180 3RF Dose Instruction: TAKE ONE TABLET BY MOUTH TWICE DAILY FOR BLOOD PRESSURE Rx Instructions: TAKE ONE TABLET BY MOUTH TWICE DAILY FOR BLOOD PRESSURE warfarin 10 mg tablet See Rx Instructions PO .COMPLEX Rx Instructions: 5 mg Saturday and 10 mg all other days, or as directed calcium citrate 250 mg calcium Tablet 250 mg PO DAILY cholecalciferol (vitamin D3) [Vitamin D3] 1,000 unit Tablet 1,000 unit PO DAILY sodium fluoride-pot nitrate 1.1-5 % paste 1 applic Dental DAILY cyclobenzaprine 10 mg tablet 10 mg PO TID PRN (Reason: muscle spasm) Qty: 14 0RF hydrocodone-acetaminophen 5-325 mg tablet 1 tab PO Q4-6H PRN (Reason: pain) Qty: 10 0RF methylprednisolone [Medrol (Roni)] 4 mg tablets,dose pack See Rx Instructions .ROUTE .COMPLEX Qty: 21 0RF Rx Instructions: orally per package directions Referrals: Isabel Cummins ARNP [Primary Care Provider] - Juanjose Masters MD [Physician] - Visit Report Forms: Patient Portal/API
[2022-01-30 14:00] VITALS: BP 144/65; PULSE 59
[2022-01-30 14:30] VITALS: BP 121/60; PULSE 53; O2SAT 98
== END 2022-01-30 15:05 | disposition home or self-care (01) ==
PROVIDERS: Emergency Provider Emergency Medicine; PCP Nurse Practitioner
DX: I44.7 Left bundle-branch block, unspecified (principal); R00.2 Palpitations; Z79.01 Long term (current) use of anticoagulants
CPT/HCPCS: 36415; 71045; 80053; 82550; 83690; 83735; 83880; 84484; 85025; 85610; 85730; 93005; 93010; 99283; 99284

== ENCOUNTER → 2022-02-01 15:03 | Outpatient (CLI) | payer MEDICARE, BC, SELFPAY ==
--- NOTE | 2022-02-15 10:30 | P.HOLT.S_ITS ---
Transitional Living Specialist Report Referral & Results Date Patient Seen: 02/01/22 Requesting provider: Isabel Cummins Indication: Palpitations Duration of monitoring (days): 7 Diary information: There were 12 patient triggered events and 11 patient diary entries All 23 of these patient events were variably associated with (within 45 seconds) sinus rhythm, PACs, and SVT Data: Minimum heart rate identified was 43 beats per minute at 02:55 on 02/02/2022 Maximum sinus heart rate was 135 beats per minute at 07:27 on 02/07/2022 Maximum overall heart rate was 190 beats per minute at 12:39 on 02/02/2022 during a run of SVT Less than 1% of identified beats were ventricular or supraventricular ectopic in origin, which would classify them as rare. There were 28 runs of SVT with the fastest being the 4 beat run at the above rate of 190 beats per minute the longest lasting 10.7 seconds No episodes of atrial fibrillation or pauses of 3 seconds or longer were identified on this study Impression: 6+ day court monitor demonstrating rare ventricular and supraventricular ectopy. Based on patient events most likely source of sense of palpitations be supraventricular ectopy. There also very rare very brief runs of SVT that may also be producing symptoms No more serious dysrhythmias were identified on this study Clinical correlation suggested
== END ==
PROVIDERS: PCP Nurse Practitioner; Referring Provider Nurse Practitioner; Visit Provider Nurse Practitioner
DX: R00.2 Palpitations (principal); I44.7 Left bundle-branch block, unspecified; R42 Dizziness and giddiness
CPT/HCPCS: 93242; 93244

== ENCOUNTER → 2022-02-22 11:44 | Outpatient (CLI) | payer MEDICARE, BC, SELFPAY ==
[2022-02-22 14:21] LABS: INR 3.9 (0.9-1.3); Prothrombin Time 45.4 SECONDS (10.1-12.7)
== END ==
PROVIDERS: PCP Nurse Practitioner; Referring Provider Nurse Practitioner; Visit Provider Nurse Practitioner
DX: Z79.01 Long term (current) use of anticoagulants (principal)
CPT/HCPCS: 36415; 85610

== ENCOUNTER → 2022-02-27 13:05 | Outpatient (CLI) | payer MEDICARE, BC, SELFPAY ==
[2022-02-27 16:46] LABS: INR 1.7 (0.9-1.3); Prothrombin Time 19.9 SECONDS (10.1-12.7)
== END ==
PROVIDERS: PCP Nurse Practitioner; Referring Provider Nurse Practitioner; Visit Provider Nurse Practitioner
DX: Z79.01 Long term (current) use of anticoagulants (principal)
CPT/HCPCS: 36415; 85610

== ENCOUNTER → 2022-04-09 08:42 | Outpatient (CLI) | payer MEDICARE, BC, SELFPAY ==
--- NOTE | 2022-04-09 | DI.NM.S_ITS ---
PROCEDURE: NM RAND PERF SPECT R&S PHARM Rest and pharmacological stress myocardial perfusion SPECT with gated imaging and ejection fraction RADIOPHARMACEUTICAL: 11.5 mCi Tc-99m tetrafosmin IV at rest and 25.6 mCi Tc-99m tetrafosmin IV at peak effect of pharmacological stress. A [id number] was performed. INDICATIONS: Left bundle-branch block, unspecified TECHNIQUE: Radiopharmaceutical was injected at peak stress test, and also at rest. SPECT images were obtained. SPECT myocardial perfusion images were displayed in short axis, horizontal long axis, and vertical long axis views. Gated images were reviewed using Alma Johns software. COMPARISON: None. CARDIAC STRESS: A pharmacologic stress test was performed under the supervision of an attending staff, using an infusion of regadenoson. Hemodynamic data: There is normal blood pressure and heart rate response to pharmacologic stress. Symptoms: The patient denied anginal chest pain. EKG: No diagnostic changes of ischemia; rare PVCs. FINDINGS: Raw data: There is good myocardial uptake of radiotracer. No significant motion artifacts. Htdj-ve-yjqxj ratio is 0.34 (normal is less than 0.38 for tetrafosmin tracer). Left ventricle function: Gated images are of poor quality. Diffuse hypokinesis. No transient ischemic dilation; TID is 1.09 (normal less than 1.3). Left ventricle resting end diastolic volume is 51 mL. Left ventricle stress ejection fraction is calculated at 19%; normal range is above 45%. Myocardial perfusion: There is normal distribution of activity in the right and left ventricular myocardium. No fixed or reversible perfusion defects. IMPRESSION: Likely low risk study. No fixed or reversible perfusion defects The gated images are of poor quality and suggest diffuse hypokinesis with a reduced ejection fraction however upon review of the medical record, the patient had an echocardiogram 02/21/2022 showing normal LV function which appears more accurate. Dictated by: Nini Ferrer D.O. on 04/09/2022 at 16:36 Approved by: Nini Ferrer D.O. on 04/09/2022 at 16:43
[2022-04-09 10:15] LABS: COVID19 -Nasal RAPID Negative (Negative)
== END ==
PROVIDERS: PCP Nurse Practitioner; Referring Provider Internal Medicine Cardiovascular Disease; Visit Provider Internal Medicine Cardiovascular Disease
DX: I44.7 Left bundle-branch block, unspecified (principal); Z20.822 Contact with and (suspected) exposure to COVID-19
CPT/HCPCS: 78452; 87635; 93017; A9502; J2785

== ENCOUNTER → 2022-05-21 12:46 | Outpatient (CLI) | payer MEDICARE, BC, SELFPAY ==
--- NOTE | 2022-05-21 12:48 | DI.RAD.S_ITS ---
PROCEDURE: XR FOOT LT MIN 3V INDICATIONS: Left foot pain TECHNIQUE: 3 views of the foot were acquired. COMPARISON: [facility], , FOOT 3V RIGHT, 09/03/2016, 11:00. FINDINGS: Bones: No fractures or dislocations. No suspicious bony lesions. Periarticular osteophyte formation at the 1st metatarsophalangeal joint. Soft tissues: No tibiotalar joint effusion. Achilles tendon appears normal. IMPRESSION: No acute fracture. No osseous lesion. If symptoms and/or clinical suspicion for pathology persist, further assessment with repeat, or advanced imaging (e.g., CT, MRI, or bone scan) may be helpful for further assessment. Dictated by: Priya Gotti M.D. on 05/21/2022 at 13:50 Transcribed by: LUAN on 05/21/2022 at 13:51 Approved by: Priya Gotti M.D. on 05/21/2022 at 16:34
== END ==
PROVIDERS: PCP Nurse Practitioner; Referring Provider Nurse Practitioner Family; Visit Provider Nurse Practitioner Family
DX: M79.672 Pain in left foot (principal)
CPT/HCPCS: 73630

== ENCOUNTER → 2022-05-28 14:10 | Outpatient (CLI) | payer MEDICARE, BC, SELFPAY ==
--- NOTE | 2022-05-28 14:12 | DI.MG.S_ITS ---
BILATERAL DIGITAL SCREENING MAMMOGRAM 3D/2D WITH CAD: 05/28/2022 CLINICAL: Routine screening. Family history of breast cancer. Comparison is made to exams dated: 05/23/2021 mammogram, 04/01/2020 mammogram, 02/27/2019 mammogram, and 02/26/2018 mammogram - [facility]. There are scattered areas of fibroglandular density in both breasts (category b / 25%-50% glandular tissue). Current study was also evaluated with a Computer Aided Detection (CAD) system. No significant masses, calcifications, or other findings are seen in either breast. There has been no significant interval change. IMPRESSION: NEGATIVE There is no mammographic evidence of malignancy. A 1 year screening mammogram is recommended. Based on the Tyrer Cuzick model (a risk assessment model) the patient's lifetime risk is 2.8% and her 10 year risk is 2.5%. According to the ACR, ACS, and NCCN guidelines, an annual breast MRI exam along with mammogram is recommended if the patient's lifetime risk is 20% or greater. This exam was interpreted at Station ID: [id number]. NOTE: For mammograms, a report in lay terms will be sent to the patient. Approximately 15% of breast malignancies will not be visualized mammographically. In the management of a palpable breast mass, a negative mammogram must not discourage biopsy of a clinically suspicious lesion. Electronically Signed By: Frank victor/karen:05/28/2022 17:27:07 letter sent: Normal Exam ACR BI-RADS Category 1: Negative [id number]
== END ==
PROVIDERS: PCP Nurse Practitioner; Referring Provider Nurse Practitioner; Visit Provider Nurse Practitioner
DX: Z12.31 Encounter for screening mammogram for malignant neoplasm of breast (principal); Z80.3 Family history of malignant neoplasm of breast
CPT/HCPCS: 77063; 77067

== ENCOUNTER → 2022-08-30 08:43 | Outpatient (CLI) | payer MEDICARE, BC, SELFPAY | PROVIDERS: PCP Nurse Practitioner; Visit Provider Registered Nurse | DX: R30.0 Dysuria (principal) | CPT/HCPCS: 87077; 87086; 87186 ==

== ENCOUNTER 2022-09-22 16:58 | Emergency (ER) | payer MEDICARE, BC, SELFPAY ==
[2022-09-22 17:08] VITALS: BP 157/80; PULSE 70; RESP 16; TEMP 36.6; O2SAT 98; BMI 21.2
--- NOTE | 2022-09-22 17:08 | DI.CT.S_ITS ---
PROCEDURE: CT HEAD/BRAIN WO CON INDICATIONS: fall backwards hit head on thinners TECHNIQUE: Noncontrast 4.5 mm thick angled axial sections acquired from the foramen magnum to the vertex, with coronal and sagittal reformats. For radiation dose reduction, the following was used: automated exposure control, adjustment of mA and/or kV according to patient size. COMPARISON: None. FINDINGS: Image quality: Excellent. CSF spaces: Basal cisterns are patent. No extra-axial fluid collections. The ventricles are symmetric in size and shape. Brain: No intracranial bleeds or masses. There is cerebral volume loss for age, with resultant ventricular and sulcal prominence. There are periventricular and deep white matter chronic small vessel ischemic changes. There is intracranial internal carotid artery atherosclerosis. Skull and face: Calvarium and visualized facial bones appear intact, without suspicious lesions. Sinuses: Visualized sinuses and mastoids are clear. IMPRESSION: 1. CT head without acute intracranial abnormalities or acute calvarial fractures. 2. Age-related senescent changes and sequela of chronic small vessel ischemic disease. Dictated by: Yuan Hubbard M.D. on 09/22/2022 at 17:31 Approved by: Yuan Hubbard M.D. on 09/22/2022 at 17:32
--- NOTE | 2022-09-22 17:08 | DI.CT.S_ITS ---
PROCEDURE: CT CERVICAL SPINE WO CON INDICATIONS: fall backwards hit head on thinners TECHNIQUE: Noncontrast 3 mm thick sections acquired from the skull base to the T4 level. Sagittal and coronal reformats were then constructed. For radiation dose reduction, the following was used: automated exposure control, adjustment of mA and/or kV according to patient size. COMPARISON: None. FINDINGS: Image quality: Excellent. Bones: No acute fractures or dislocations. No acute compression fractures of the vertebral bodies. Craniocervical junction is intact. C1-C2 relationship is preserved. Visualized superior ribs are intact. Moderate-severe multilevel cervical spondylosis most severe at C5-6 and C6-7. Normal alignment. Soft tissues: Prevertebral soft tissues are normal in thickness. No paravertebral hematomas. No apical pneumothoraces. Small amount of effusion noted in the left mastoid air cells. No osseous erosions associated with effusions. IMPRESSION: CT cervical spine without acute fracture or traumatic malalignment. Moderate-severe multilevel cervical spondylosis. Dictated by: Yuan Hubbard M.D. on 09/22/2022 at 17:32 Approved by: Yuan Hubbard M.D. on 09/22/2022 at 17:35
--- NOTE | 2022-09-22 17:11 | DI.RAD.S_ITS ---
PROCEDURE: XR CHEST 2V INDICATIONS: fall TECHNIQUE: 2 views of the chest were acquired. COMPARISON: [facility], CR, XR CHEST 1V, 01/30/2022, 12:56. FINDINGS: Surgical changes and devices: None. Lungs and pleura: Lungs are clear. No pleural effusions or pneumothorax. Mediastinum: Mediastinal contours are normal. Heart size is normal. Bones and chest wall: No suspicious bony abnormalities. Soft tissues appear unremarkable. IMPRESSION: Stable radiographic evaluation of the chest without acute cardiopulmonary abnormalities or focal airspace disease. Dictated by: Yuan Hubbard M.D. on 09/22/2022 at 18:10 Approved by: Yuan Hubbard M.D. on 09/22/2022 at 18:11
--- NOTE | 2022-09-22 17:12 | PC.NURSE ---
Dr Fields aware
--- NOTE | 2022-09-22 18:11 | ED.FALL ---
HPI - Fall General Chief Complaint: Fall Stated Complaint: fell and hit head on concrete on warfran Time Seen by Provider: 09/22/22 17:11 Source: patient Mode of arrival: Ambulatory History of Present Illness HPI Narrative: Patient is a 77 year old female history of factor 5 Leiden on warfarin presenting today after mechanical fall. She says she was out in the yd covering up with chips the plastic tarp she somehow slipped on the plastic type falling backwards hitting her head. She got up immediately she did not lose consciousness. No numbness tingling weakness nausea or vomiting. She came in immediately because of the warfarin and drove herself. She is a little bit of back pain but does not currently want medication she has it at home. Related Data Home Medications Medication Instructions Recorded Confirmed sodium fluoride 1.1 %-potassium 1 applic dental DAILY 12/02/17 08/30/22 nitrate 5 % dental paste calcium citrate 250 mg PO DAILY 05/12/18 08/30/22 cholecalciferol (vitamin D3) 25 1,000 unit PO DAILY 05/12/18 08/30/22 mcg (1,000 unit) tablet (Vitamin D3) warfarin 10 mg tablet See Rx Instructions PO .COMPLEX 01/09/22 08/30/22 Previous Rx's Medication Instructions Recorded alprazolam 0.5 mg tablet (Xanax) 0.5 mg PO DAILY PRN flight and 04/20/16 dental anxiety #10 tabs metoprolol tartrate 25 mg tablet See Rx Instructions .Route 01/29/22 .COMPLEX #180 tabs atorvastatin 10 mg tablet (Lipitor) 10 mg PO BEDTIME #90 tabs 02/05/22 famotidine 20 mg tablet See Rx Instructions .Route 02/13/22 .COMPLEX #180 tabs acyclovir 400 mg tablet 400 mg PO TID PRN Cold Sores #30 06/19/22 tabs phenazopyridine 200 mg tablet 200 mg PO TID PRN pain 6 doses #6 08/30/22 (Pyridium) tabs Allergies Allergy/AdvReac Type Severity Reaction Status Date / Time No Known Drug Allergies Allergy Verified 09/22/22 17:11 Review of Systems Review of Systems ROS Unobtainable: All systems reviewed & are unremarkable except as noted in HPI and below Patient History Medical History Anticoagulated on warfarin Anxiety (1970) Anxiety (Unknown) Arthritis Atrial fibrillation (2004) Betancourt's cyst Cataracts, bilateral (Unknown) Chickenpox (~1950) Difficulty swallowing Diverticular disease (2009) Effusion of right knee joint Esophageal dysphagia Fractures (2006) Gastric reflux Heberden's nodes of both hands Herpes (2002) Hyperlipemia (Unknown) Laceration of ear Left bundle branch block skilled nursing current use of anticoagulant therapy Measles (~195) Mumps (~1954) On beta ildefonso at home Osteoarthritis (2001) Osteopenia (Unknown) Osteoporosis (Unknown) Other laborer marine terminal (current) drug therapy Right knee pain Sprain of medial collateral ligament of knee Tricompartment osteoarthritis of right knee Wears glasses Surgical History History of hip replacement History of hip replacement Status post colostomy Status post hernia repair Status post hernia repair Family History Father Hypertension Mental health problem Mother Hypertension Hyperlipidemia Social History household members: none Smoking Status: Never smoker alcohol intake: former Smoking Status: Never smoker alcohol intake frequency: other Substance Use Type: does not use Exam Initial Vital Signs Initial Vital Signs: Vital Signs Temperature 97.9 F 09/22/22 17:08 Pulse Rate 70 09/22/22 17:08 Respiratory Rate 16 09/22/22 17:08 Blood Pressure 157/80 H 09/22/22 17:08 Pulse Oximetry 98 09/22/22 17:08 Oxygen Delivery Method Room Air 09/22/22 17:08 GENERAL: Alert pleasant well-appearing 72-year-old female HEENT: Head atraumatic,EOMI, pupils reactive, face symmetric, moist mucous membranes NECK: No vertebral tenderness no step-off CARDIOVASCULAR: Regular rate and rhythm without murmurs, rubs or gallops. RESPIRATORY: Breath sounds equal bilaterally, no wheezes rales or rhonchi. ABDOMEN: Soft, nontender. Normoactive bowel sounds all 4 quadrants. No guarding or rebound. BACK: No vertebral tenderness no step-off no abrasion EXTREMITIES: Normal range of motion, no clubbing or edema. Neurovascularly intact NEUROLOGICAL: Alert and oriented x4.Normal gait and speech. Cranial nerves II through XII grossly intact. Career Development Manager strength equal bilaterally SKIN: Warm, dry, no laceration, no petechiae, no rashes or lesions. Course Orders Ordered: ED Orders 09/22/22 17:08 CT cervical spine wo con Stat CT head/brain wo con Stat 09/22/22 17:11 Chest [XR chest 2V] Stat Vital Signs Vital signs: Vital Signs - 8 hr 09/22/22 17:08 Temperature 97.9 F Pulse Rate 70 Respiratory Rate 16 Blood Pressure 157/80 H Pulse Oximetry 98 Oxygen Delivery Method Room Air MDM - Fall Imaging Data CT - cervical spine: Radiologist's Impression: PROCEDURE:? CT CERVICAL SPINE WO CON ? INDICATIONS:? fall backwards hit head on thinners ? TECHNIQUE:? Noncontrast 3 mm thick sections acquired from the skull base to the T4 level.? Sagittal and coronal reformats were then constructed.? For radiation dose reduction, the following was used:? automated exposure control, adjustment of mA and/or kV according to patient size.? ? COMPARISON:? None. ? FINDINGS:? Image quality:? Excellent.? ? Bones:? No acute fractures or dislocations.? No acute compression fractures of the vertebral bodies. Craniocervical junction is intact. C1-C2 relationship is preserved. Visualized superior ribs are intact.? Moderate-severe multilevel cervical spondylosis most severe at C5-6 and C6-7.? Normal alignment. ? ? Soft tissues:? Prevertebral soft tissues are normal in thickness.? No paravertebral hematomas.? No apical pneumothoraces.? Small amount of effusion noted in the left mastoid air cells.? No osseous erosions associated with effusions.? ? ? IMPRESSION:? CT cervical spine without acute fracture or traumatic malalignment. Moderate-severe multilevel cervical spondylosis. ? ? ? Dictated by: Yuan Hubbard M.D. on 09/22/2022 at 17:32? CT scan - head: Radiologist's Impression: PROCEDURE:? CT HEAD/BRAIN WO CON ? INDICATIONS:? fall backwards hit head on thinners ? TECHNIQUE:? Noncontrast 4.5 mm thick angled axial sections acquired from the foramen magnum to the vertex, with coronal and sagittal reformats.? For radiation dose reduction, the following was used:? automated exposure control, adjustment of mA and/or kV according to patient size.? ? COMPARISON:? None. ? FINDINGS:? Image quality:? Excellent.? ? CSF spaces:? Basal cisterns are patent.? No extra-axial fluid collections.? The ventricles are symmetric in size and shape.? ? Brain:? No intracranial bleeds or masses.? There is cerebral volume loss for age, with resultant ventricular and sulcal prominence.? There are periventricular and deep white matter chronic small vessel ischemic changes.? There is intracranial internal carotid artery atherosclerosis.? ? Skull and face:? Calvarium and visualized facial bones appear intact, without suspicious lesions.? ? Sinuses:? Visualized sinuses and mastoids are clear.? ? IMPRESSION:? 1. CT head without acute intracranial abnormalities or acute calvarial fractures. ? 2. Age-related senescent changes and sequela of chronic small vessel ischemic disease. ? Dictated by: Yuan Hubbard M.D. on 09/22/2022 at 17:31 ? ? Chest x-ray: Radiologist's Impression: PROCEDURE:? XR CHEST 2V ? INDICATIONS:? fall ? TECHNIQUE:? 2 views of the chest were acquired.? ? COMPARISON:? [facility], , XR CHEST 1V, 01/30/2022, 12:56. ? FINDINGS:? ? Surgical changes and devices:? None.? ? Lungs and pleura:? Lungs are clear.? No pleural effusions or pneumothorax.? ? Mediastinum:? Mediastinal contours are normal.? Heart size is normal.? ? Bones and chest wall:? No suspicious bony abnormalities.? Soft tissues appear unremarkable.? ? IMPRESSION:? Stable radiographic evaluation of the chest without acute cardiopulmonary abnormalities or focal airspace disease. ? Dictated by: Yuan Hubbard M.D. on 09/22/2022 at 18:10 MDM Narrative Medical decision making narrative: Patient is a 77-year-old female on warfarin for factor 5 presenting after mechanical fall. She is no focal deficits no nausea vomiting or weakness. Head CT, C-spine CT and chest x-ray are negative. She has pain medication at home and she has to drive herself shows features not want any today. Discussed strict return precautions. At this time with a mechanical fall no other signs or symptoms no need for any further workup is indicated. Patient is ambulatory. Discharge Plan Departure Patient Disposition: Home Clinical Impression: Fall, Closed head injury Instructions: DI for Closed Head Injury Activity Restrictions/Additional Instructions: *You have been diagnosed with closed head injury, fall *What to do: At this time take it easy expect to be sore for the next couple of days. Increase activity as tolerated light activities encouraged no strenuous activity or heavy lifting *Continue to take medications as directed *Follow up with your primary care provider in 2-3 days or call [phone] *Return to ER if you should have increasing headache nausea vomiting numbness tingling weakness or any new, worsening or concerning symptoms Prescriptions: No Action phenazopyridine [Pyridium] 200 mg tablet 200 mg PO TID PRN (Reason: pain) Qty: 6 0RF metoprolol tartrate 25 mg tablet See Rx Instructions .ROUTE .COMPLEX Qty: 180 3RF Dose Instruction: TAKE ONE TABLET BY MOUTH TWICE DAILY FOR BLOOD PRESSURE Rx Instructions: TAKE ONE TABLET BY MOUTH TWICE DAILY FOR BLOOD PRESSURE atorvastatin [Lipitor] 10 mg tablet 10 mg PO BEDTIME Qty: 90 3RF alprazolam [Xanax] 0.5 mg tablet 0.5 mg PO DAILY PRN (Reason: flight and dental anxiety) Qty: 10 2RF Rx Instructions: Max dose 1 per day acyclovir 400 mg tablet 400 mg PO TID PRN (Reason: Cold Sores) Qty: 30 2RF warfarin 10 mg tablet See Rx Instructions PO .COMPLEX Rx Instructions: 5 mg Saturday and 10 mg all other days, or as directed famotidine 20 mg tablet See Rx Instructions .ROUTE .COMPLEX Qty: 180 3RF Dose Instruction: TAKE ONE TABLET BY MOUTH TWICE DAILY for GERD Rx Instructions: TAKE ONE TABLET BY MOUTH TWICE DAILY FOR GERD calcium citrate 250 mg calcium Tablet 250 mg PO DAILY cholecalciferol (vitamin D3) [Vitamin D3] 1,000 unit Tablet 1,000 unit PO DAILY sodium fluoride-pot nitrate 1.1-5 % paste 1 applic Dental DAILY Referrals: Isabel Cummins ARNP [Primary Care Provider] - Stand Alone Forms: Patient Portal/API
== END 2022-09-22 18:22 | disposition home or self-care (01) ==
PROVIDERS: Emergency Provider Emergency Medicine; PCP Nurse Practitioner
DX: S09.90XA Unspecified injury of head, initial encounter (principal); R07.89 Other chest pain; W01.0XXA Fall on same level from slipping, tripping and stumbling without subsequent striking against object, initial encounter; Z79.01 Long term (current) use of anticoagulants
CPT/HCPCS: 70450; 71046; 72125; 99284

== ENCOUNTER 2022-09-25 12:18 | Emergency (ER) | payer MEDICARE, BC, SELFPAY ==
[2022-09-25 12:25] VITALS: BP 147/74; PULSE 64; RESP 15; TEMP 36.2; O2SAT 98; BMI 21.4
[2022-09-25 13:05] LABS: INR 3.8 (0.9-1.3); Prothrombin Time 43.9 SECONDS (10.1-12.7)
[2022-09-25 13:07] LABS: Add Manual Diff / Slide Review NO; Basophils Absolute Auto 0 /uL (0-100); Basophils Percent Auto 0.6 % (0-2); Eosinophils Absolute Auto 200 /uL (0-450); Eosinophils Percent Auto 2.9 % (2-4); Hematocrit 39.4 % (36-46); Hemoglobin 13.1 g/dL (12.0-16.0); Lymphocytes Absolute Auto 1500 /uL (1100-4500); Lymphocytes Percent Auto 19.3 % (25-40); Mean Corpuscular HGB Conc 33.2 % (30-36); Mean Corpuscular Volume 90.4 fL (80-100); Monocytes Absolute Auto 700 /uL (0-900); Neutrophils Absolute Auto 5300 /uL (1500-7000); Neutrophils Percent Auto 68.2 % (50-75); Platelet Count 218 X10^3/uL (150-400); Red Blood Cell Count 4.36 X10^6/uL (4.0-5.2); White Blood Cell Count 7.7 X10^3/uL (4.5-11.0)
[2022-09-25 13:14] LABS: Alanine Aminotransferase 53 IU/L (<35); Albumin 4.4 g/dL (3.5-5.0); Albumin Globulin Ratio 1.4 (1.0-2.8); Alkaline Phosphatase 75 U/L (38-126); Aspartate Aminotransferase 70 IU/L (14-36); BUN Creatinine Ratio 15.2 (6-22); Bilirubin Total 0.5 mg/dL (0.2-1.3); Blood Urea Nitrogen 14 mg/dL (7-17); Carbon Dioxide 28 mmol/L (22-32); Chloride 103 mmol/L (98-107); Estimated Glomerular Filt Rate > 60 mL/min (>60); Globulin 3.2 g/dL (1.7-4.1); Glucose 95 mg/dL (80-110); HEMOLYSIS < 15 (0-50); Lipase 110 U/L (23-300); Potassium 4.6 mmol/L (3.4-5.1); Sodium 138 mmol/L (137-145); Total Protein 7.6 g/dL (6.3-8.2)
[2022-09-25 13:16] LABS: Bacteria Urine None Seen; RBC Urine 1-5/HPF (0-5/HPF); WBC Urine None Seen (0-5/HPF)
[2022-09-25 13:17] LABS: Culture Indicated Urine Cult Not Indicated; Squamous Epithelial Cell Urine 1-5 /HPF (0-5/HPF)
--- NOTE | 2022-09-25 14:40 | DI.CT.S_ITS ---
PROCEDURE: CT ABDOMEN PELVIS W CON INDICATIONS: LLQ pain TECHNIQUE: After the administration of oral and IV contrast, axial sections were acquired from the lung bases to the pubic symphysis. Coronal and sagittal reformats were performed. For radiation dose reduction, the following was used: automated exposure control, adjustment of mA and/or kV according to patient size. COMPARISON: None. FINDINGS: Image quality: Portions of the lower pelvis are suboptimally evaluated secondary to metallic streak artifact from bilateral hip arthroplasties. Lung bases: Unremarkable. Heart: No significant findings. ABDOMEN: Liver: Liver measures 16.9 cm with steatosis. Gallbladder: Unremarkable. Biliary ducts: Unremarkable. Pancreas: Unremarkable. Spleen: Unremarkable. Adrenal Glands: Unremarkable. Kidneys and Ureters: Unremarkable. Stomach and Bowel: Stomach, small bowel loops, and colon are nonobstructive. Colonic diverticula are present. There is focal descending colonic loop of thickening with pericolonic inflammation. No abscess. Peritoneum: No abnormal intraperitoneal fluid. No free air. Ventral Wall: No hernia. Abdominal Nodes: No retroperitoneal or mesenteric adenopathy by size criteria. Vessels: Aorta and inferior vena cava are normal in size. PELVIS: Pelvic Organs: Unremarkable. Bladder: Unremarkable. Pelvic Nodes: No enlarged lymph nodes. Miscellaneous: No inguinal hernias are seen. Bones: Unremarkable. IMPRESSION: Focal loop of descending colon with thickening and inflammatory change most consistent with colitis secondary to diverticulitis. No abscess. Dictated by: Imani Pretty M.D. on 09/25/2022 at 16:07 Approved by: Imani Pretty M.D. on 09/25/2022 at 16:09
--- NOTE | 2022-09-25 14:45 | PC.NURSE ---
Pt requesting something more mild then morphine. Kit Shant notified and changed to tylenol
[2022-09-25] MEDS: ACETAMINOPHEN 325 MG TABLET 975 MG PO (14:50)
[2022-09-25 14:51] VITALS: BP 156/75; PULSE 76; RESP 16; O2SAT 97
--- NOTE | 2022-09-25 15:46 | ED.ABDPAIN ---
HPI - Abdominal Pain <Kit Bran PA-C - Last Filed: 09/25/22 16:45> General Chief Complaint: Abdominal Pain Stated Complaint: Abd Pain Time Seen by Provider: 09/25/22 13:55 Source: patient Mode of arrival: Ambulatory History of Present Illness HPI narrative: 77-year-old female with past medical history factor 5 Leiden, hypothyroidism, anticoagulated on warfarin, anxiety, hypertension, hyperlipidemia, atrial fibrillation, acid reflux presents to the ED with 3 days of left lower quadrant pain. Patient was seen in the ED on 09/22/2022 for a fall on thinners, discharged home. Patient states that her abdominal pain started the day after. Patient has a distant history of diverticulitis, which the patient states perforated and she had surgical intervention for it. Patient denies fever, chills, chest pain, shortness of breath, nausea, vomiting, dysuria, diarrhea, lightheadedness, dizziness, syncope. Patient's last bowel movement was earlier today and was normal. Related Data Home Medications Medication Instructions Recorded Confirmed sodium fluoride 1.1 %-potassium 1 applic dental DAILY 12/02/17 09/25/22 nitrate 5 % dental paste calcium citrate 250 mg PO DAILY 05/12/18 09/25/22 cholecalciferol (vitamin D3) 25 1,000 unit PO DAILY 05/12/18 09/25/22 mcg (1,000 unit) tablet (Vitamin D3) warfarin 10 mg tablet See Rx Instructions PO .COMPLEX 01/09/22 09/25/22 Previous Rx's Medication Instructions Recorded alprazolam 0.5 mg tablet (Xanax) 0.5 mg PO DAILY PRN flight and 04/20/16 dental anxiety #10 tabs metoprolol tartrate 25 mg tablet See Rx Instructions .Route 01/29/22 .COMPLEX #180 tabs atorvastatin 10 mg tablet (Lipitor) 10 mg PO BEDTIME #90 tabs 02/05/22 famotidine 20 mg tablet See Rx Instructions .Route 02/13/22 .COMPLEX #180 tabs acyclovir 400 mg tablet 400 mg PO TID PRN Cold Sores #30 06/19/22 tabs phenazopyridine 200 mg tablet 200 mg PO TID PRN pain 6 doses #6 08/30/22 (Pyridium) tabs amoxicillin 875 mg-potassium 1 tab PO Q8H 5 days #15 tabs 09/25/22 clavulanate 125 mg tablet ciprofloxacin HCl 500 mg tablet 500 mg PO Q12H 5 days #10 tabs 09/25/22 metronidazole 500 mg tablet 500 mg PO Q8H 5 days #15 tabs 09/25/22 Allergies Allergy/AdvReac Type Severity Reaction Status Date / Time No Known Drug Allergies Allergy Verified 09/25/22 11:38 Review of Systems <Kit Bran PA-C - Last Filed: 09/25/22 16:45> Review of Systems ROS Unobtainable: All systems reviewed & are unremarkable except as noted in HPI and below Constitutional Constitutional: Denies chills, Denies fatigue, Denies fever(s), Denies frequent falls, Denies lethargy and Denies weakness Eyes Eyes: Denies change in vision, Denies eye discharge, Denies irritation and Denies loss of vision ENT Ears, Nose, Mouth, and Throat: Denies change in voice, Denies dizziness, Denies neck pain, Denies sore throat and Denies throat swelling Cardiovascular Cardiovascular: Denies chest pain, Denies irregular heart rhythm, Denies lightheadedness, Denies palpitations, Denies dyspnea, Denies dyspnea on exertion and Denies orthopnea Respiratory Respiratory: Denies cough, Denies dyspnea, Denies dyspnea on exertion and Denies wheezing Gastrointestinal Gastrointestinal: Reports abdominal pain, Denies change in bowel habits, Denies diarrhea, Denies nausea and Denies vomiting Genitourinary Genitourinary: Denies hematuria, Denies flank pain, Denies urinary incontinence and Denies urinary urgency Musculoskeletal Musculoskeletal: Denies back pain, Denies muscle weakness, Denies neck pain, Denies numbness and Denies tingling Integumentary/Breasts Skin/Breast: Denies pruritus, Denies erythema, Denies rash and Denies wounds Neurologic Neurologic: Denies behavioral changes, Denies confusion, Denies dizziness, Denies frequent falls, Denies loss of vision, Denies numbness, Denies tingling and Denies weakness Psychiatric Psychiatric: Denies anxiety, Denies behavioral changes, Denies confusion, Denies depression, Denies homicidal ideation and Denies suicidal ideation Endocrine Endocrine: Denies fatigue, Denies flushing and Denies palpitations Hematologic/Lymphatic Hematologic/Lymphatic: Denies easy bruising Allergic/Immunologic Allergic/Immunologic: Denies urticaria, Denies throat swelling and Denies wheezing Patient History <Kit Bran PA-C - Last Filed: 09/25/22 16:45> Medical History Anticoagulated on warfarin Anxiety (1970) Anxiety (Unknown) Arthritis Atrial fibrillation (2004) Betancourt's cyst Cataracts, bilateral (Unknown) Chickenpox (~1950) Difficulty swallowing Diverticular disease (2009) Effusion of right knee joint Esophageal dysphagia Fractures (2006) Gastric reflux [place]'s nodes of both hands Herpes (2002) Hyperlipemia (Unknown) Laceration of ear 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 Measles (~1954) Mumps (~1954) On beta ildefonso at home Osteoarthritis (2001) Osteopenia (Unknown) Osteoporosis (Unknown) Other adjunct faculty for medical terminology (current) drug therapy Right knee pain Sprain of medial collateral ligament of knee Tricompartment osteoarthritis of right knee Wears glasses Surgical History History of hip replacement History of hip replacement Status post colostomy Status post hernia repair Status post hernia repair Family History Father Hypertension Mental health problem Mother Hypertension Hyperlipidemia Social History household members: none Smoking Status: Never smoker alcohol intake: former Smoking Status: Never smoker alcohol intake frequency: other Substance Use Type: does not use Exam <Kit Bran PA-C - Last Filed: 09/25/22 16:45> Narrative Exam Narrative: Const General:?cooperative, healthy appearing and comfortable [facility] Head:?normal to inspection Ears:?hearing grossly normal bilaterally Nose:?external nose normal Face and sinus:?normal facial exam and sinuses nontender Mouth:?oral mucosae normal Throat:?posterior oropharynx normal Eyes General:?appearance normal, both eyes and all related structures Neck Neck:?normal visual inspection and no lymphadenopathy noted Resp Effort & Inspection:?normal respiratory effort Auscultation:?clear to auscultation bilaterally Cardio Rate:?regular rate Rhythm:?regular rhythm GI Abdomen is soft, nondistended, exquisitely tender to palpation in the left lower quadrant. Neuro General:?patient alert, patient awake and patient oriented x3 Initial Vital Signs Initial Vital Signs: Vital Signs Temperature 97.1 F L 09/25/22 12:25 Pulse Rate 64 09/25/22 12:25 Respiratory Rate 15 09/25/22 12:25 Blood Pressure 147/74 H 09/25/22 12:25 Pulse Oximetry 98 09/25/22 12:25 Oxygen Delivery Method Room Air 09/25/22 12:25 <Jordyn Fields DO - Last Filed: 09/25/22 18:52> Initial Vital Signs Initial Vital Signs: Vital Signs Temperature 97.1 F L 09/25/22 12:25 Pulse Rate 64 09/25/22 12:25 Respiratory Rate 15 09/25/22 12:25 Blood Pressure 147/74 H 09/25/22 12:25 Pulse Oximetry 98 09/25/22 12:25 Oxygen Delivery Method Room Air 09/25/22 12:25 Course <Kit Bran PA-C - Last Filed: 09/25/22 16:45> Orders Ordered: ED Orders 09/25/22 12:42 Complete Blood Count AUTO DIFF Stat Comprehensive Metabolic Panel Stat Lipase Stat Prothrombin Time INR Stat 09/25/22 13:01 Urine Microscopic Stat 09/25/22 14:40 CT abdomen pelvis w con Stat Discontinued Medications Acetaminophen (Acetaminophen 325 Mg Tablet) 975 mg PO NOW ONE Stop: 09/25/22 14:46 Last Admin: 09/25/22 14:50 Dose: 975 mg Documented By: AMU Morphine Sulfate (Morphine 4 Mg/Ml Inj) 4 mg IV NOW ONE Stop: 09/25/22 14:42 Last Admin: 09/25/22 14:51 Dose: Not Given Documented By: AMU Ondansetron HCl (Ondansetron 4 Mg/2 Ml Inj) 4 mg IV NOW PRN PRN Reason: Nausea And Vomiting Vital Signs Vital signs: Vital Signs - 8 hr 09/25/22 12:25 09/25/22 14:51 09/25/22 16:06 Temperature 97.1 F L Pulse Rate 64 76 63 Respiratory Rate 15 16 Blood Pressure 147/74 H 156/75 H 142/68 H Pulse Oximetry 98 97 95 Oxygen Delivery Method Room Air Room Air Room Air <Jordyn Fields DO - Last Filed: 09/25/22 18:52> Orders Ordered: ED Orders 09/25/22 12:42 Complete Blood Count AUTO DIFF Stat Comprehensive Metabolic Panel Stat Lipase Stat Prothrombin Time INR Stat 09/25/22 13:01 Urine Microscopic Stat 09/25/22 14:40 CT abdomen pelvis w con Stat Discontinued Medications Acetaminophen (Acetaminophen 325 Mg Tablet) 975 mg PO NOW ONE Stop: 09/25/22 14:46 Last Admin: 09/25/22 14:50 Dose: 975 mg Documented By: AMU Morphine Sulfate (Morphine 4 Mg/Ml Inj) 4 mg IV NOW ONE Stop: 09/25/22 14:42 Last Admin: 09/25/22 14:51 Dose: Not Given Documented By: AMU Ondansetron HCl (Ondansetron 4 Mg/2 Ml Inj) 4 mg IV NOW PRN PRN Reason: Nausea And Vomiting Vital Signs Vital signs: Vital Signs - 8 hr 09/25/22 12:25 09/25/22 14:51 09/25/22 16:06 Temperature 97.1 F L Pulse Rate 64 76 63 Respiratory Rate 15 16 Blood Pressure 147/74 H 156/75 H 142/68 H Pulse Oximetry 98 97 95 Oxygen Delivery Method Room Air Room Air Room Air MDM - Abdominal Pain <Kit Bran PA-C - Last Filed: 09/25/22 16:45> Lab Data 09/25/22 12:42 09/25/22 12:42 Labs: Lab Results 09/25/22 09/25/22 09/25/22 Range/Units 12:42 12:42 12:42 WBC 7.7 (4.5-11.0) X10^3/uL RBC 4.36 (4.0-5.2) X10^6/uL Hgb 13.1 (12.0-16.0) g/dL Hct 39.4 (36-46) % MCV 90.4 (80-100) fL MCH 30.0 (26-34) PG MCHC 33.2 (30-36) % RDW 14.0 (11.6-14.8) % Plt Count 218 (150-400) X10^3/uL Neut % (Auto) 68.2 (50-75) % Lymph % (Auto) 19.3 L (25-40) % [place] % (Auto) 9.0 (3-14) % Eos % (Auto) 2.9 (2-4) % Baso % (Auto) 0.6 (0-2) % Neut # (Auto) 5300 (6686-9679) /uL Lymph # (Auto) 1500 (8749-3480) /uL [place] # (Auto) 700 (0-900) /uL Eos # (Auto) 200 (0-450) /uL Baso # (Auto) 0 (0-100) /uL PT 43.9 H (10.1-12.7) SECONDS INR 3.8 H (0.9-1.3) Sodium 138 (137-145) mmol/L Potassium 4.6 (3.4-5.1) mmol/L Chloride 103 (98-107) mmol/L Carbon Dioxide 28 (22-32) mmol/L BUN 14 (7-17) mg/dL Creatinine 0.92 (0.52-1.04) mg/dL Estimated GFR > 60 (>60) mL/min BUN/Creatinine Ratio 15.2 (6-22) Glucose 95 (80-110) mg/dL Calcium 9.0 (8.4-10.2) mg/dL Total Bilirubin 0.5 (0.2-1.3) mg/dL AST 70 H (14-36) IU/L ALT 53 H (<35) IU/L Alkaline Phosphatase 75 (38-126) U/L Total Protein 7.6 (6.3-8.2) g/dL Albumin 4.4 (3.5-5.0) g/dL Globulin 3.2 (1.7-4.1) g/dL Albumin/Globulin Ratio 1.4 (1.0-2.8) Lipase 110 (23-300) U/L Urine RBC (0-5/HPF) Urine WBC (0-5/HPF) Ur Squamous Epith Cells (0-5/HPF) Urine Bacteria (None) Ur Culture Indicated? 09/25/22 Range/Units 13:01 WBC (4.5-11.0) X10^3/uL RBC (4.0-5.2) X10^6/uL Hgb (12.0-16.0) g/dL Hct (36-46) % MCV (80-100) fL MCH (26-34) PG MCHC (30-36) % RDW (11.6-14.8) % Plt Count (150-400) X10^3/uL Neut % (Auto) (50-75) % Lymph % (Auto) (25-40) % [place] % (Auto) (3-14) % Eos % (Auto) (2-4) % Baso % (Auto) (0-2) % Neut # (Auto) (3123-2846) /uL Lymph # (Auto) (3402-0733) /uL [place] # (Auto) (0-900) /uL Eos # (Auto) (0-450) /uL Baso # (Auto) (0-100) /uL PT (10.1-12.7) SECONDS INR (0.9-1.3) Sodium (137-145) mmol/L Potassium (3.4-5.1) mmol/L Chloride (98-107) mmol/L Carbon Dioxide (22-32) mmol/L BUN (7-17) mg/dL Creatinine (0.52-1.04) mg/dL Estimated GFR (>60) mL/min BUN/Creatinine Ratio (6-22) Glucose (80-110) mg/dL Calcium (8.4-10.2) mg/dL Total Bilirubin (0.2-1.3) mg/dL AST (14-36) IU/L ALT (<35) IU/L Alkaline Phosphatase (38-126) U/L Total Protein (6.3-8.2) g/dL Albumin (3.5-5.0) g/dL Globulin (1.7-4.1) g/dL Albumin/Globulin Ratio (1.0-2.8) Lipase (23-300) U/L Urine RBC 1-5/hpf (0-5/HPF) Urine WBC None seen (0-5/HPF) Ur Squamous Epith Cells 1-5 /hpf (0-5/HPF) Urine Bacteria None seen (None) Ur Culture Indicated? Cult not indicated Point of care testing: Urine Dip Bedside Urine Glucose Negative Bedside Urine Bilirubin - Negative Bedside Urine Ketone - Negative Urine Specific [place] 1.005 Bedside Urine Occult Blood - Negative Bedside Urine pH 7.0 Bedside Urine Protein - Negative Bedside Urine Urobilinogen - Negative Bedside Urine Nitrite - Negative Bedside Urine Leukocytes +/- 15 Esterase MDM Narrative Medical decision making narrative: 77-year-old female with past medical history factor 5 Leiden, hypothyroidism, anticoagulated on warfarin, anxiety, hypertension, hyperlipidemia, atrial fibrillation, acid reflux presents to the ED with 3 days of left lower quadrant pain. Concern for diverticulitis versus intra-abdominal bleeding versus colitis versus other intra-abdominal pathology versus other. Will obtain labs, UA, CT abdomen pelvis. Patient's pain was treated with Tylenol with good relief. Labs, UA within normal limits. CT abdomen pelvis shows colitis secondary to uncomplicated diverticulitis without abscess. Discussed findings with patient. Patient prescribed antibiotics. ED return precautions were discussed with patient. Patient verbalized understanding. Medical records reviewed: Yes <Jordyn Fields, DO - Last Filed: 09/25/22 18:52> Lab Data Labs: Lab Results 09/25/22 09/25/22 09/25/22 Range/Units 12:42 12:42 12:42 WBC 7.7 (4.5-11.0) X10^3/uL RBC 4.36 (4.0-5.2) X10^6/uL Hgb 13.1 (12.0-16.0) g/dL Hct 39.4 (36-46) % MCV 90.4 (80-100) fL MCH 30.0 (26-34) PG MCHC 33.2 (30-36) % RDW 14.0 (11.6-14.8) % Plt Count 218 (150-400) X10^3/uL Neut % (Auto) 68.2 (50-75) % Lymph % (Auto) 19.3 L (25-40) % [place] % (Auto) 9.0 (3-14) % Eos % (Auto) 2.9 (2-4) % Baso % (Auto) 0.6 (0-2) % Neut # (Auto) 5300 (9240-7168) /uL Lymph # (Auto) 1500 (2757-8900) /uL [place] # (Auto) 700 (0-900) /uL Eos # (Auto) 200 (0-450) /uL Baso # (Auto) 0 (0-100) /uL PT 43.9 H (10.1-12.7) SECONDS INR 3.8 H (0.9-1.3) Sodium 138 (137-145) mmol/L Potassium 4.6 (3.4-5.1) mmol/L Chloride 103 (98-107) mmol/L Carbon Dioxide 28 (22-32) mmol/L BUN 14 (7-17) mg/dL Creatinine 0.92 (0.52-1.04) mg/dL Estimated GFR > 60 (>60) mL/min BUN/Creatinine Ratio 15.2 (6-22) Glucose 95 (80-110) mg/dL Calcium 9.0 (8.4-10.2) mg/dL Total Bilirubin 0.5 (0.2-1.3) mg/dL AST 70 H (14-36) IU/L ALT 53 H (<35) IU/L Alkaline Phosphatase 75 (38-126) U/L Total Protein 7.6 (6.3-8.2) g/dL Albumin 4.4 (3.5-5.0) g/dL Globulin 3.2 (1.7-4.1) g/dL Albumin/Globulin Ratio 1.4 (1.0-2.8) Lipase 110 (23-300) U/L Urine RBC (0-5/HPF) Urine WBC (0-5/HPF) Ur Squamous Epith Cells (0-5/HPF) Urine Bacteria (None) Ur Culture Indicated? 09/25/22 Range/Units 13:01 WBC (4.5-11.0) X10^3/uL RBC (4.0-5.2) X10^6/uL Hgb (12.0-16.0) g/dL Hct (36-46) % MCV (80-100) fL MCH (26-34) PG MCHC (30-36) % RDW (11.6-14.8) % Plt Count (150-400) X10^3/uL Neut % (Auto) (50-75) % Lymph % (Auto) (25-40) % [place] % (Auto) (3-14) % Eos % (Auto) (2-4) % Baso % (Auto) (0-2) % Neut # (Auto) (6836-2382) /uL Lymph # (Auto) (7373-2669) /uL [place] # (Auto) (0-900) /uL Eos # (Auto) (0-450) /uL Baso # (Auto) (0-100) /uL PT (10.1-12.7) SECONDS INR (0.9-1.3) Sodium (137-145) mmol/L Potassium (3.4-5.1) mmol/L Chloride (98-107) mmol/L Carbon Dioxide (22-32) mmol/L BUN (7-17) mg/dL Creatinine (0.52-1.04) mg/dL Estimated GFR (>60) mL/min BUN/Creatinine Ratio (6-22) Glucose (80-110) mg/dL Calcium (8.4-10.2) mg/dL Total Bilirubin (0.2-1.3) mg/dL AST (14-36) IU/L ALT (<35) IU/L Alkaline Phosphatase (38-126) U/L Total Protein (6.3-8.2) g/dL Albumin (3.5-5.0) g/dL Globulin (1.7-4.1) g/dL Albumin/Globulin Ratio (1.0-2.8) Lipase (23-300) U/L Urine RBC 1-5/hpf (0-5/HPF) Urine WBC None seen (0-5/HPF) Ur Squamous Epith Cells 1-5 /hpf (0-5/HPF) Urine Bacteria None seen (None) Ur Culture Indicated? Cult not indicated Point of care testing: Urine Dip Bedside Urine Glucose Negative Bedside Urine Bilirubin - Negative Bedside Urine Ketone - Negative Urine Specific [place] 1.005 Bedside Urine Occult Blood - Negative Bedside Urine pH 7.0 Bedside Urine Protein - Negative Bedside Urine Urobilinogen - Negative Bedside Urine Nitrite - Negative Bedside Urine Leukocytes +/- 15 Esterase Discharge Plan Departure Patient Disposition: Home Clinical Impression: Diverticulitis Instructions: DI for Diverticulitis Activity Restrictions/Additional Instructions: You were evaluated in the ED today for abdominal pain. Your CT abdomen pelvis did show diverticulitis, for which you are being prescribed the antibiotic Augmentin. Please complete the course of antibiotics as prescribed. A light fluid diet is indicated for the 1st 2 days, following which you may gradually increase to a normal diet. Please follow-up with your primary care physician in 3-5 days. Return to the ED if your symptoms worsen, you experience a fever, chills, you are persistently vomiting. Prescriptions: New metronidazole 500 mg tablet 500 mg PO Q8H 5 Days Qty: 15 0RF ciprofloxacin HCl 500 mg tablet 500 mg PO Q12H 5 Days Qty: 10 0RF amoxicillin-pot clavulanate 875-125 mg tablet 1 tab PO Q8H 5 Days Qty: 15 0RF No Action phenazopyridine [Pyridium] 200 mg tablet 200 mg PO TID PRN (Reason: pain) Qty: 6 0RF metoprolol tartrate 25 mg tablet See Rx Instructions .ROUTE .COMPLEX Qty: 180 3RF Dose Instruction: TAKE ONE TABLET BY MOUTH TWICE DAILY FOR BLOOD PRESSURE Rx Instructions: TAKE ONE TABLET BY MOUTH TWICE DAILY FOR BLOOD PRESSURE atorvastatin [Lipitor] 10 mg tablet 10 mg PO BEDTIME Qty: 90 3RF alprazolam [Xanax] 0.5 mg tablet 0.5 mg PO DAILY PRN (Reason: flight and dental anxiety) Qty: 10 2RF Rx Instructions: Max dose 1 per day acyclovir 400 mg tablet 400 mg PO TID PRN (Reason: Cold Sores) Qty: 30 2RF warfarin 10 mg tablet See Rx Instructions PO .COMPLEX Rx Instructions: 5 mg Saturday and 10 mg all other days, or as directed famotidine 20 mg tablet See Rx Instructions .ROUTE .COMPLEX Qty: 180 3RF Dose Instruction: TAKE ONE TABLET BY MOUTH TWICE DAILY for GERD Rx Instructions: TAKE ONE TABLET BY MOUTH TWICE DAILY FOR GERD calcium citrate 250 mg calcium Tablet 250 mg PO DAILY cholecalciferol (vitamin D3) [Vitamin D3] 1,000 unit Tablet 1,000 unit PO DAILY sodium fluoride-pot nitrate 1.1-5 % paste 1 applic Dental DAILY Referrals: Isabel Cummins ARNP [Primary Care Provider] - Stand Alone Forms: Patient Portal/API <Jordyn Fields DO - Last Filed: 09/25/22 18:52> Cosign ED Attending Christianature Attestation: I was immediately available in the department for consultation. Documentation has been reviewed.
[2022-09-25 16:06] VITALS: BP 142/68; PULSE 63; O2SAT 95
== END 2022-09-25 16:46 | disposition home or self-care (01) ==
PROVIDERS: Emergency Medicine; Emergency Provider Student in an Organized Health Care Education/Training Program; PCP Nurse Practitioner
DX: K57.92 Diverticulitis of intestine, part unspecified, without perforation or abscess without bleeding (principal); Z79.01 Long term (current) use of anticoagulants
CPT/HCPCS: 36415; 74177; 80053; 81003; 81015; 83690; 85025; 85610; 99284; Q9967

== ENCOUNTER 2022-10-31 11:54 | Emergency (ER) | payer MEDICARE, BC, SELFPAY ==
[2022-10-31 12:04] VITALS: BP 185/102; PULSE 72; RESP 18; TEMP 36.8; O2SAT 98; BMI 21.1
--- NOTE | 2022-10-31 12:14 | DI.CT.S_ITS ---
PROCEDURE: CT ABDOMEN PELVIS W CON INDICATIONS: abdominal pain/diverticulitis TECHNIQUE: After the administration of IV contrast, axial sections were acquired from the lung bases to the pubic symphysis. Coronal and sagittal reformats were performed. For radiation dose reduction, the following was used: automated exposure control, adjustment of mA and/or kV according to patient size. COMPARISON: [facility], CT, CT KIDNEY URETER BLADDER (KUB), 05/12/2018, 11:53. [facility], CT, CT ABDOMEN PELVIS W CON, 09/25/2022, 14:51. FINDINGS: Image quality: Excellent. Lung bases: Unremarkable. Heart: No significant findings. ABDOMEN: Liver: Small cyst at the dome. Gallbladder: Unremarkable. Biliary ducts: Unremarkable. Pancreas: Unremarkable. Spleen: Unremarkable. Adrenal Glands: Unremarkable. Kidneys and Ureters: No hydronephrosis. Stomach and Bowel: Stomach is not significantly distended. No small bowel obstruction. Diverticulosis. Sigmoid anastomosis. The appendix is not seen. Peritoneum: No abnormal intraperitoneal fluid. No free air. Ventral Wall: No hernia. Prior ventral abdominal wall mesh. Abdominal Nodes: No retroperitoneal or mesenteric adenopathy by size criteria. Vessels: Aorta and inferior vena cava are normal in size. PELVIS: Pelvic Organs: Prominent pelvic veins and left gonadal vein, unchanged. This could be seen in multiparous women or in pelvic congestion syndrome. Bladder: Unremarkable. Pelvic Nodes: No enlarged lymph nodes. Miscellaneous: No inguinal hernias are seen. Bones: Bilateral hip arthroplasties. No suspicious lesion. Multilevel DDD. IMPRESSION: No convincing acute diverticulitis. No free fluid. No pneumoperitoneum. Dictated by: Frank Moreno M.D. on 10/31/2022 at 14:07 Approved by: Frank Moreno M.D. on 10/31/2022 at 14:17
[2022-10-31 12:41] LABS: Add Manual Diff / Slide Review NO; Basophils Absolute Auto 100 /uL (0-100); Basophils Percent Auto 0.9 % (0-2); Eosinophils Absolute Auto 200 /uL (0-450); Eosinophils Percent Auto 3.5 % (2-4); Hematocrit 38.6 % (36-46); Hemoglobin 13.2 g/dL (12.0-16.0); Lymphocytes Absolute Auto 1700 /uL (1100-4500); Lymphocytes Percent Auto 29.5 % (25-40); Mean Corpuscular HGB Conc 34.3 % (30-36); Mean Corpuscular Hemoglobin 30.4 PG (26-34); Mean Corpuscular Volume 88.7 fL (80-100); Monocytes Absolute Auto 600 /uL (0-900); Monocytes Percent Auto 9.4 % (3-14); Neutrophils Absolute Auto 3300 /uL (1500-7000); Neutrophils Percent Auto 56.7 % (50-75); Platelet Count 248 X10^3/uL (150-400); Red Blood Cell Count 4.35 X10^6/uL (4.0-5.2); Red Cell Distribution Width 14.4 % (11.6-14.8); White Blood Cell Count 5.8 X10^3/uL (4.5-11.0)
[2022-10-31 12:44] LABS: Alanine Aminotransferase 21 IU/L (<35); Albumin 4.8 g/dL (3.5-5.0); Albumin Globulin Ratio 1.5 (1.0-2.8); Alkaline Phosphatase 66 U/L (38-126); Aspartate Aminotransferase 36 IU/L (14-36); BUN Creatinine Ratio 22.2 (6-22); Bilirubin Total 0.5 mg/dL (0.2-1.3); Blood Urea Nitrogen 18 mg/dL (7-17); Calcium 8.7 mg/dL (8.4-10.2); Carbon Dioxide 24 mmol/L (22-32); Chloride 104 mmol/L (98-107); Estimated Glomerular Filt Rate > 60 mL/min (>60); Globulin 3.1 g/dL (1.7-4.1); Glucose 93 mg/dL (80-110); HEMOLYSIS 17 (0-50); Potassium 4.5 mmol/L (3.4-5.1); Sodium 138 mmol/L (137-145); Total Protein 7.9 g/dL (6.3-8.2)
[2022-10-31 13:45] VITALS: BP 174/78; PULSE 60; O2SAT 99
--- NOTE | 2022-10-31 13:45 | ED_ITS ---
HPI - Abdominal Pain <Juanjo Skaggs PA-C - Last Filed: 10/31/22 14:58> General Chief Complaint: Abdominal Pain Stated Complaint: diverticulitus Time Seen by Provider: 10/31/22 12:13 Source: patient Mode of arrival: Ambulatory History of Present Illness HPI narrative: This is a 77 year old female presents emergency department due to abdominal pain. Patient was diagnosed with diverticulitis and prescribed Augmentin 3 weeks ago. She reports being increasingly exhausted over the last 3 weeks but did complete the course of antibiotics as prescribed.. History of ruptured diverticulitis in the past and is concerned that this is happening again. Requesting CT scan. She denies any nausea, vomiting, chest pain, shortness breath, or any other concerning signs or symptoms. States that the sole complaint is increased fatigue. Denies any slurred speech, facial drooping, focal weakness, or any other concerning signs or symptoms. Sharp so reports occasional cramping of the right lower quadrant area for the last 4-5 months. Related Data Home Medications Medication Instructions Recorded Confirmed sodium fluoride 1.1 %-potassium 1 applic dental DAILY 12/02/17 10/16/22 nitrate 5 % dental paste calcium citrate 250 mg PO DAILY 05/12/18 10/16/22 cholecalciferol (vitamin D3) 25 1,000 unit PO DAILY 05/12/18 10/16/22 mcg (1,000 unit) tablet (Vitamin D3) warfarin 10 mg tablet See Rx Instructions PO .COMPLEX 01/09/22 10/16/22 Previous Rx's Medication Instructions Recorded alprazolam 0.5 mg tablet (Xanax) 0.5 mg PO DAILY PRN flight and 04/20/16 dental anxiety #10 tabs metoprolol tartrate 25 mg tablet See Rx Instructions .Route 01/29/22 .COMPLEX #180 tabs atorvastatin 10 mg tablet (Lipitor) 10 mg PO BEDTIME #90 tabs 02/05/22 famotidine 20 mg tablet See Rx Instructions .Route 02/13/22 .COMPLEX #180 tabs acyclovir 400 mg tablet 400 mg PO TID PRN Cold Sores #30 06/19/22 tabs amoxicillin 875 mg-potassium 1 tab PO Q8H 5 days #15 tabs 10/16/22 clavulanate 125 mg tablet cyclosporine 0.05 % eye drops 1 drp ophthalmic (eye) Q12H #5.5 mL 10/16/22 (Restasis MultiDose) Allergies Allergy/AdvReac Type Severity Reaction Status Date / Time No Known Drug Allergies Allergy Verified 10/31/22 12:10 Review of Systems <Juanjo Skaggs PA-C - Last Filed: 10/31/22 14:58> Review of Systems Narrative: GENERAL: Reports fatigue, Denies chills, , malaise, fever, sweats. HEENT: Denies sinus pain, ear pain, sore throat, difficulty swallowing, dizziness. RESPIRATORY: Denies dyspnea, cough, wheezing, hemoptysis, sputum. CARDIOVASCULAR: Denies chest pain, palpitations, orthopnea, edema, GASTROINTESTINAL: Occasional right-sided cramping abdominal pain, otherwise Denies nausea, vomiting, abdominal pain, diarrhea, constipation, melena. : Denies dysuria, frequency, incontinence, hematuria, urinary retention. MUSCULOSKELETAL: denies weakness, joint pain, or bony pain SKIN: Denies rash, skin lesions, or other NEUROLOGIC: Denies weakness, headache, numbness, change in speech, confusion, seizures, incoordination. PSYCHIATRIC: No concerning psychosocial issues. 12 point review of systems is negative except for those stated above Patient History <Juanjo Skaggs PA-C - Last Filed: 10/31/22 14:58> Medical History Anticoagulated on warfarin Anxiety (1970) Anxiety (Unknown) Arthritis Atrial fibrillation (2004) Betancourt's cyst Cataracts, bilateral (Unknown) Chickenpox (~1950) Difficulty swallowing Diverticular disease (2009) Effusion of right knee joint Esophageal dysphagia Fractures (2006) Gastric reflux Heberden's nodes of both hands Herpes (2002) Hyperlipemia (Unknown) Laceration of ear Left bundle branch [facility] current use of anticoagulant therapy Measles (~1955) Mumps (~1955) On beta ildefonso at home Osteoarthritis (2001) Osteopenia (Unknown) Osteoporosis (Unknown) Other [facility] (current) drug therapy Right knee pain Sprain of medial collateral ligament of knee Tricompartment osteoarthritis of right knee Wears glasses Surgical History History of hip replacement History of hip replacement Status post colostomy Status post hernia repair Status post hernia repair Family History Father Hypertension Mental health problem Mother Hypertension Hyperlipidemia Social History household members: none Smoking Status: Never smoker alcohol intake: former Smoking Status: Never smoker alcohol intake frequency: other Substance Use Type: does not use Exam <Juanjo Skaggs PA-C - Last Filed: 10/31/22 14:58> Narrative Exam Narrative: GENERAL: Well-developed patient, in mild distress. HEAD: Atraumatic. Normocephalic. EYES: Pupils equal round and reactive. Extraocular motions intact. No scleral icterus. No injection or drainage. ENT: Nose without bleeding, purulent drainage. Throat without erythema, tonsillar hypertrophy or exudate. Airway patent. NECK: Trachea midline. Non tender CARDIOVASCULAR: Regular rate and rhythm without murmurs, gallops, or rubs. RESPIRATORY: Clear to auscultation. Breath sounds equal bilaterally. No wheezes, rales, or rhonchi. GASTROINTESTINAL: Abdomen soft, non-tender, nondistended. EXTREMITIES: No edema or joint tenderness. BACK: Nontender without deformity or crepitance. No flank tenderness. NEURO: AOx3. Cranial nerves 2-12 intact SKIN: No rash or erythema of visible areas Initial Vital Signs Initial Vital Signs: Vital Signs Temperature 98.3 F 10/31/22 12:04 Pulse Rate 72 10/31/22 12:04 Respiratory Rate 18 10/31/22 12:04 Blood Pressure 185/102 H 10/31/22 12:04 Pulse Oximetry 98 10/31/22 12:04 Oxygen Delivery Method Room Air 10/31/22 12:04 <Bahman Isaac MD - Last Filed: 11/08/22 03:20> Initial Vital Signs Initial Vital Signs: Vital Signs Temperature 98.3 F 10/31/22 12:04 Pulse Rate 72 10/31/22 12:04 Respiratory Rate 18 10/31/22 12:04 Blood Pressure 185/102 H 10/31/22 12:04 Pulse Oximetry 98 10/31/22 12:04 Oxygen Delivery Method Room Air 10/31/22 12:04 Course <Juanjo Skaggs PA-C - Last Filed: 10/31/22 14:58> Orders Ordered: Discontinued Medications Sodium Chloride (Normal Saline 0.9%) 1,000 mls @ 1,000 mls/hr IV BOLUS ONE Stop: 10/31/22 13:12 Last Infusion: 10/31/22 14:53 Dose: 0 mls/hr Documented By: Admin: 10/31/22 14:17 Dose: 1,000 mls/hr Documented By: LEEANN Vital Signs Vital signs: Vital Signs - 8 hr 10/31/22 12:04 10/31/22 13:45 10/31/22 13:45 Temperature 98.3 F Pulse Rate 72 60 Respiratory Rate 18 Blood Pressure 185/102 H 174/78 H Pulse Oximetry 98 99 Oxygen Delivery Method Room Air 10/31/22 14:00 10/31/22 14:00 10/31/22 14:31 Temperature Pulse Rate 58 L Respiratory Rate 20 Blood Pressure 157/71 H Pulse Oximetry 99 96 Oxygen Delivery Method Room Air <Bahman Isaac MD - Last Filed: 11/08/22 03:20> Orders Ordered: Discontinued Medications Sodium Chloride (Normal Saline 0.9%) 1,000 mls @ 1,000 mls/hr IV BOLUS ONE Stop: 10/31/22 13:12 Last Infusion: 10/31/22 14:53 Dose: 0 mls/hr Documented By: Admin: 10/31/22 14:17 Dose: 1,000 mls/hr Documented By: LEEANN Vital Signs Vital signs: Vital Signs - 8 hr 10/31/22 12:04 10/31/22 13:45 10/31/22 13:45 Temperature 98.3 F Pulse Rate 72 60 Respiratory Rate 18 Blood Pressure 185/102 H 174/78 H Pulse Oximetry 98 99 Oxygen Delivery Method Room Air 10/31/22 14:00 10/31/22 14:00 10/31/22 14:31 Temperature Pulse Rate 58 L Respiratory Rate 20 Blood Pressure 157/71 H Pulse Oximetry 99 96 Oxygen Delivery Method Room Air MDM - Abdominal Pain <Juanjo Skaggs PA-C - Last Filed: 10/31/22 14:58> Lab Data 10/31/22 12:25 10/31/22 12:25 Labs: Lab Results 10/31/22 10/31/22 Range/Units 12:25 12:25 WBC 5.8 (4.5-11.0) X10^3/uL RBC 4.35 (4.0-5.2) X10^6/uL Hgb 13.2 (12.0-16.0) g/dL Hct 38.6 (36-46) % MCV 88.7 (80-100) fL MCH 30.4 (26-34) PG MCHC 34.3 (30-36) % RDW 14.4 (11.6-14.8) % Plt Count 248 (150-400) X10^3/uL Neut % (Auto) 56.7 (50-75) % Lymph % (Auto) 29.5 (25-40) % Stafford % (Auto) 9.4 (3-14) % Eos % (Auto) 3.5 (2-4) % Baso % (Auto) 0.9 (0-2) % Neut # (Auto) 3300 (2894-5311) /uL Lymph # (Auto) 1700 (4245-1569) /uL Stafford # (Auto) 600 (0-900) /uL Eos # (Auto) 200 (0-450) /uL Baso # (Auto) 100 (0-100) /uL Sodium 138 (137-145) mmol/L Potassium 4.5 (3.4-5.1) mmol/L Chloride 104 (98-107) mmol/L Carbon Dioxide 24 (22-32) mmol/L BUN 18 H (7-17) mg/dL Creatinine 0.81 (0.52-1.04) mg/dL Estimated GFR > 60 (>60) mL/min BUN/Creatinine Ratio 22.2 H (6-22) Glucose 93 (80-110) mg/dL Calcium 8.7 (8.4-10.2) mg/dL Total Bilirubin 0.5 (0.2-1.3) mg/dL AST 36 (14-36) IU/L ALT 21 (<35) IU/L Alkaline Phosphatase 66 (38-126) U/L Total Protein 7.9 (6.3-8.2) g/dL Albumin 4.8 (3.5-5.0) g/dL Globulin 3.1 (1.7-4.1) g/dL Albumin/Globulin Ratio 1.5 (1.0-2.8) Imaging Data CT scan - abdomen/pelvis: Radiologist's Impression: [address] [address] [address] Scan Report Signed Patient: Jewell Henderson MR#: [id number] : 1945 Acct:[id number] Age/Sex: 77 / F Date of Service: 10/31/22 Loc: ED Accession Number: [id number] ?? Procedure: CT abdomen pelvis w con Ordering Provider: Bahman Isaac MD PROCEDURE:? CT ABDOMEN PELVIS W CON ? INDICATIONS:? abdominal pain/diverticulitis ? TECHNIQUE:? After the administration of IV contrast, axial sections were acquired from the lung bases to the pubic symphysis.? Coronal and sagittal reformats were performed.? For radiation dose reduction, the following was used:? automated exposure control, adjustment of mA and/or kV according to patient size. ? COMPARISON:? [facility], CT, CT KIDNEY URETER BLADDER (KUB), 05/12/2018, 11:53.? [facility], CT, CT ABDOMEN PELVIS W CON, 09/25/2022, 14:51. ? FINDINGS:? Image quality:? Excellent.? ? Lung bases:? Unremarkable.? ? Heart:? No significant findings. ? ? ABDOMEN: Liver:? Small cyst at the dome.? ? Gallbladder:? Unremarkable.? ? Biliary ducts:? Unremarkable.? ? Pancreas:? Unremarkable.? ? Spleen:? Unremarkable.? ? Adrenal Glands:? Unremarkable.? ? Kidneys and Ureters:? No hydronephrosis. ? Stomach and Bowel:? Stomach is not significantly distended.? No small bowel obstruction.? Diverticulosis.? Sigmoid anastomosis.? The appendix is not seen. Peritoneum:? No abnormal intraperitoneal fluid.? No free air.? ? Ventral Wall: ? No hernia.? Prior ventral abdominal wall mesh.? Abdominal Nodes:? No retroperitoneal or mesenteric adenopathy by size criteria.? Vessels:? Aorta and inferior vena cava are normal in size.? ? PELVIS: Pelvic Organs:? Prominent pelvic veins and left gonadal vein, unchanged.? This could be seen in multiparous women or in pelvic congestion syndrome. Bladder:? Unremarkable.? ? Pelvic Nodes: No enlarged lymph nodes.? Miscellaneous: No inguinal hernias are seen. ? ? ? Bones:? Bilateral hip arthroplasties.? No suspicious lesion.? Multilevel DDD. ? ? IMPRESSION:? No convincing acute diverticulitis.? No free fluid.? No pneumoperitoneum. ? Dictated by: Frank Moreno M.D. on 10/31/2022 at 14:07 ? ? Approved by: Frank Moreno M.D. on 10/31/2022 at 14:17 ? MDM Narrative Medical decision making narrative: MDM * differential diagnosis includes but not limited to diverticulitis, diverticulosis, perforation, abscess, URI * Prior records reviewed: Patient was seen about a month ago due to diverticulitis. History of factor 5 Leiden, hypothyroidism, anticoagulated on warfarin, anxiety, hypertension, hyperlipidemia, atrial fibrillation, acid reflux. Patient has a distant history of diverticulitis prior to that. But did state out perforated and she needs surgery for it. CT abdomen and pelvis showed colitis secondary to uncomplicated diverticulitis without abscess. Patient was prescribed Augmentin, * My lab interpretation: CBC and CMP unremarkable. No leukocytosis, low concern for infection. 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 * Clinical Decision Rules/Scores evaluated: None * Independent discussions with: None ED Course: This is a 77-year-old female presents emergency department due to concerns of an abdominal abscess or perforation that she has a states that she is a history of diverticulitis with perforation. Patient was treated with diverticulitis about 3 weeks ago and was prescribed Augmentin which she took as prescribed. She is stating that she reports increased fatigue after taking the antibiotics. She denies any slurred speech, headaches, weakness, chest pain, shortness of breath, or any other symptoms to workup. The CT abdomen and pelvis showed no evidence of a recurrent diverticulitis or abscess or perforation. Recommended patient follow up with the primary care provider for further workup and evaluation if the fatigue continues. Shared Decision Making: Discussed plan with the patient who is comfortable with the plan. Social Considerations: None Disposition: Discharged to home <Bahman Isaac MD - Last Filed: 11/08/22 03:20> Lab Data Labs: Lab Results 10/31/22 10/31/22 Range/Units 12:25 12:25 WBC 5.8 (4.5-11.0) X10^3/uL RBC 4.35 (4.0-5.2) X10^6/uL Hgb 13.2 (12.0-16.0) g/dL Hct 38.6 (36-46) % MCV 88.7 (80-100) fL MCH 30.4 (26-34) PG MCHC 34.3 (30-36) % RDW 14.4 (11.6-14.8) % Plt Count 248 (150-400) X10^3/uL Neut % (Auto) 56.7 (50-75) % Lymph % (Auto) 29.5 (25-40) % Stafford % (Auto) 9.4 (3-14) % Eos % (Auto) 3.5 (2-4) % Baso % (Auto) 0.9 (0-2) % Neut # (Auto) 3300 (8367-9418) /uL Lymph # (Auto) 1700 (2423-5847) /uL Stafford # (Auto) 600 (0-900) /uL Eos # (Auto) 200 (0-450) /uL Baso # (Auto) 100 (0-100) /uL Sodium 138 (137-145) mmol/L Potassium 4.5 (3.4-5.1) mmol/L Chloride 104 (98-107) mmol/L Carbon Dioxide 24 (22-32) mmol/L BUN 18 H (7-17) mg/dL Creatinine 0.81 (0.52-1.04) mg/dL Estimated GFR > 60 (>60) mL/min BUN/Creatinine Ratio 22.2 H (6-22) Glucose 93 (80-110) mg/dL Calcium 8.7 (8.4-10.2) mg/dL Total Bilirubin 0.5 (0.2-1.3) mg/dL AST 36 (14-36) IU/L ALT 21 (<35) IU/L Alkaline Phosphatase 66 (38-126) U/L Total Protein 7.9 (6.3-8.2) g/dL Albumin 4.8 (3.5-5.0) g/dL Globulin 3.1 (1.7-4.1) g/dL Albumin/Globulin Ratio 1.5 (1.0-2.8) Discharge Plan Departure Patient Disposition: Home Clinical Impression: Fatigue Activity Restrictions/Additional Instructions: Thank you for coming to the [facility] Emergency Department today. Your lab work showed no evidence of infection or anemia or electrolyte abnormalities. Your CT abdomen and pelvis showed no acute findings and did not show any perforations or abscesses as you were concerned about. I recommend you follow up with the primary care provider for further workup and evaluation if the fatigue continues. I hope you feel better soon. Prescriptions: No Action metoprolol tartrate 25 mg tablet See Rx Instructions .ROUTE .COMPLEX Qty: 180 3RF Dose Instruction: TAKE ONE TABLET BY MOUTH TWICE DAILY FOR BLOOD PRESSURE Rx Instructions: TAKE ONE TABLET BY MOUTH TWICE DAILY FOR BLOOD PRESSURE atorvastatin [Lipitor] 10 mg tablet 10 mg PO BEDTIME Qty: 90 3RF acyclovir 400 mg tablet 400 mg PO TID PRN (Reason: Cold Sores) Qty: 30 2RF alprazolam [Xanax] 0.5 mg tablet 0.5 mg PO DAILY PRN (Reason: flight and dental anxiety) Qty: 10 2RF Rx Instructions: Max dose 1 per day warfarin 10 mg tablet See Rx Instructions PO .COMPLEX Rx Instructions: 5 mg Saturday and 10 mg all other days, or as directed famotidine 20 mg tablet See Rx Instructions .ROUTE .COMPLEX Qty: 180 3RF Dose Instruction: TAKE ONE TABLET BY MOUTH TWICE DAILY for GERD Rx Instructions: TAKE ONE TABLET BY MOUTH TWICE DAILY FOR GERD Restasis MultiDose 0.05 % drops 1 drp ophthalmic (eye) Q12H Qty: 5.5 8RF amoxicillin-pot clavulanate 875-125 mg tablet 1 tab PO Q8H 5 Days Qty: 15 3RF calcium citrate 250 mg calcium Tablet 250 mg PO DAILY cholecalciferol (vitamin D3) [Vitamin D3] 1,000 unit Tablet 1,000 unit PO DAILY sodium fluoride-pot nitrate 1.1-5 % paste 1 applic Dental DAILY Referrals: Isabel Cummins ARNP [Primary Care Provider] - Stand Alone Forms: Patient Portal/API <Bahman Isaac MD - Last Filed: 11/08/22 03:20> Cosign ED Attending Cosignature Attestation: I was immediately available in the department for consultation. ?This documentation has been reviewed and I agree with assessment and plan. Supervised by Bahman Isaac MD
[2022-10-31 14:00] VITALS: BP 157/71; PULSE 58; RESP 20; O2SAT 99
[2022-10-31] MEDS: SODIUM CHLORIDE 0.9% 1,000 ML 1000 ML IV (14:17)
[2022-10-31 14:31] VITALS: O2SAT 96
== END 2022-10-31 14:55 | disposition home or self-care (01) ==
PROVIDERS: Emergency Medicine; Emergency Provider Physician Assistant Medical; PCP Nurse Practitioner
DX: R10.9 Unspecified abdominal pain (principal); R53.83 Other fatigue
CPT/HCPCS: 36415; 74177; 80053; 85025; 99284; Q9967

== ENCOUNTER 2023-01-25 06:07 | Emergency (ER) | payer MEDICARE, BC, SELFPAY ==
[2023-01-25] VITALS (9 sets, daily range): BP systolic 134–155; BP diastolic 61–73; PULSE 49–132; RESP 15–36; TEMP 36.9; O2SAT 95–98; BMI 21.1
--- NOTE | 2023-01-25 06:28 | ED_ITS ---
HPI - Abdominal Pain <Jordyn DO Diamond - Last Filed: 01/25/23 18:58> General Chief Complaint: Abdominal Pain Stated Complaint: ABD PAIN Time Seen by Provider: 01/25/23 06:24 Source: patient Mode of arrival: Family Vehicle History of Present Illness HPI narrative: Patient 77-year-old female past medical history diverticulitis, factor 5 [place] on warfarin atrial fibrillation, hypertension presenting today with right-sided abdominal pain ongoing for last couple of days. She was seen evaluated in the ED in October for pain at that time. She previously did have diverticulitis with an abscess over the last 2 times she is been to the ED for abdominal pain really nothing was found. She reports this pain is different diverticulitis pain is really on the left this is on the right. She is having some flank pain. Mild nausea no vomiting. She is unable to sleep at night because the pain is so severe. She is not taken anything at home for the pain. She denies fever chills painful frequent urination chest pain shortness of breath or other symptoms. Related Data Home Medications Medication Instructions Recorded Confirmed sodium fluoride 1.1 %-potassium 1 applic dental DAILY 12/02/17 12/10/22 nitrate 5 % dental paste calcium citrate 250 mg PO DAILY 05/12/18 12/10/22 cholecalciferol (vitamin D3) 25 1,000 unit PO DAILY 05/12/18 12/10/22 mcg (1,000 unit) tablet (Vitamin D3) Previous Rx's Medication Instructions Recorded alprazolam 0.5 mg tablet (Xanax) 0.5 mg PO DAILY PRN flight and 04/20/16 dental anxiety #10 tabs atorvastatin 10 mg tablet (Lipitor) 10 mg PO BEDTIME #90 tabs 02/05/22 famotidine 20 mg tablet See Rx Instructions .Route 02/13/22 .COMPLEX #180 tabs acyclovir 400 mg tablet 400 mg PO TID PRN Cold Sores #30 06/19/22 tabs cyclosporine 0.05 % eye drops 1 drp ophthalmic (eye) Q12H #5.5 mL 10/16/22 (Restasis MultiDose) warfarin 10 mg tablet See Rx Instructions PO .COMPLEX 11/13/22 #180 tabs metoprolol tartrate 25 mg tablet See Rx Instructions .Route 01/23/23 .COMPLEX #180 tabs tramadol 50 mg tablet 50 mg PO Q8H PRN pain #10 tabs 01/25/23 Allergies Allergy/AdvReac Type Severity Reaction Status Date / Time No Known Drug Allergies Allergy Verified 01/25/23 06:17 Review of Systems <Jordyn Fields DO - Last Filed: 01/25/23 18:58> Review of Systems ROS Unobtainable: All systems reviewed & are unremarkable except as noted in HPI and below Patient History <Jordyn Fields DO - Last Filed: 01/25/23 18:58> Medical History Anticoagulated on warfarin Anxiety (1970) Anxiety (Unknown) Arthritis Atrial fibrillation (2004) Betancourt's cyst Cataracts, bilateral (Unknown) Chickenpox (~1950) Difficulty swallowing Diverticular disease (2009) Effusion of right knee joint Esophageal dysphagia Fractures (2006) Gastric reflux Heberden's nodes of both hands Herpes (2002) Hyperlipemia (Unknown) Laceration of ear Left bundle branch block jail current use of anticoagulant therapy Measles (~1954) Mumps (~1954) On beta ildefonso at home Osteoarthritis (2001) Osteopenia (Unknown) Osteoporosis (Unknown) Other watermelon harvesting supervisor (current) drug therapy Right knee pain Sprain of medial collateral ligament of knee Tricompartment osteoarthritis of right knee Wears glasses Surgical History History of hip replacement History of hip replacement Status post colostomy Status post hernia repair Status post hernia repair Family History Father Hypertension Mental health problem Mother Hypertension Hyperlipidemia Social History household members: none Smoking Status: Never smoker alcohol intake: former Smoking Status: Never smoker alcohol intake frequency: other Substance Use Type: does not use Exam <Jordyn Fields DO - Last Filed: 01/25/23 18:58> Initial Vital Signs Initial Vital Signs: Vital Signs Temperature 98.4 F 01/25/23 06:10 Pulse Rate 56 L 01/25/23 06:10 Respiratory Rate 18 01/25/23 06:10 Blood Pressure 155/73 H 01/25/23 06:10 Pulse Oximetry 97 01/25/23 06:10 Oxygen Delivery Method Room Air 01/25/23 06:10 GENERAL: Alert mildly anxious 77-year-old female no acute distress HEENT: Head atraumatic,EOMI, pupils reactive, face symmetric, [moist] mucous membranes CARDIOVASCULAR: Regular rate and rhythm without murmurs, rubs or gallops. RESPIRATORY: Breath sounds equal bilaterally, no wheezes rales or rhonchi. ABDOMEN: Soft, nontender. Normoactive bowel sounds all 4 quadrants. No guarding or rebound. Negative Nichole's sign. No right lower quadrant pain : No CVA tenderness EXTREMITIES: Normal range of motion, no clubbing or edema. Neurovascularly intact NEUROLOGICAL: Alert and oriented x4. SKIN: Warm, dry, no laceration, no petechiae, no rashes or lesions. <Royce Gracia DO - Last Filed: 01/25/23 08:16> Initial Vital Signs Initial Vital Signs: Vital Signs Temperature 98.4 F 01/25/23 06:10 Pulse Rate 56 L 01/25/23 06:10 Respiratory Rate 18 01/25/23 06:10 Blood Pressure 155/73 H 01/25/23 06:10 Pulse Oximetry 97 01/25/23 06:10 Oxygen Delivery Method Room Air 01/25/23 06:10 Course <Jordyn Fielsd DO - Last Filed: 01/25/23 18:58> Orders Ordered: Discontinued Medications Ketorolac Tromethamine (Ketorolac 30 Mg/Ml Vial) 15 mg IV NOW ONE Stop: 01/25/23 06:37 Last Admin: 01/25/23 07:08 Dose: 15 mg Documented By: JOJO Ondansetron HCl (Ondansetron 4 Mg/2 Ml Inj) 4 mg IV NOW ONE Stop: 01/25/23 06:37 Last Admin: 01/25/23 07:08 Dose: 4 mg Documented By: JOJO Vital Signs Vital signs: Vital Signs - 8 hr 01/25/23 06:10 01/25/23 06:27 01/25/23 06:28 Temperature 98.4 F Pulse Rate 56 L 54 L Respiratory Rate 18 Blood Pressure 155/73 H 151/70 H Pulse Oximetry 97 97 Oxygen Delivery Method Room Air Room Air 01/25/23 06:28 01/25/23 06:30 01/25/23 06:30 Temperature Pulse Rate 53 L 60 Respiratory Rate 15 Blood Pressure 137/63 Pulse Oximetry 96 95 Oxygen Delivery Method Room Air Room Air <Royce Gracia DO - Last Filed: 01/25/23 08:16> Orders Ordered: Discontinued Medications Ketorolac Tromethamine (Ketorolac 30 Mg/Ml Vial) 15 mg IV NOW ONE Stop: 01/25/23 06:37 Last Admin: 01/25/23 07:08 Dose: 15 mg Documented By: JOJO Ondansetron HCl (Ondansetron 4 Mg/2 Ml Inj) 4 mg IV NOW ONE Stop: 01/25/23 06:37 Last Admin: 01/25/23 07:08 Dose: 4 mg Documented By: JOJO Vital Signs Vital signs: Vital Signs - 8 hr 01/25/23 06:10 01/25/23 06:27 01/25/23 06:28 Temperature 98.4 F Pulse Rate 56 L 54 L Respiratory Rate 18 Blood Pressure 155/73 H 151/70 H Pulse Oximetry 97 97 Oxygen Delivery Method Room Air Room Air 01/25/23 06:28 01/25/23 06:30 01/25/23 06:30 Temperature Pulse Rate 53 L 60 Respiratory Rate 15 Blood Pressure 137/63 Pulse Oximetry 96 95 Oxygen Delivery Method Room Air Room Air MDM - Abdominal Pain <Jordyn Fields DO - Last Filed: 01/25/23 18:58> Lab Data 01/25/23 06:30 01/25/23 06:30 Labs: Lab Results 01/25/23 01/25/23 01/25/23 Range/Units 06:30 06:30 06:30 WBC 4.8 (4.5-11.0) X10^3/uL RBC 4.23 (4.0-5.2) X10^6/uL Hgb 12.8 (12.0-16.0) g/dL Hct 38.1 (36-46) % MCV 90.1 (80-100) fL MCH 30.3 (26-34) PG MCHC 33.7 (30-36) % RDW 14.1 (11.6-14.8) % Plt Count 215 (150-400) X10^3/uL Neut % (Auto) 62.9 (50-75) % Lymph % (Auto) 26.3 (25-40) % [place] % (Auto) 8.2 (3-14) % Eos % (Auto) 2.0 (2-4) % Baso % (Auto) 0.6 (0-2) % Neut # (Auto) 3000 (9033-5991) /uL Lymph # (Auto) 1300 (3096-1548) /uL [place] # (Auto) 400 (0-900) /uL Eos # (Auto) 100 (0-450) /uL Baso # (Auto) 0 (0-100) /uL PT 25.2 H (10.1-12.7) SECONDS INR 2.2 H (0.9-1.3) Sodium 140 (137-145) mmol/L Potassium 4.1 (3.4-5.1) mmol/L Chloride 104 (98-107) mmol/L Carbon Dioxide 27 (22-32) mmol/L BUN 14 (7-17) mg/dL Creatinine 0.90 (0.52-1.04) mg/dL Estimated GFR > 60 (>60) mL/min BUN/Creatinine Ratio 15.6 (6-22) Glucose 118 H (80-110) mg/dL Calcium 9.3 (8.4-10.2) mg/dL Total Bilirubin 0.7 (0.2-1.3) mg/dL AST 37 H (14-36) IU/L ALT 21 (<35) IU/L Alkaline Phosphatase 67 (38-126) U/L Total Protein 7.3 (6.3-8.2) g/dL Albumin 4.5 (3.5-5.0) g/dL Globulin 2.8 (1.7-4.1) g/dL Albumin/Globulin Ratio 1.6 (1.0-2.8) Lipase 114 (23-300) U/L Point of care testing: Urine Dip Bedside Urine Glucose Negative Bedside Urine Bilirubin - Negative Bedside Urine Ketone - Negative Urine Specific [place] 1.005 Bedside Urine Occult Blood - Negative Bedside Urine pH 7.5 Bedside Urine Protein - Negative Bedside Urine Urobilinogen - Negative Bedside Urine Nitrite - Negative Bedside Urine Leukocytes - Negative Esterase MDM Narrative Medical decision making narrative: Patient presents today with right-sided abdominal pain. Blood work and CT pending. Signed out to Dr. Gracia. Patient does have benign exam. Workup here in the emergency department is relatively unremarkable. No fevers. No skin rashes. Had a discussion with the patient regarding her symptoms and she understands lack of a definitive diagnosis. There is no indication for admission to the hospital. Will dis charge patient home she already is in the works to talk with GI about a repeat colonoscopy. She expressed understanding and agreement. <Royce Gracia, DO - Last Filed: 01/25/23 08:16> Lab Data Labs: Lab Results 01/25/23 01/25/23 01/25/23 Range/Units 06:30 06:30 06:30 WBC 4.8 (4.5-11.0) X10^3/uL RBC 4.23 (4.0-5.2) X10^6/uL Hgb 12.8 (12.0-16.0) g/dL Hct 38.1 (36-46) % MCV 90.1 (80-100) fL MCH 30.3 (26-34) PG MCHC 33.7 (30-36) % RDW 14.1 (11.6-14.8) % Plt Count 215 (150-400) X10^3/uL Neut % (Auto) 62.9 (50-75) % Lymph % (Auto) 26.3 (25-40) % [place] % (Auto) 8.2 (3-14) % Eos % (Auto) 2.0 (2-4) % Baso % (Auto) 0.6 (0-2) % Neut # (Auto) 3000 (0483-2232) /uL Lymph # (Auto) 1300 (0572-2836) /uL [place] # (Auto) 400 (0-900) /uL Eos # (Auto) 100 (0-450) /uL Baso # (Auto) 0 (0-100) /uL PT 25.2 H (10.1-12.7) SECONDS INR 2.2 H (0.9-1.3) Sodium 140 (137-145) mmol/L Potassium 4.1 (3.4-5.1) mmol/L Chloride 104 (98-107) mmol/L Carbon Dioxide 27 (22-32) mmol/L BUN 14 (7-17) mg/dL Creatinine 0.90 (0.52-1.04) mg/dL Estimated GFR > 60 (>60) mL/min BUN/Creatinine Ratio 15.6 (6-22) Glucose 118 H (80-110) mg/dL Calcium 9.3 (8.4-10.2) mg/dL Total Bilirubin 0.7 (0.2-1.3) mg/dL AST 37 H (14-36) IU/L ALT 21 (<35) IU/L Alkaline Phosphatase 67 (38-126) U/L Total Protein 7.3 (6.3-8.2) g/dL Albumin 4.5 (3.5-5.0) g/dL Globulin 2.8 (1.7-4.1) g/dL Albumin/Globulin Ratio 1.6 (1.0-2.8) Lipase 114 (23-300) U/L Point of care testing: Urine Dip Bedside Urine Glucose Negative Bedside Urine Bilirubin - Negative Bedside Urine Ketone - Negative Urine Specific [place] 1.005 Bedside Urine Occult Blood - Negative Bedside Urine pH 7.5 Bedside Urine Protein - Negative Bedside Urine Urobilinogen - Negative Bedside Urine Nitrite - Negative Bedside Urine Leukocytes - Negative Esterase Imaging Data CT scan - abdomen/pelvis: Radiologist's Impression: No acute abnormalities appreciated Unremarkable gallbladder and bile ducts Colonic diverticula but no CT findings to confirm diverticulitis MDM Narrative Medical decision making narrative: Patient does have benign exam. Workup here in the emergency department is relatively unremarkable. No fevers. No skin rashes. Had a discussion with the patient regarding her symptoms and she understands lack of a definitive diagnosis. There is no indication for admission to the hospital. Will discharge patient home she already is in the works to talk with GI about a repeat colonoscopy. She expressed understanding and agreement. Discharge Plan Departure Patient Disposition: Home Clinical Impression: Abdominal pain Instructions: DI for Abdominal Pain-Adult Activity Restrictions/Additional Instructions: Recommend that you continue to take all of your medications as directed and contact your primary doctor to continue to work on getting the referral for Gastroenterology. Return to the emergency department for new symptoms. Prescriptions: New tramadol 50 mg tablet 50 mg PO Q8H PRN (Reason: pain) Qty: 10 0RF No Action atorvastatin [Lipitor] 10 mg tablet 10 mg PO BEDTIME Qty: 90 3RF acyclovir 400 mg tablet 400 mg PO TID PRN (Reason: Cold Sores) Qty: 30 2RF warfarin 10 mg tablet See Rx Instructions PO .COMPLEX Qty: 180 3RF Rx Instructions: 5 mg Ana and 10 mg all other days, or as directed metoprolol tartrate 25 mg tablet See Rx Instructions .ROUTE .COMPLEX Qty: 180 2RF Dose Instruction: TAKE ONE TABLET BY MOUTH TWICE DAILY FOR BLOOD PRESSURE Rx Instructions: TAKE ONE TABLET BY MOUTH TWICE DAILY FOR BLOOD PRESSURE alprazolam [Xanax] 0.5 mg tablet 0.5 mg PO DAILY PRN (Reason: flight and dental anxiety) Qty: 10 2RF Rx Instructions: Max dose 1 per day famotidine 20 mg tablet See Rx Instructions .ROUTE .COMPLEX Qty: 180 3RF Dose Instruction: TAKE ONE TABLET BY MOUTH TWICE DAILY for GERD Rx Instructions: TAKE ONE TABLET BY MOUTH TWICE DAILY FOR GERD Restasis MultiDose 0.05 % drops 1 drp ophthalmic (eye) Q12H Qty: 5.5 8RF calcium citrate 250 mg calcium Tablet 250 mg PO DAILY cholecalciferol (vitamin D3) [Vitamin D3] 1,000 unit Tablet 1,000 unit PO DAILY sodium fluoride-pot nitrate 1.1-5 % paste 1 applic Dental DAILY Referrals: Isabel Cummins ARNP [Primary Care Provider] - Stand Alone Forms: Patient Portal/API
--- NOTE | 2023-01-25 06:36 | DI.CT.S_ITS ---
PROCEDURE: CT ABDOMEN PELVIS W CON INDICATIONS: right sided pain TECHNIQUE: After the administration of intravenous contrast, axial sections acquired from the lung bases to the pubic symphysis. Coronal and sagittal reformats were performed. For radiation dose reduction, the following was used: automated exposure control, adjustment of mA and/or kV according to patient size. COMPARISON: [facility], CT, CT ABDOMEN PELVIS W CON, 10/31/2022, 13:25. FINDINGS: Image quality: Excellent. Lung bases: Linear scarring/atelectasis and noted scattered at bilateral lung bases.. Heart: Heart size is mildly enlarged, no pericardial effusion. ABDOMEN: Liver: Small cyst in dome of right hepatic lobe is again seen unchanged from prior study.. Gallbladder: Within normal limits. Biliary ducts: Unremarkable. Pancreas: Unremarkable. Spleen: Unremarkable. Adrenal Glands: Unremarkable. Kidneys and Ureters: Bilateral peripelvic renal cysts are again seen unchanged from prior study. No hydronephrosis or hydroureter. Stomach and Bowel: There is no bowel obstruction. No abnormal bowel wall thickening or mesenteric fat stranding. Colonic diverticulosis is again seen without colonic wall thickening or pericolonic fat stranding. No abscess collection. Peritoneum: No abnormal intraperitoneal fluid. No free air. Ventral Wall: No hernias. Abdominal Nodes: No retroperitoneal or mesenteric adenopathy by size criteria. Vessels: Aorta and inferior vena cava are normal in size. PELVIS: Pelvic Organs: Grossly unremarkable.. Bladder: Grossly unremarkable. Pelvic Nodes: No enlarged lymph nodes. Miscellaneous: No hernias are seen. Bones: There is prior bilateral total hip arthroplasty with significant beam hardening artifacts. No suspicious bony lesions. No acute vertebral body compression fracture. Degenerative disc disease throughout lower thoracic and lumbar spine is seen. IMPRESSION: 1. No acute inflammatory process is seen in abdomen or pelvis. No significant changes from previous study. 2. Chronic colonic diverticulosis without CT evidence of acute diverticulitis. No abscess collection. No free fluid or free air. No discrepancies from preliminary reading. Dictated by: Mart Lima M.D. on 01/25/2023 at 8:15 Approved by: Mart Lima M.D. on 01/25/2023 at 8:20
[2023-01-25 06:43] LABS: Add Manual Diff / Slide Review NO; Basophils Absolute Auto 0 /uL (0-100); Basophils Percent Auto 0.6 % (0-2); Eosinophils Absolute Auto 100 /uL (0-450); Hematocrit 38.1 % (36-46); Hemoglobin 12.8 g/dL (12.0-16.0); Lymphocytes Absolute Auto 1300 /uL (1100-4500); Lymphocytes Percent Auto 26.3 % (25-40); Mean Corpuscular HGB Conc 33.7 % (30-36); Mean Corpuscular Hemoglobin 30.3 PG (26-34); Mean Corpuscular Volume 90.1 fL (80-100); Monocytes Absolute Auto 400 /uL (0-900); Monocytes Percent Auto 8.2 % (3-14); Neutrophils Absolute Auto 3000 /uL (1500-7000); Neutrophils Percent Auto 62.9 % (50-75); Platelet Count 215 X10^3/uL (150-400); Red Blood Cell Count 4.23 X10^6/uL (4.0-5.2); Red Cell Distribution Width 14.1 % (11.6-14.8); White Blood Cell Count 4.8 X10^3/uL (4.5-11.0)
[2023-01-25 06:46] LABS: INR 2.2 (0.9-1.3); Prothrombin Time 25.2 SECONDS (10.1-12.7)
[2023-01-25 06:49] LABS: Alanine Aminotransferase 21 IU/L (<35); Albumin 4.5 g/dL (3.5-5.0); Albumin Globulin Ratio 1.6 (1.0-2.8); Alkaline Phosphatase 67 U/L (38-126); Aspartate Aminotransferase 37 IU/L (14-36); BUN Creatinine Ratio 15.6 (6-22); Bilirubin Total 0.7 mg/dL (0.2-1.3); Blood Urea Nitrogen 14 mg/dL (7-17); Calcium 9.3 mg/dL (8.4-10.2); Carbon Dioxide 27 mmol/L (22-32); Chloride 104 mmol/L (98-107); Estimated Glomerular Filt Rate > 60 mL/min (>60); Globulin 2.8 g/dL (1.7-4.1); Glucose 118 mg/dL (80-110); HEMOLYSIS < 15 (0-50); Lipase 114 U/L (23-300); Potassium 4.1 mmol/L (3.4-5.1); Sodium 140 mmol/L (137-145); Total Protein 7.3 g/dL (6.3-8.2)
[2023-01-25] MEDS: KETOROLAC 30 MG/ML VIAL 15 MG IV (07:08)
[2023-01-25] MEDS: ONDANSETRON 4 MG/2 ML INJ IV (07:08)
== END 2023-01-25 08:22 | disposition home or self-care (01) ==
PROVIDERS: Emergency Medicine; Emergency Provider Emergency Medicine; PCP Nurse Practitioner
DX: R10.9 Unspecified abdominal pain (principal)
CPT/HCPCS: 36415; 74177; 80053; 81003; 83690; 85025; 85610; 96374; 96375; 99284; J1885; J2405

== ENCOUNTER → 2023-02-18 11:52 | Outpatient (CLI) | payer MEDICARE, BC, SELFPAY | PROVIDERS: PCP Nurse Practitioner; Visit Provider Physician Assistant | DX: L98.9 Disorder of the skin and subcutaneous tissue, unspecified (principal) | CPT/HCPCS: 87070; 87075; 87205 ==

== ENCOUNTER → 2023-05-29 12:40 | Outpatient (CLI) | payer MEDICARE, BC, SELFPAY ==
--- NOTE | 2023-05-29 12:41 | DI.MG.S_ITS ---
BILATERAL DIGITAL SCREENING MAMMOGRAM 3D/2D WITH CAD: 05/29/2023 CLINICAL: Routine screening. Family history of breast cancer. Comparison is made to exams dated: 05/28/2022 mammogram, 05/23/2021 mammogram, and 04/01/2020 mammogram - . There are scattered areas of fibroglandular density in both breasts (category b / 25%-50% glandular tissue). Current study was also evaluated with a Computer Aided Detection (CAD) system. No significant masses, calcifications, or other findings are seen in either breast. There has been no significant interval change. IMPRESSION: NEGATIVE There is no mammographic evidence of malignancy. A 1 year screening mammogram is recommended. Based on the Tyrer Cuzick model (a risk assessment model) the patient's lifetime risk is 2.5% and her 10 year risk is 2.5%. According to the ACR, ACS, and NCCN guidelines, an annual breast MRI exam along with mammogram is recommended if the patient's lifetime risk is 20% or greater. This exam was interpreted at Station ID: [id number]. NOTE: For mammograms, a report in lay terms will be sent to the patient. Approximately 15% of breast malignancies will not be visualized mammographically. In the management of a palpable breast mass, a negative mammogram must not discourage biopsy of a clinically suspicious lesion. Electronically Signed By: Mini cruz/karen:05/29/2023 17:01:42 letter sent: Normal Exam ACR BI-RADS Category 1: Negative [id number]
== END ==
PROVIDERS: PCP Nurse Practitioner; Referring Provider Nurse Practitioner; Visit Provider Nurse Practitioner
DX: Z12.31 Encounter for screening mammogram for malignant neoplasm of breast (principal); Z80.3 Family history of malignant neoplasm of breast
CPT/HCPCS: 77063; 77067

== ENCOUNTER → 2023-06-06 14:12 | Outpatient (CLI) | payer MEDICARE, BC, SELFPAY ==
--- NOTE | 2023-06-06 14:15 | DI.RAD.S_ITS ---
PROCEDURE: XR ELBOW RT MIN 3V INDICATIONS: Right elbow pain TECHNIQUE: 3 views of the elbow were acquired. COMPARISON: None. FINDINGS: Bones: Olecranon fracture is widely distracted by more than 2.6 cm with rotation. Associated large joint effusion. Soft tissues: No elbow joint effusion. No suspicious soft tissue calcifications. IMPRESSION: Widely distracted olecranon fracture with joint effusion Approved by: Car Bernal M.D. on 06/06/2023 at 18:32
== END ==
PROVIDERS: PCP Nurse Practitioner; Referring Provider Nurse Practitioner Family; Visit Provider Nurse Practitioner Family
DX: S52.021A Displaced fracture of olecranon process without intraarticular extension of right ulna, initial encounter for closed fracture (principal); S50.01XA Contusion of right elbow, initial encounter; M25.421 Effusion, right elbow; X58.XXXA Exposure to other specified factors, initial encounter
CPT/HCPCS: 73080

== ENCOUNTER → 2023-06-07 16:42 | Outpatient (CLI) | payer MEDICARE, BC, SELFPAY ==
--- NOTE | 2023-06-07 16:45 | DI.RAD.S_ITS ---
PROCEDURE: XR ELBOW RT 2V INDICATIONS: right elbow fracture TECHNIQUE: 1 views of the elbow were acquired. COMPARISON: [facility], CR, XR ELBOW RT MIN 3V, 06/06/2023, 14:44. FINDINGS: Bones: Comminuted olecranon fracture with distraction. No dislocations. No suspicious bony lesions. Soft tissues: Anterior and posterior elbow joint effusion. No suspicious soft tissue calcifications. IMPRESSION: Comminuted olecranon fracture with distraction. Dictated by: Frank Moreno M.D. on 06/07/2023 at 17:25 Approved by: Frank Moreno M.D. on 06/07/2023 at 17:26
== END ==
PROVIDERS: PCP Nurse Practitioner; Referring Provider Physician Assistant; Visit Provider Physician Assistant
DX: S52.021A Displaced fracture of olecranon process without intraarticular extension of right ulna, initial encounter for closed fracture (principal); X58.XXXA Exposure to other specified factors, initial encounter
CPT/HCPCS: 73070

== ENCOUNTER 2023-06-26 10:12 | Day surgery (SDC) | payer MEDICARE, BC, SELFPAY ==
[2023-06-20 08:11] VITALS: BMI 20.8
[2023-06-26] VITALS (8 sets, daily range): BP systolic 113–139; BP diastolic 66–77; PULSE 54–68; RESP 14–21; TEMP 36.1–36.8; O2SAT 97–100; BMI 19.8
--- NOTE | 2023-06-26 | DI.RAD.S_ITS ---
PROCEDURE: XR ELBOW RT MIN 3V INDICATIONS: RIGHT ORIF OLECRANON TECHNIQUE: 12 spot fluoroscopic intraoperative images of the elbow were acquired. COMPARISON: [facility], , XR ELBOW RT MIN 3V, 06/06/2023, 14:44. FINDINGS: Multiple spot fluoroscopic intraoperative images demonstrate posterior olecranon fracture fixation with a metal plate and screw construct. Hardware components are in expected positions. IMPRESSION: Intraoperative images demonstrate internal fixation of the previously seen olecranon fracture. Approved by: Marlon Luo M.D. on 06/26/2023 at 15:59
[2023-06-26] MEDS: LACTATED RINGERS 1,000 ML 42 ML IV ×2 (10:58→14:12)
[2023-06-26] MEDS: ACETAMINOPHEN 325 MG TABLET 975 MG PO (10:58)
--- NOTE | 2023-06-26 12:12 | SUR.PREOP ---
Block start time 1220 with a time out. Monitoring initiated and maintained throughout procedure. Oxygen and medications given by anesthesiology provider. Patient remained stable throughout procedure, no adverse reactions noted. Block end time 1230.
--- NOTE | 2023-06-26 12:27 | PM.HP.1 ---
History of Present Illness History of Present Illness Date Patient Seen: 06/26/23 Time Patient Seen: 12:27 Date of Onset of Symptoms: 06/05/23 Chief complaint: Right ORIF olecranon fx Narrative: Patient is a 77-year-old left-hand dominant female that was in [place] being the [facility] when she fell and sustained a right olecranon fracture. Displaced comminuted fracture. She was initially seen in the emergency room and splinted but had a trip planned to [place] to visit her daughter and went on her trip. She returns today for fixation. She does have a past medical history of factor 5 Leiden and takes Eliquis at baseline. She also takes metoprolol and has a history of osteoporosis and takes risedronate. Pain only at her right elbow. She did have an excoriation to her leg into her face. No loss of consciousness. No previous surgeries or injuries to the elbow on the right side. She is otherwise active and healthy female. 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 Right knee pain Cataracts, bilateral (Unknown) Anxiety (Unknown) Osteopenia (Unknown) Osteoporosis (Unknown) Hyperlipemia (Unknown) Anxiety (1970) Osteoarthritis (2001) Fractures (2006) Chickenpox (~1950) Measles (~1955) Mumps (~1955) Herpes (2002) Diverticular disease (2009) Atrial fibrillation (2004) Surgical History History of knee surgery (12/2019) Hx of parathyroidectomy (09/2018) Status post hernia repair Status post hernia repair Status post colostomy History of hip replacement History of hip replacement Family History Father Hypertension Mental health problem Mother Hypertension Hyperlipidemia Social History household members: none Smoking Status: Never smoker alcohol intake: former Meds Home Medications and Allergies Home Medications Medication Instructions Recorded Confirmed Type alprazolam 0.5 mg tablet (Xanax) 0.5 mg PO DAILY PRN flight and 04/20/16 06/26/23 Rx dental anxiety #10 tabs sodium fluoride 1.1 %-potassium 1 applic dental DAILY 12/02/17 06/26/23 History nitrate 5 % dental paste calcium citrate 250 mg PO DAILY 05/12/18 06/26/23 History cholecalciferol (vitamin D3) 25 1,000 unit PO DAILY 05/12/18 06/26/23 History mcg (1,000 unit) tablet (Vitamin D3) atorvastatin 10 mg tablet (Lipitor) 10 mg PO BEDTIME #90 tabs 01/29/23 06/26/23 Rx propranolol 80 mg capsule,24 80 mg PO DAILY 03/07/23 06/26/23 History hr,extended release apixaban 5 mg tablet 5 mg PO BID #60 tabs 03/20/23 06/25/23 Rx acyclovir 400 mg tablet 400 mg PO TID PRN Cold Sores #30 05/08/23 06/26/23 Rx tabs polyethylene glycol 3350 17 gram 17 g PO .QOD 06/03/23 06/26/23 History oral powder packet (Miralax) cyclosporine 0.05 % eye drops 1 drp ophthalmic (eye) Q12H PRN 06/26/23 06/26/23 History (Restasis MultiDose) Dry Eyes famotidine 20 mg tablet 20 mg PO DAILY 06/26/23 06/26/23 History Allergies Allergy/AdvReac Type Severity Reaction Status Date / Time No Known Drug Allergies Allergy Verified 06/26/23 10:32 Review of Systems Review of Systems Narrative: No fevers chills nausea vomiting numbness tingling or lightheadedness. Endorses pain around the right elbow. ROS: Yes All systems reviewed with the patient and are negative except as otherwise documented Exam Vital Signs (past 8 hours): - 06/26/23 10:42 Temperature 98.2 F Pulse Rate 64 Respiratory Rate 18 Blood Pressure 135/74 Pulse Oximetry 99 Oxygen Delivery Method Room Air Oxygen Delivery Method Room Air Narrative Exam Narrative: General exam alert and oriented no acute distress HEENT exam normocephalic atraumatic Lung exam clear to auscultation bilateral Heart regular rate Musculoskeletal examination. Right upper extremity splint is removed. Small scab. Minimal swelling. There is some ecchymosis along the forearm. No open wounds. The patient is able to actively flex the elbow. Unable to get to full extension lacks about 30? and palpable gap at the level of the olecranon fracture. Sensation grossly intact median radial ulnar nerves. Demonstrates finger flexion extension thumb flexion and extension EPL and FPL function. Palpable radial pulse. Full range of motion of the left upper extremity and bilateral lower extremities. Objective Imaging X-ray of the right elbow two views: My impression: Displaced, comminuted olecranon fracture right Assessment & Plan Assessment and plan (1) Fracture of olecranon process, right, closed: Status: Acute Plan Patient has a displaced olecranon fracture of the right elbow. She lacks full extension function. She was indicated for open reduction internal fixation of her fracture to restore alignment and mechanical advantage of the triceps. She has otherwise a healthy active individual. She does have a history of factor 5 Leiden and DVTs. She we will restart her anticoagulation on postoperative day 1. We discussed risks of surgery and alternatives and benefits of surgery. The risks and benefits of the procedure have been discussed with the patient and given the opportunity to ask questions. The risks of surgery include but are not limited to infection, malunion, nonunion, persistence of pain, damage to nerves and blood vessels, posttraumatic arthritis, DVT, PE, cardiopulmonary complications and . The patient expressed a thorough understanding of the risks and benefits of surgery and has elected to proceed. Consent was signed . Quality VTE Deep Vein Thrombosis/Pulmonary Embolism Present on Admission: No
[2023-06-26] MEDS: CEFAZOLIN 2 GM/100 ML PREMIX 100 ML IV (12:46)
--- NOTE | 2023-06-26 13:25 | SUR.OPER ---
Lateral on a porter bag, head on pillow, gel axillary roll in place, bottom leg bent with gel pad under knee to foot, upper leg straight and supported with pillows. left arm to padded arm board. Operative arm draped free and resting on lateral post and padded gardner. Safety belt at hip, tape over blanket lower legs.
[2023-06-26] MEDS: BUPIVACAINE 0.25% (PF) 30 ML, EPINEPHrine 0.15 MG INJ (13:31)
--- NOTE | 2023-06-26 15:30 | SUR.PHASEII ---
Pt to Phase II. Pt states she is very groggy. Pt appears pale. Pt unable to get up and get dressed as too groggy. Pt laid back down. Yaritza called back to inform her that the pt needed more time (had originally been called by PACU).
--- NOTE | 2023-06-26 16:16 | P.OP_ITS ---
Operative Date/Time/Diagnoses Date of procedure: 06/26/23 Time of procedure: 14:00 Pre-op diagnosis: Right intra-articular olecranon fracture s52.031 Post-op diagnosis: same Procedure & Clinicians Procedure: Open reduction internal fixation right intra-articular olecranon fracture CPT code 25107 Same procedure as scheduled: Yes Indications: The patient is a 77-year-old left-hand dominant female that had a fall and sustained a displaced comminuted right intra-articular olecranon fracture disruption of the extensor mechanism. She was indicated for surgical treatment. The risks and benefits of the procedure have been discussed with the patient and given the opportunity to ask questions. The risks of surgery include but are not limited to infection, malunion, nonunion, persistence of pain, damage to nerves and blood vessels, posttraumatic arthritis, DVT, PE, cardiopulmonary complications and . The patient expressed a thorough understanding of the risks and benefits of surgery and has elected to proceed. Consent was signed. The patient has a history of factor 5 Leiden heterozygous. She typically takes Eliquis. She has been off of this appropriately preoperatively. Surgeon: Sandra Flores Click Yes if Unassisted: Yes Anesthesia Type: General, Peripheral nerve block and Local Operative Notes Findings: Displaced comminuted intra-articular right olecranon fracture. This was reduced and fixed with a Taveras and Nephew evos contoured locking olecranon plate without Closure Type: primary Specimen(s): none sent Prosthetic devices, grafts, tissues, transplants, or devices: Taveras and nephew evos olecranon plate 2 hole with nonlocking and locking 3.5 screws distally nonlocking and locking 2.7 screws proximal Estimated Blood Loss (mL): 30 Blood products transfused: none Tourniquet time (min): 49 Procedure in detail: The patient was seen in the preoperative area. Site of surgery was marked informed consent confirmed. Final questions were answered. The patient underwent a regional block with the anesthesia team for postoperative pain control. Patient was taken to the operative room and positioned supine position. General anesthetic was administered. Patient was then rolled into the lateral position on a beanbag with the right side up. All bony prominences were well padded. An axillary roll was placed. A nonsterile brachial tourniquet was applied. The arm was taken over a arm roll and the positioned secured. Upper extremity was then prepped and draped in standard sterile fashion a formal time-out procedure was performed confirming the patient's side and site of surgery administration of appropriate preoperative antibiotic. All were in agreement. Implants were in the room and accounted for. Attention was turned to the right upper extremity the Esmarch was used for exsanguination the tourniquet elevated on the upper arm to 250 mmHg. Attention was turned to the elbow curvilinear incision curving radially of the olecranon then extending proximally directly over the triceps and distally over the ulnar subcutaneous border was carried down through the skin and subcutaneous tissues. The fracture was encountered. The fracture edges were cleaned up and the scar from the almost 3-week-old fracture was cleared. The displaced intra-articular fracture was encountered. The joint was inspected and aligned and held reduced with a pointed reduction clamp and then with a K-wire. A low-profile olecranon plate was fit to the bone and x-rays taken to confirm appropriate plate choice. The short plate was selected. A small split was made in the triceps for this to fit down close to the bone proximally and this was then brought down to the bone and a nonlocking screw was placed in the oblong hole distally. Next nonlocking home-run screw was placed proximally compressing the bone and plate and the oblong screw was adjusted distally. Then locking screws were placed proximally and distally with 2.7 and 3.5 screws respectively. Range of motion was checked there was felt to be some impingement therefore the coracoid screw was changed out for shorter screw. Full range of motion was demonstrated on live C-arm fluo roscopy in the AP and lateral planes. Full supination pronation was demonstrated for anatomic alignment. This point the tourniquet was released hemostasis was achieved the wound was irrigated and closed in layers with 2-0 and 3-0 Vicryl suture followed by 4-0 Monocryl and 3-0 nylon suture. Additional 20 cc of 0.25% Marcaine with epinephrine were infiltrated for local anesthetic. A sterile well-padded posterior splint and dressing were applied with Xeroform gauze Webril and a posterior splint in gentle resting flexion. Patient was woken from anesthesia and taken to the recovery room in good condition there no immediate complications with the procedure. All counts were correct. Complications: none Post-operative Condition: stable Disposition: PACU Plan for aftercare: 2 lb weight limit operative extremity. Keep posterior splint in place until follow up in 2 weeks then will start range of motion and therapy. A commenced wrist and finger motion immediately. A splint dry. Restart Eliquis postoperative day 1.
--- NOTE | 2023-06-26 17:20 | SUR.PHASEII ---
1640 Pt DC to home with friend after being able to void in BR, tolerated coffee and juice. No pain. Hand warm and pink. In sling.
== END 2023-06-26 16:45 | disposition home or self-care (01) ==
PROVIDERS: PCP Nurse Practitioner; Referring Provider Orthopaedic Surgery Foot and Ankle Surgery; Visit Provider Orthopaedic Surgery Foot and Ankle Surgery
PROC: (CPT 24685; principal; 2023-06-26 11:45)
DX: S52.031A Displaced fracture of olecranon process with intraarticular extension of right ulna, initial encounter for closed fracture (principal); Z86.718 Personal history of other venous thrombosis and embolism; W19.XXXA Unspecified fall, initial encounter; Y93.89 Activity, other specified
CPT/HCPCS: 24685; 64415; 73080; 76000; C1776; J0171; J0690; J1100; J2250; J2405; J2704; J3010

== ENCOUNTER → 2023-07-30 09:16 | Outpatient (CLI) | payer MEDICARE, BC, SELFPAY ==
[2023-07-30 10:58] LABS: Alanine Aminotransferase 13 IU/L (<35); Albumin Globulin Ratio 1.5 (1.0-2.8); Alkaline Phosphatase 62 U/L (38-126); Aspartate Aminotransferase 25 IU/L (14-36); BUN Creatinine Ratio 21.7 (6-22); Bilirubin Total 0.5 mg/dL (0.2-1.3); Blood Urea Nitrogen 18 mg/dL (7-17); Carbon Dioxide 26 mmol/L (22-32); Chloride 105 mmol/L (98-107); Cholesterol 139 mg/dL (140-199); Estimated Glomerular Filt Rate > 60 mL/min (>60); Globulin 2.7 g/dL (1.7-4.1); Glucose 93 mg/dL (80-110); HDL Cholesterol 66 mg/dL (40-60); HEMOLYSIS < 15 (0-50); LDL Cholesterol Calculated 64 mg/dL (<100); Potassium 4.1 mmol/L (3.4-5.1); Sodium 138 mmol/L (137-145); Total Protein 6.7 g/dL (6.3-8.2); Triglycerides 47 mg/dL (35-150)
[2023-07-30 18:17] LABS: Microalbumin Urine Random < 0.6 mg/dL (0-1.6)
[2023-07-30 18:41] LABS: Creatinine Urine Random 54.2 mg/dL
== END ==
PROVIDERS: PCP Nurse Practitioner; Referring Provider Nurse Practitioner; Visit Provider Nurse Practitioner
DX: E89.2 Postprocedural hypoparathyroidism (principal); E78.5 Hyperlipidemia, unspecified; R73.9 Hyperglycemia, unspecified
CPT/HCPCS: 36415; 80053; 80061; 82043; 82570

== ENCOUNTER → 2024-06-01 12:47 | Outpatient (CLI) | payer MEDICARE, BC, SELFPAY ==
--- NOTE | 2024-06-01 12:48 | DI.MG.S_ITS ---
BILATERAL DIGITAL SCREENING MAMMOGRAM 3D/2D WITH CAD: 06/01/2024 CLINICAL: Routine screening. Family history of breast cancer. Comparison is made to exams dated: 05/29/2023 mammogram, 05/28/2022 mammogram, and 05/23/2021 mammogram - [facility]. There are scattered areas of fibroglandular density (category b / 25%-50% glandular tissue). Current study was also evaluated with a Computer Aided Detection (CAD) system. No significant masses, calcifications, or other findings are seen in either breast. There has been no significant interval change. IMPRESSION: NEGATIVE There is no mammographic evidence of malignancy. A 1 year screening mammogram is recommended. Based on the Tyrer Cuzick model (a risk assessment model) the patient's lifetime risk is 2.3% and her 10 year risk is 0.0%. According to the ACR, ACS, and NCCN guidelines, an annual breast MRI exam along with mammogram is recommended if the patient's lifetime risk is 20% or greater. This exam was interpreted at Station ID: [id number]. NOTE: For mammograms, a report in lay terms will be sent to the patient. Approximately 15% of breast malignancies will not be visualized mammographically. In the management of a palpable breast mass, a negative mammogram must not discourage biopsy of a clinically suspicious lesion. Electronically Signed By: Yuan [email or web address]:06/01/2024 16:46:13 letter sent: Normal Exam ACR BI-RADS Category 1: Negative
== END ==
LOC: MAMMO 12:48
PROVIDERS: PCP Family Medicine; Referring Provider Family Medicine; Visit Provider Family Medicine
DX: Z12.31 Encounter for screening mammogram for malignant neoplasm of breast (principal); Z80.3 Family history of malignant neoplasm of breast
CPT/HCPCS: 77063; 77067

== ENCOUNTER → 2025-06-18 14:01 | Outpatient (CLI) | payer MEDICARE, BC, SELFPAY ==
--- NOTE | 2025-06-18 14:03 | DI.MG.S_ITS ---
MM screening mammo BI: 06/18/2025. BI-RADS: 1 CLINICAL: 79-year old female for bilateral screening mammogram. Tyrer-Cuzick lifetime risk of 2.4%. No personal or first-degree family history of breast cancer. Current reported family history of breast cancer: maternal uncle's daughter. PRIOR EXAMS 06/01/2024, 05/29/2023, 05/28/2022, 05/23/2021. MAMMOGRAPHY TECHNIQUE: 2D and 3D (tomosynthesis) digital mammographic views obtained, with additional images as needed for full coverage. Current study was also evaluated with a Computer Aided Detection (CAD) system. DENSITY C. The breasts are heterogeneously dense, which may obscure small masses. MAMMOGRAPHY FINDINGS Bilateral: No suspicious mass, asymmetry, microcalcification, or other abnormality seen. IMPRESSION: * No evidence of malignancy. RECOMMENDATIONS Bilateral * Annual screening mammography. OVERALL ASSESSMENT CATEGORY BI-RADS-1: Negative. The [employer] recommends annual screening mammography beginning at age 40 for women with average risk of breast cancer. ELECTRONICALLY SIGNED: Yessy Escobedo M.D. on 06/18/2025 at 05:13:03 PM PT Interpreting Station ID: [id number]
== END ==
LOC: MAMMO 14:02
PROVIDERS: PCP Family Medicine; Referring Provider Family Medicine; Visit Provider Family Medicine
DX: Z12.31 Encounter for screening mammogram for malignant neoplasm of breast (principal); R92.333 Mammographic heterogeneous density, bilateral breasts; Z80.3 Family history of malignant neoplasm of breast
CPT/HCPCS: 77063; 77067